=== PATIENT | female | born 1990 | race Caucasian/White ===

== ENCOUNTER → 2019-04-23 17:01 | Outpatient (CLI) | payer BC, SELFPAY ==
[2019-04-23 17:29] LABS: Basophils % 0.4 % (0.1-2.0); Eosinophils # 0.1 K/mm3 (0.0-0.4); Eosinophils % 0.5 % (0.1-12.0); Hematocrit 42.6 % (37.0-47.0); Hemoglobin 14.4 g/dL (12.2-16.2); Lymphocytes # 2.9 K/mm3 (0.7-4.5); Lymphocytes % 28.7 % (10-50); Mean Corpuscular HGB Conc 33.8 g/dL (31.8-35.4); Mean Corpuscular Hemoglobin 30.9 pg (27.0-31.2); Mean Corpuscular Volume 91.4 fl (81-99); Mean Platelet Volume 9.2 fl (7.4-10.4); Monocytes # 0.5 K/mm3 (0.1-1.0); Monocytes % 4.6 % (1.7-9.3); Neutrophils # 6.6 K/mm3 (1.8-7.8); Neutrophils % 65.8 % (37.0-80.0); Platelet Count 222 K/mm3 (142-424); Red Blood Count 4.66 M/mm3 (4.20-5.40); Red Cell Distribution Width 13.2 % (11.5-17.5)
[2019-04-23 18:14] LABS: Alanine Aminotransferase 18 U/L (12-78); Albumin Level 4.1 gm/dL (3.4-5.0); Albumin/Globulin Ratio 1.3 (1.1-1.8); Alkaline Phosphatase 81 U/L (46-116); Aspartate Amino Transferase 13 U/L (15-37); Bilirubin,Total 0.9 mg/dL (0.2-1.0); Blood Urea Nitrogen 16 mg/dL (7-18); Calcium 9.2 mg/dL (8.5-10.1); Carbon Dioxide 29 mmol/L (21.0-32.0); Chloride 102 mmol/L (98-107); Chol/HDL Ratio 2.7 (1-3.5); Cholesterol 161 mg/dL (140-200); Creatinine,Serum 0.75 mg/dL (0.55-1.02); Estimated Glomerular Filt Rate 91 ml/min (>60); GFR (African American) 110 ML/MIN (>60); Globulin 3.1 gm/dl (1.3-3.2); Glucose 87 mg/dL (74-106); HDL Cholesterol 59 mg/dL (29-89); LDL Cholesterol 86 mg/dL (0-130); Sodium 139 mmol/L (136-145); T4 (Thyroxine) 10.3 ug/dl (4.7-13.3); Thyroid Stimulating Hormone 0.68 uIU/ml (0.358-3.740); Total Protein,Serum 7.2 gm/dL (6.4-8.2); Triglycerides 81 mg/dL (30-200); VLDL Cholesterol 16 mg/dL (0-40)
[2019-04-24 19:02] LABS: Hemoglobin A1C 5.5 % (0.0-7.0)
[2019-04-27 06:36] LABS: Vitamin D 25 Hydroxy 18.8 ng/mL (30.0-100.0)
== END ==
PROVIDERS: Visit Provider Nurse Practitioner Family
DX: N89.8 Other specified noninflammatory disorders of vagina (principal); R53.83 Other fatigue
CPT/HCPCS: 80053; 80061; 82652; 83036; 84436; 84443; 85025; 87210

== ENCOUNTER → 2020-10-19 13:40 | Outpatient (CLI) | payer BC, SELFPAY ==
[2020-10-19 13:57] LABS: Alanine Aminotransferase 15 U/L (12-78); Albumin Level 4.5 g/dl (3.5-5.0); Albumin/Globulin Ratio 1.8 (1.1-1.8); Alkaline Phosphatase 74 U/L (38-126); Anion Gap 11.6 mEq/L (5-15); Aspartate Amino Transferase 21 U/L (14-36); Bilirubin,Total 1.4 mg/dl (0.2-1.3); Blood Urea Nitrogen 15 mg/dl (7-17); Calcium 8.7 mg/dl (8.4-10.2); Carbon Dioxide 28 mmol/L (22.0-30.0); Chloride 104 mmol/L (98-107); Chol/HDL Ratio 3.1 (1-3.5); Cholesterol 193 mg/dl (140-200); Estimated Glomerular Filt Rate 97 ml/min (>60); GFR (African American) 117 ML/MIN (>60); Globulin 2.5 g/dL (1.3-3.2); Glucose 107 mg/dl (74-100); HDL Cholesterol 62 mg/dl (40-60); Potassium 4.6 mmoL/L (3.5-5.1); Sodium 139 mmol/L (136-145); Triglycerides 68 mg/dl (30-150); VLDL Cholesterol 14 mg/dL (0-40)
[2020-10-19 14:08] LABS: Direct LDL Cholesterol 108.22 mg/dL (100-129)
[2020-10-19 14:13] LABS: 25-OH Vitamin D, Total 37.4 ng/mL (30-100)
[2020-10-19 14:20] LABS: Basophils % 0.4 % (0.1-2.0); Eosinophils # 0.1 K/mm3 (0.0-0.4); Eosinophils % 0.9 % (0.1-12.0); Hematocrit 43.4 % (37.0-47.0); Hemoglobin 14.3 g/dL (12.2-16.2); Lymphocytes # 2.4 K/mm3 (0.7-4.5); Lymphocytes % 33.6 % (10-50); Mean Corpuscular Hemoglobin 29.9 pg (27.0-31.2); Mean Corpuscular Volume 90.7 fl (81-99); Mean Platelet Volume 8.8 fl (7.4-10.4); Monocytes # 0.3 K/mm3 (0.1-1.0); Monocytes % 4.6 % (1.7-9.3); Neutrophils # 4.3 K/mm3 (1.8-7.8); Neutrophils % 60.5 % (37.0-80.0); Platelet Count 256 K/mm3 (142-424); Red Blood Count 4.78 M/mm3 (4.20-5.40); White Blood Count 7.1 K/mm3 (4.8-10.8)
[2020-10-19 14:27] LABS: Thyroid Stimulating Hormone 0.42 uIU/mL (0.465-4.68)
== END ==
PROVIDERS: Visit Provider Nurse Practitioner Family
DX: Z00.00 Encounter for general adult medical examination without abnormal findings (principal)
CPT/HCPCS: 80053; 80061; 82306; 84436; 84443; 85025

== ENCOUNTER 2021-04-23 12:27 | Emergency (ER) | payer BC, SELFPAY ==
[2021-04-23 15:00] VITALS: BP 124/77; PULSE 66; RESP 18; TEMP 36.9; O2SAT 99; BMI 26.6
--- NOTE | 2021-04-23 15:11 | HMH.EDUTC ---
[facility] [place] Disposition Clinical Impression: Pharyngitis Qualifiers: Pharyngitis/tonsillitis etiology: unspecified etiology Qualified Code(s): J02.9 - Acute pharyngitis, unspecified Disposition: Home, Self-Care Condition on Discharge: Good Instructions: Sore Throat, DI for Pharyngitis/Tonsillopharyngitis -- Adult Additional Instructions: Drink plenty of fluids. Take tylenol or ibuprofen for pain or fever. Take the medications as directed. Follow up with your regular doctor. GO TO THE ER FOR ANY WORSENING SYMPTOMS Prescriptions: Amoxicillin/Potassium Clav [Augmentin 500mg tab] 500 mg PO TID #30 tab Transmission Status: Received by [id number] predniSONE [Prednisone 20mg Tab] 20 mg PO BID 3 Days #6 tab Transmission Status: Received by [id number] Referrals: Shayla Glez PA [Primary Care Provider] - Forms: Work/School Release Time of Disposition: 15:15 Medical Decision Making - Medical Records Medical records reviewed: No: I reviewed the patient's medical records. - Rhett Inquiry Pt receiving controlled substance: No Vital Signs: 04/23/21 15:00 04/23/21 15:21 Temperature 98.4 F 98.4 F Temperature Source Oral Pulse Rate 66 Pulse Rate [Right Brachial] 66 Respiratory Rate 18 18 Blood Pressure 124/77 Blood Pressure [Right Arm] 124/77 Blood Pressure Mean [Right Arm] 92 Blood Pressure Source [Right Arm] Automatic Cuff Blood Pressure Position [Right Arm] Sitting 02 Sat by Pulse Oximetry 99 Oxygen Delivery Method Room Air Room Air - Lab Data Lab results reviewed: Yes: I reviewed the patient's lab results. Lab Results 04/23/21 14:36: Strep Scn Rapid Clinic Negative Orders (Tests/Meds): ORDERS Category Date Time Status Strep Screen Confirmation Routine Micro 04/23/21 14:36 Received [facility] [place] HPI - General Stated complaint: sore throat, runny nose, congestion Time Seen by Provider: 04/23/21 15:00 Mode of Arrival: Ambulatory Source of Information: Patient Description of Symptoms (Recalled from Triage Doc. by RN): sore throat. congestion. cough HEENT Symptoms (Recalled from RN notes): Yes Resp Symptoms (Recalled from RN notes): Yes Skin Symptoms (Recalled from RN notes): No MS Symptoms (Recalled from RN notes): No Functional Status (Recalled from RN notes): yes - History of Present Illness Provider Complaint: She c/o sore throat, sinus congestion, and a cough for the past 3 days. - Related Data Previous Rx's Medication Instructions Recorded bupropion HCl 100 mg tablet 100 mg PO BID #180 tab 10/20/20 lbiyvvwgquiffxx-tglzeumtlszygku-ON 5 ml PO Q4-6H PRN #118 ml 02/10/21 2 mg-30 mg-10 mg/5 mL oral syrup methylprednisolone 4 mg tablets in See Rx Instructions PO PER PKG DIR 02/10/21 a dose pack #21 tab ondansetron HCl 4 mg tablet 4 mg PO Q8H PRN #10 tab 02/10/21 fluconazole 150 mg tablet 150 mg PO Q OTHER DAY #3 tab 02/20/21 Amoxicillin/Potassium Clav 500 mg PO TID #30 tab 04/23/21 [Augmentin 500mg tab] predniSONE [Prednisone 20mg 20 mg PO BID 3 Days #6 tab 04/23/21 Tab] Allergies Allergy/AdvReac Type Severity Reaction Status Date / Time acetaminophen Allergy Mild Hives Verified 10/19/20 10:21 [From Childrens Tylenol Plus MS Cold] chlorpheniramine Allergy Mild Hives Verified 10/19/20 10:21 [From Childrens Tylenol Plus MS Cold] dextromethorphan Allergy Mild Hives Verified 10/19/20 10:21 [From Childrens Tylenol Plus MS Cold] phenylephrine Allergy Mild Hives Verified 10/19/20 10:21 [From Childrens Tylenol Plus MS Cold] - Worker's Comp Is this a Worker's Comp case?: No Is this an H Worker's Comp?: No Is this a Luis Armando Worker's Comp?: No [facility] History - Hepatitis A Screen Drug use history?: No High risk sexual behaviors?: No History of sexually transmitted infection?: No Currently employed?: No Childcare worker?: No Do you have indoor plumbing?: Yes Do
[2021-04-23 15:20] LABS: UTC Strep Screen (Rapid) Negative (Negative)
[2021-04-23 15:21] VITALS: BP 124/77; PULSE 66; RESP 18; TEMP 36.9; O2SAT 99
== END 2021-04-23 15:21 | disposition home or self-care (01) ==
PROVIDERS: Emergency Provider Nurse Practitioner Family; PCP Physician Assistant
DX: J02.9 Acute pharyngitis, unspecified (principal); F33.1 Major depressive disorder, recurrent, moderate; Z79.899 Other long term (current) drug therapy
CPT/HCPCS: 87880; 99202; G0463

== ENCOUNTER → 2021-07-26 14:48 | Outpatient (CLI) | payer BC, SELFPAY ==
[2021-07-26 14:00] LABS: Chloride 97 mmol/L (98-107)
[2021-07-26 14:01] LABS: Potassium 4.8 mmoL/L (3.5-5.1); Sodium 134 mmol/L (136-145)
[2021-07-26 14:03] LABS: Alanine Aminotransferase 18 U/L (12-78); Alkaline Phosphatase 79 U/L (38-126); Anion Gap 11.8 mEq/L (5-15); Aspartate Amino Transferase 31 U/L (14-36); Bilirubin,Total 1.2 mg/dl (0.2-1.3); Blood Urea Nitrogen 18 mg/dl (7-17); Carbon Dioxide 30 mmol/L (22.0-30.0); Cholesterol 216 mg/dl (140-200); Estimated Glomerular Filt Rate 96 ml/min (>60); GFR (African American) 117 ML/MIN (>60); Triglycerides 184 mg/dl (30-150); VLDL Cholesterol 37 mg/dL (0-40)
[2021-07-26 14:04] LABS: Albumin Level 4.7 g/dl (3.5-5.0); Albumin/Globulin Ratio 1.7 (1.1-1.8); Calcium 8.8 mg/dl (8.4-10.2); Chol/HDL Ratio 3.3 (1-3.5); Globulin 2.7 g/dL (1.3-3.2); Glucose 93 mg/dl (74-100); HDL Cholesterol 65 mg/dl (40-60); Total Protein,Serum 7.4 g/dl (6.3-8.2)
[2021-07-26 14:14] LABS: 25-OH Vitamin D, Total 33.6 ng/mL (30-100)
[2021-07-26 14:31] LABS: Thyroid Stimulating Hormone 0.91 uIU/mL (0.465-4.68)
== END ==
PROVIDERS: Visit Provider Physician Assistant
DX: R53.83 Other fatigue (principal); E66.9 Obesity, unspecified; Z68.29 Body mass index [BMI] 29.0-29.9, adult
CPT/HCPCS: 80053; 80061; 82306; 84443

== ENCOUNTER → 2021-07-27 16:00 | Outpatient (CLI) | payer BC, SELFPAY ==
[2021-07-27 20:33] LABS: Basophils % 0.6 % (0.1-2.0); Eosinophils # 0.1 K/mm3 (0.0-0.4); Hematocrit 45.1 % (37.0-47.0); Lymphocytes # 1.8 K/mm3 (0.7-4.5); Lymphocytes % 31.9 % (10-50); Mean Corpuscular HGB Conc 33.3 g/dL (31.8-35.4); Mean Corpuscular Hemoglobin 30.5 pg (27.0-31.2); Mean Corpuscular Volume 91.7 fl (81-99); Mean Platelet Volume 9.5 fl (7.4-10.4); Monocytes # 0.5 K/mm3 (0.1-1.0); Monocytes % 7.9 % (1.7-9.3); Neutrophils # 3.3 K/mm3 (1.8-7.8); Neutrophils % 58.6 % (37.0-80.0); Platelet Count 250 K/mm3 (142-424); Red Blood Count 4.91 M/mm3 (4.20-5.40); Red Cell Distribution Width 12.7 % (11.5-17.5); White Blood Count 5.6 K/mm3 (4.8-10.8)
[2021-07-27 21:00] LABS: Vitamin B12 628 pg/mL (239-931)
== END ==
PROVIDERS: Visit Provider Physician Assistant
DX: R53.83 Other fatigue (principal)
CPT/HCPCS: 82607; 85025

== ENCOUNTER 2021-07-29 11:23 | Emergency (ER) | payer BC, SELFPAY ==
[2021-07-29 13:18] VITALS: BP 140/79; PULSE 88; RESP 21; TEMP 36.8; O2SAT 100; BMI 29.2
--- NOTE | 2021-07-29 14:03 | HMH.EDUTC ---
[facility] [place] Clinical Impression: Sinusitis Qualifiers: Sinusitis location: unspecified location Chronicity: acute Recurrence: non-recurrent Qualified Code(s): J01.90 - Acute sinusitis, unspecified Disposition: Home, Self-Care Condition on Discharge: Good Instructions: DI for Sinusitis Additional Instructions: Drink plenty of fluids. Take tylenol or ibuprofen for pain or fever. Take the medications as directed. Follow up with your regular doctor. GO TO THE ER FOR ANY WORSENING SYMPTOMS The cough medication (promethazine dm) will make you drowsy, so don't drive or operate heavy machinery after taking it. Prescriptions: Amoxicillin/Potassium Clav [Augmentin 875-125 Tablet] 1 tab PO Q12H 10 Days #20 tab Transmission Status: Re[facility] by [facility] Benzonatate [Benzonatate 100mg cap] 100 mg PO TIDP PRN #30 cap PRN Reason: Cough Transmission Status: Received by [facility] Fluconazole [Diflucan 150mg tab] 150 mg PO ONCE #1 tab Transmission Status: Re[facility] by [facility] methylPREDNISolone [Medrol] 4 mg PO DIRECTED 6 Days #21 packet Transmission Status: Received by [facility] Referrals: Shayla Glez PA [Primary Care Provider] - Time of Disposition: 14:11 Medical Decision Making - Medical Records Medical records reviewed: No: I reviewed the patient's medical records. - Rhett Inquiry Pt receiving controlled substance: No Vital Signs: 07/29/21 13:18 07/29/21 14:27 Temperature 98.3 F 98.3 F Temperature Source Oral Pulse Rate 88 Pulse Rate [Left] 88 Respiratory Rate 21 21 Blood Pressure 140/79 Blood Pressure [Right Arm] 140/79 Blood Pressure Mean [Right Arm] 99 Blood Pressure Source Automatic Cuff 02 Sat by Pulse Oximetry 100 - Lab Data Lab Results 07/29/21 13:24: Strep Scn Rapid Clinic Positive [place] [facility] [place] - General Stated complaint: cough, congestion, sinus pressure Time Seen by Provider: 07/29/21 13:35 Mode of Arrival: Ambulatory Source of Information: Patient Limitations: No Limitations Description of Symptoms (Recalled from Triage Doc. by RN): . pt c/o nasal drainage/congestion, cough and BALDERAS x5 days. pt had a negative covid test at work on 2.23. HEENT Symptoms (Recalled from RN notes): Yes Resp Symptoms (Recalled from RN notes): Yes Skin Symptoms (Recalled from RN notes): No MS Symptoms (Recalled from RN notes): No Functional Status (Recalled from RN notes): wnl - History of Present Illness Provider Complaint: pt thinks she has a sinus infection - Related Data Previous Rx's Medication Instructions Recorded fluoxetine 20 mg capsule 20 mg PO DAILY #30 cap 06/29/21 vilazodone 20 mg tablet 20 mg PO DAILY 30 Days #30 tab 06/29/21 ondansetron 8 mg disintegrating 8 mg PO Q8H 5 Days #10 tab 07/26/21 tablet Amoxicillin/Potassium Clav 1 tab PO Q12H 10 Days #20 tab 07/29/21 [Augmentin 875-125 Tablet] Benzonatate [Benzonatate 100mg 100 mg PO TIDP PRN #30 cap 07/29/21 cap] Fluconazole [Diflucan 150mg tab] 150 mg PO ONCE #1 tab 07/29/21 methylPREDNISolone [Medrol] 4 mg PO DIRECTED 6 Days #21 07/29/21 packet Allergies Allergy/AdvReac Type Severity Reaction Status Date / Time acetaminophen Allergy Mild Hives Verified 07/26/21 08:44 [From Childrens Tylenol Plus MS Cold] chlorpheniramine Allergy Mild Hives Verified 07/26/21 08:44 [From Childrens Tylenol Plus MS Cold] dextromethorphan Allergy Mild Hives Verified 07/26/21 08:44 [From Childrens Tylenol Plus MS Cold] phenylephrine Allergy Mild Hives Verified 07/26/21 08:44 [From Childrens Tylenol Plus MS Cold] - Worker's Comp Is this a Worker's Comp case?: No [facility] History - Hepatitis A Screen Drug use history?: No High risk sexual behaviors?: No History of sexually transmitted infection?: No Currently employed?: No Childcare worker?: No Do you have indoor plumbing?: Yes Do
[2021-07-29 14:27] VITALS: BP 140/79; PULSE 88; RESP 21; TEMP 36.8
[2021-07-29 19:03] LABS: UTC Strep Screen (Rapid) Positive (Negative)
== END 2021-07-29 14:28 | disposition home or self-care (01) ==
PROVIDERS: Emergency Provider Nurse Practitioner Family; PCP Physician Assistant
DX: J01.90 Acute sinusitis, unspecified (principal)
CPT/HCPCS: 87880; 99202; G0463

== ENCOUNTER 2021-09-02 10:21 | Emergency (ER) | payer BC, SELFPAY ==
[2021-09-02 10:25] VITALS: BP 115/77; PULSE 96; RESP 17; TEMP 36.9; O2SAT 98; BMI 25.7
--- NOTE | 2021-09-02 10:50 | HMH.EDUTC ---
[facility] [place] Dis[place] Clinical Impression: Otitis media Qualifiers: Otitis media type: suppurative Chronicity: acute Laterality: left Recurrence: non-recurrent Spontaneous tympanic membrane rupture: without spontaneous rupture Qualified Code(s): H66.002 - Acute suppurative otitis media without spontaneous rupture of ear drum, left ear Disposition: Home, Self-Care Condition on Discharge: Good Instructions: Middle Ear Infection Additional Instructions: Start antibiotic as soon as possible and be sure to take as ordered for full length of time even though he should start feeling better in 24-48 hours. Tylenol or Motrin as needed for pain or fever Encourage fluids, water, Gatorade, Powerade, Pedialyte if /toddler/child Warm compresses often helps when placed over ear Return immediately for new or worsening symptoms no noticeable improvement in 48-72 hours and in 10-14 days to ensure the ears are return to baseline. Follow-up with primary care Prescriptions: Amoxicillin [Amoxicillin 500mg Tab] 500 mg PO BID 10 Days #20 tab Transmission Status: Pending to [id number] Referrals: Shayla Glez PA [Primary Care Provider] - Time of Disposition: 11:00 Medical Decision Making - Rhett Inquiry Pt receiving controlled substance: No Vital Signs: 09/02/21 10:25 Temperature 98.5 F Temperature Source Oral Pulse Rate [Right Brachial] 96 H Respiratory Rate 17 Blood Pressure [Right Arm] 115/77 Blood Pressure Mean [Right Arm] 89 Blood Pressure Source [Right Arm] Automatic Cuff Blood Pressure Position [Right Arm] Sitting 02 Sat by Pulse Oximetry 98 Oxygen Delivery Method Room Air Orders (Tests/Meds): ORDERS Category Date Time Status Rapid Strep Scrn Group A [Strep Scrn Group A (Rapid)] Lab 09/02/21 10:33 Ordered Stat [facility] [place] HPI - General Chief complaint: Urgent [facility] Stated complaint: ear pain,sore throat,cough,congestion Time Seen by Provider: 09/02/21 10:50 Mode of Arrival: Ambulatory Source of Information: Patient Limitations: No Limitations Description of Symptoms (Recalled from Triage Doc. by RN): PATIENT C/O SORE THROAT, CONGESTION, AND BILATERAL EARACHE SINCE SATURDAY HEENT Symptoms (Recalled from RN notes): Yes Resp Symptoms (Recalled from RN notes): No Skin Symptoms (Recalled from RN notes): No MS Symptoms (Recalled from RN notes): No Functional Status (Recalled from RN notes): WNL - History of Present Illness Provider Complaint: 31 yr old female presents for deborah ear pain, sore throat and sinus congestion. - Related Data Home Medications Medication Instructions Recorded Confirmed Vilazodone HCl [Viibryd 20mg 20 mg PO DAILY 09/02/21 09/02/21 Tablet] Previous Rx's Medication Instructions Recorded Amoxicillin [Amoxicillin 500mg Tab] 500 mg PO BID 10 Days #20 tab 09/02/21 Allergies Allergy/AdvReac Type Severity Reaction Status Date / Time acetaminophen Allergy Mild Hives Verified 07/26/21 08:44 [From Childrens Tylenol Plus MS Cold] chlorpheniramine Allergy Mild Hives Verified 07/26/21 08:44 [From Childrens Tylenol Plus MS Cold] dextromethorphan Allergy Mild Hives Verified 07/26/21 08:44 [From Childrens Tylenol Plus MS Cold] phenylephrine Allergy Mild Hives Verified 07/26/21 08:44 [From Childrens Tylenol Plus MS Cold] - Worker's Comp Is this a Worker's Comp case?: No [facility] History - Hepatitis A Screen Drug use history?: No High risk sexual behaviors?: No History of sexually transmitted infection?: No Currently employed?: No Childcare worker?: No Do you have indoor plumbing?: Yes Do you have electricity?: Yes Attestation statement:: This patient has been screened for Hepatitis A risk factors. I have reviewed the patient's past medical history: Yes Medical History: Reports:: Depression, Kidney Stones Comment: She has not had the COVID vaccines Other Surgeries: Yes: Tubal Ligation, Other Am
[2021-09-02 10:52] LABS: UTC Influenza A Antigen Negative (Negative); UTC Influenza B Antigen Negative (Negative)
[2021-09-02 10:59] VITALS: BP 115/77; PULSE 96; RESP 17; TEMP 36.9; O2SAT 98
[2021-09-02 11:12] LABS: Strep Scrn Group A (Rapid) Negative (Negative)
== END 2021-09-02 11:03 | disposition home or self-care (01) ==
PROVIDERS: Emergency Provider Nurse Practitioner Family; PCP Physician Assistant
DX: H66.002 Acute suppurative otitis media without spontaneous rupture of ear drum, left ear (principal); H92.01 Otalgia, right ear; J02.9 Acute pharyngitis, unspecified; R09.81 Nasal congestion; F32.A Depression, unspecified; Z79.899 Other long term (current) drug therapy; Z28.310 Unvaccinated for COVID-19; Z87.442 Personal history of urinary calculi
CPT/HCPCS: 87430; 87804; 99213; G0463

== ENCOUNTER → 2021-10-10 09:10 | Outpatient (POV) | payer BC, SELFPAY | PROVIDERS: Visit Provider Dermatology | DX: Z00.00 Encounter for general adult medical examination without abnormal findings (principal) ==

== ENCOUNTER → 2021-10-13 11:04 | Outpatient (CLI) | payer BC, SELFPAY ==
--- NOTE | 2021-10-13 12:35 | XR_ITS ---
FINAL REPORT CLINICAL HISTORY: acute cough FINDINGS: Two views of the chest were obtained. The heart size and pulmonary vascularity are within normal limits. The mediastinum is normal. No acute pulmonary abnormality is identified. There is no pneumothorax. The bony thorax is intact. IMPRESSION: No active cardiopulmonary disease. Reviewed, Interpreted and Dictated by Gordy Mitchell III, MD Transcribed by Merlene Garcia Authenticated by Gordy Mitchell III, MD on 10/13/2021 01:35:[address] [facility]
== END ==
PROVIDERS: PCP Physician Assistant; Visit Provider Physician Assistant
DX: R05.9 Cough, unspecified (principal)
CPT/HCPCS: 71046; 94060; 94618; 94726; 94729

== ENCOUNTER 2022-02-23 09:21 | Emergency (ER) | payer BC, SELFPAY ==
[2022-02-23 09:34] VITALS: BP 134/77; PULSE 88; RESP 16; TEMP 36.6; O2SAT 98; BMI 30.2
--- NOTE | 2022-02-23 09:40 | EXP.UTC ---
Discharge Plan Disposition Patient Disposition: Home, Self-Care Condition: Good Prescriptions Prescriptions: New phenazopyridine [Pyridium] 200 mg tablet 200 mg PO Q8H Qty: 6 0RF ondansetron 4 mg Tablet,Disintegrating 4 mg PO Q8H PRN (Reason: Nausea) Qty: 12 0RF nitrofurantoin monohyd/m-cryst [Macrobid] 100 mg Capsule 100 mg PO BID Qty: 10 0RF Rx Instructions: must administer with a meal/food No Action vilazodone 20 mg tablet 20 mg PO DAILY Qty: 30 1RF Referrals Follow up/Referrals: Shayla Glez PA [Primary Care Provider] - See instructions Activity Restrictions/Add. Instructions Additional Instructions/Restrictions: Drink plenty of fluids. Take tylenol or ibuprofen for pain or fever. Take the medications as directed. Follow up with your regular doctor. GO TO THE ER FOR ANY WORSENING SYMPTOMS Discuss the pyridium with your pharmacist. Sometimes people that are allergic to acetaminophen can't take this medication. Follow your pharmacist advice and call me here at the [facility] if I need to change anything. The pyridium will make your urine turn orange, this is an expected side effect. It will stain your clothes if it comes into contact with them. We will culture the urine. That will tell what bacteria is causing your infection and which antibiotics will treat it best. Sometimes the first antibiotic we prescribe turns out to not work against different bacteria. So, make sure you follow up within 3 days if you are not getting better. Clinical Impressions Clinical Impression: UTI (urinary tract infection) Stand Alone Forms Stand Alone Forms: Work/School Release Instructions Patient Instructions: Urinary Tract Infection, Urine Culture, DI for Urinary Tract Infection (UTI), Phenazopyridine Discharge ED Provider: [place] Chong [facility] [place] General Stated complaint: Possible UTI Mode of Arrival: Ambulatory Source of Information: Patient Limitations: No Limitations Time Seen by Provider: 02/23/22 09:40 Description of Symptoms (Recalled from Triage Doc. by RN): pt comes in with c/o burning with urination. symptoms began 2 days ago. HEENT Symptoms (Recalled from RN notes): No Resp Symptoms (Recalled from RN notes): No Skin Symptoms (Recalled from RN notes): No MS Symptoms (Recalled from RN notes): No Functional Status (Recalled from RN notes): n/a History of Present Illness Provider Complaint: She c/o dysuria, urinary frequency and low back pain that began 2 days ago. Related Data Previous Rx's Medication Instructions Recorded vilazodone 20 mg tablet 20 mg PO DAILY Anxiety #30 tabs 01/01/22 nitrofurantoin 100 mg PO BID #10 caps 02/23/22 monohydrate/macrocrystals 100 mg capsule (Macrobid) ondansetron 4 mg disintegrating 4 mg PO Q8H PRN Nausea #12 tabs 02/23/22 tablet phenazopyridine 200 mg tablet 200 mg PO Q8H 6 doses #6 tabs 02/23/22 (Pyridium) Allergies Allergy/AdvReac Type Severity Reaction Status Date / Time acetaminophen Allergy Mild Hives Verified 02/23/22 09:39 [From Childrens Tylenol Plus MS Cold] chlorpheniramine Allergy Mild Hives Verified 02/23/22 09:39 [From Childrens Tylenol Plus MS Cold] dextromethorphan Allergy Mild Hives Verified 02/23/22 09:39 [From Childrens Tylenol Plus MS Cold] phenylephrine Allergy Mild Hives Verified 02/23/22 09:39 [From Childrens Tylenol Plus MS Cold] Worker's Comp Is this a Worker's Comp case?: No PFSH PFSH Medical History Anxiety Depression Kidney stones Social History Smoking Status: Never smoker alcohol intake: never substance use type: denies use current occupational status: employed and other Travel in the last 8 weeks: None number of children: 3 ROS Obtained: Yes All systems reviewed & no additional complaints except as document
[2022-02-23 09:45] LABS: Apearance,Urine Clear (Clear); Color,Urine Orange (Yellow); Protein,Urine Trace (Negative); Specific Gravity, Urine 1.025 (1.005-1.030)
[2022-02-23 09:46] LABS: Bilirubin,Urine Negative (Negative); Blood, Urine 2+ (Negative); Glucose,Urine (UA) Negative (Negative); Ketones,Urine Negative (Negative); UTC Leukocyte Esterase,Urine Negative (Negative); UTC Nitrate,Urine Positive (Negative); Urobilinogen,Urine 2 EU/dl (0.2)
[2022-02-23 10:15] VITALS: BP 134/77; PULSE 88; RESP 16; TEMP 36.6
== END 2022-02-23 10:15 | disposition home or self-care (01) ==
PROVIDERS: Emergency Provider Nurse Practitioner Family; PCP Physician Assistant
DX: N39.0 Urinary tract infection, site not specified (principal)
CPT/HCPCS: 81003; 87086; 99212; G0463

== ENCOUNTER 2022-04-24 08:44 | Emergency (ER) | payer BC, SELFPAY ==
[2022-04-24 08:55] VITALS: BP 132/80; PULSE 119; RESP 19; TEMP 37.1; O2SAT 97; BMI 27.4
--- NOTE | 2022-04-24 09:05 | EXP.UTC ---
Discharge Plan Disposition Patient Disposition: Home, Self-Care Condition: Good Prescriptions Prescriptions: New oseltamivir [Tamiflu] 75 mg capsule 75 mg PO BID Qty: 10 0RF ondansetron 4 mg tablet,disintegrating 4 mg PO Q8H PRN (Reason: nausea and vomiting) Qty: 10 0RF No Action vilazodone [Viibryd] 40 mg tablet 40 mg PO DAILY Qty: 30 1RF Rx Instructions: must administer with a meal/food Referrals Follow up/Referrals: Shayla Glez PA [Primary Care Provider] - See instructions Activity Restrictions/Add. Instructions Additional Instructions/Restrictions: Start Tamiflu today if you are going to take it. Discussed risk and possible benefits. Lots of rest Increase Fluids water, Gatorade, powerade, pedialyte,if /toddler/child Alternate Tylenol and / or ibuprofen as discussed for fever, aches, chills Follow up IMMEDIATELY with your family doctor for new or worsening Symptoms OR no noticeable improvement over the next 48-72 hours, 911 for difficulty or breathing You or your child area contagious until no fever, aches, chills for 24 hours with medication for symptoms Help Prevent the spread of influenza: ?Wash your hands often. Use soap and water. Wash your hands after you use the bathroom, change a child's diapers, or sneeze. Wash your hands before you prepare or eat food. Use gel hand cleanser that has 60% alcohol, when soap and water are not available. Do not touch your eyes, nose, or mouth unless you have washed your hands first. Cover your mouth when you sneeze or cough. Cough into a tissue or the bend of your arm. If you use a tissue, throw it away immediately and wash your hands. Clean shared items with a germ-killing grain cleaner and transfer operator. Clean table surfaces, doorknobs, and light switches. Do not share towels, silverware, and dishes with people who are sick. Wash bed sheets, towels, silverware, and dishes with soap and water. Wear a mask over your mouth and nose if you are sick. The face mask may help protect others from becoming infected with the flu. Wear the mask when in common areas of your home or if you seek care with a healthcare provider. Stay away from others if you are sick. Stay at home until 24 hours after your fever and symptoms are gone. Clinical Impressions Clinical Impression: Influenza Stand Alone Forms Stand Alone Forms: Work/School Release Instructions Patient Instructions: DI for Influenza -- Adult, Influenza Discharge ED Provider: Ruma Tony [facility] [place] H[place] General Stated complaint: nausea, diarrhea, body aches, vomiting, fever Time Seen by Provider: 04/24/22 09:05 History of Present Illness Provider Complaint: Patient states that her is positive for the AH3 flu right now and she has now started having the same symptoms State that she has been having body aches, chills, N/V/D and fever States that she thinks she may have it now too so today she came in to get checked Related Data Previous Rx's Medication Instructions Recorded vilazodone 40 mg tablet (Viibryd) 40 mg PO DAILY #30 tabs 04/02/22 ondansetron 4 mg disintegrating 4 mg PO Q8H PRN nausea and 04/24/22 tablet vomiting #10 tabs oseltamivir 75 mg capsule (Tamiflu) 75 mg PO BID #10 caps 04/24/22 Allergies Allergy/AdvReac Type Severity Reaction Status Date / Time acetaminophen Allergy Mild Hives Verified 04/02/22 08:20 [From Childrens Tylenol Plus MS Cold] chlorpheniramine Allergy Mild Hives Verified 04/02/22 08:20 [From Childrens Tylenol Plus MS Cold] dextromethorphan Allergy Mild Hives Verified 04/02/22 08:20 [From Childrens Tylenol Plus MS Cold] phenylephrine Allergy Mild Hives Verified 04/02/22 08:20 [From Childrens Tylenol Plus MS Cold] [facility] Medical History (Updated 04/24/22 @ 0
[2022-04-24 09:09] LABS: UTC Influenza A Antigen Negative (Negative); UTC Influenza B Antigen Negative (Negative)
[2022-04-24 09:18] VITALS: BP 132/80; PULSE 119; RESP 19; TEMP 37.1; O2SAT 97
== END 2022-04-24 09:22 | disposition home or self-care (01) ==
PROVIDERS: Emergency Provider Nurse Practitioner; PCP Physician Assistant
DX: R11.2 Nausea with vomiting, unspecified (principal); R19.7 Diarrhea, unspecified; R50.9 Fever, unspecified; M79.10 Myalgia, unspecified site; F32.A Depression, unspecified; F41.9 Anxiety disorder, unspecified; Z79.52 Long term (current) use of systemic steroids; Z79.899 Other long term (current) drug therapy; Z88.8 Allergy status to other drugs, medicaments and biological substances
CPT/HCPCS: 87804; 99213; G0463

== ENCOUNTER 2022-05-04 17:19 | Emergency (ER) | payer BC, SELFPAY ==
--- NOTE | 2022-05-04 18:22 | EXP.UTC ---
Discharge Plan Disposition Patient Disposition: Home, Self-Care Condition: Good Prescriptions Prescriptions: New azithromycin [Zithromax] 250 mg tablet 250 mg PO UD DOSE PK Qty: 6 0RF Rx Instructions: Take two (2) tablets today, then one (1) tablet days #2 thru #5 methylprednisolone 4 mg Tablets,Dose Pack 4 mg PO DIRECTED Qty: 21 0RF [id number] [Bromfed DM] 2-30-10 mg/5 mL Syrup 5 ml PO Q6H PRN (Reason: Cough) Qty: 240 0RF No Action vilazodone [Viibryd] 40 mg tablet 40 mg PO DAILY Qty: 30 1RF Rx Instructions: must administer with a meal/food oseltamivir [Tamiflu] 75 mg capsule 75 mg PO BID Qty: 10 0RF ondansetron 4 mg tablet,disintegrating 4 mg PO Q8H PRN (Reason: nausea and vomiting) Qty: 10 0RF Referrals Follow up/Referrals: Shayla Glez PA [Primary Care Provider] - See instructions Activity Restrictions/Add. Instructions Additional Instructions/Restrictions: Drink plenty of fluids. Take tylenol or ibuprofen for pain or fever. Take the medications as directed. Follow up with your regular doctor. GO TO THE ER FOR ANY WORSENING SYMPTOMS Clinical Impressions Clinical Impression: Sinusitis, Bronchitis Instructions Patient Instructions: Sinusitis, DI for Sinusitis, DI for Acute Bronchitis Discharge ED Provider: Modesto Chong [facility] General Stated complaint: cough,ears congestion Time Seen by Provider: 05/04/22 18:21 History of Present Illness Provider Complaint: she states that over the past 1 week she has had sinus congestion. Now she is starting to have chest congestion. She denies any fever or chills. Related Data Previous Rx's Medication Instructions Recorded vilazodone 40 mg tablet (Viibryd) 40 mg PO DAILY #30 tabs 04/02/22 ondansetron 4 mg disintegrating 4 mg PO Q8H PRN nausea and 04/24/22 tablet vomiting #10 tabs oseltamivir 75 mg capsule (Tamiflu) 75 mg PO BID #10 caps 04/24/22 azithromycin 250 mg tablet 250 mg PO UD DOSE PK #6 tabs 05/04/22 (Zithromax) [id number]-rbyyfcakedqndqi-IN 5 ml PO Q6H PRN Cough #240 mL 05/04/22 2 mg-30 mg-10 mg/5 mL oral syrup (Bromfed DM) methylprednisolone 4 mg tablets in 4 mg PO DIRECTED #21 tabs 05/04/22 a dose pack Allergies Allergy/AdvReac Type Severity Reaction Status Date / Time acetaminophen Allergy Mild Hives Verified 05/04/22 18:47 [From Childrens Tylenol Plus MS Cold] chlorpheniramine Allergy Mild Hives Verified 05/04/22 18:47 [From Childrens Tylenol Plus MS Cold] dextromethorphan Allergy Mild Hives Verified 05/04/22 18:47 [From Childrens Tylenol Plus MS Cold] phenylephrine Allergy Mild Hives Verified 05/04/22 18:47 [From Childrens Tylenol Plus MS Cold] [facility] Disclaimer: The information contained in this section may have been updated after the patient was seen, as this information can be updated by other users. Medical History Anxiety Depression Gestational diabetes Kidney stones Surgical History History of tubal ligation Social History Smoking Status: Never smoker alcohol intake: never substance use type: denies use current occupational status: employed and other Travel in the last 8 weeks: None number of children: 3 ROS Obtained: Yes All systems reviewed & no additional complaints except as documented Constitutional Constitutional: Reports chills and Reports fever(s) Eyes Eyes: Denies eye discharge ENT Ears, Nose, Mouth, and Throat: Reports as per HPI Cardiovascular Cardiovascular: Denies chest pain Respiratory Respiratory: Denies chest congestion and Reports cough Gastrointestinal Gastrointestingal: Reports nausea; Denies abdominal pain, constipation, cramping, diarrhea or vomiting Musculoskeletal Musculosk
[2022-05-04 18:35] VITALS: BP 108/78; PULSE 85; RESP 16; TEMP 36.8; O2SAT 99; BMI 30.2
[2022-05-04 19:05] VITALS: BP 108/78; PULSE 85; RESP 16; TEMP 36.8
== END 2022-05-04 19:05 | disposition home or self-care (01) ==
PROVIDERS: Emergency Provider Nurse Practitioner Family; PCP Physician Assistant
DX: J40 Bronchitis, not specified as acute or chronic (principal); J32.9 Chronic sinusitis, unspecified
CPT/HCPCS: 99212; G0463

== ENCOUNTER 2022-05-22 11:25 | Emergency (ER) | payer BC, SELFPAY ==
[2022-05-22 12:25] VITALS: BP 114/79; PULSE 95; RESP 18; TEMP 36.9; O2SAT 98; BMI 28.3
--- NOTE | 2022-05-22 12:41 | EXP.UTC ---
Discharge Plan Disposition Patient Disposition: Home, Self-Care Condition: Good Prescriptions Prescriptions: New amoxicillin-pot clavulanate 875-125 mg Tablet 1 tab PO Q12H Qty: 14 0RF polymyxin B sulf-trimethoprim [Polytrim] 10,000 unit- 1 mg/mL drops 2 drp ophthalmic (eye) Q6H 7 Days Qty: 10 0RF Rx Instructions: while awake; do not exceed 6 doses in 24 hours No Action vilazodone [Viibryd] 40 mg tablet 40 mg PO DAILY Qty: 30 1RF Rx Instructions: must administer with a meal/food aripiprazole [Abilify] 5 mg tablet 5 mg PO QHS Qty: 30 1RF Referrals Follow up/Referrals: Shayla Glez PA [Primary Care Provider] - See instructions Activity Restrictions/Add. Instructions Additional Instructions/Restrictions: *Monitor Temp, Over the counter Motrin or Tylenol as directed/as needed Tylenol every 4 hours and Motrin every 6 hours (as long as your family doctor has told you that you can take it) for fever or pain. and straight to ER if unable to lower temp less than 101.0 after medication given *Warm salt water gargles may help to soothe the throat *Throat Lozenges? *Warm fluids like tea with honey may help to soothe the throat? *Sleep elevated *Humidifier/Vaporizer Wash hands before and after applying drops Clean matting from eyes with warm water and baby shampoo Follow up IMMEDIATELY for new or worsening symptoms or no Noticeable improvement over the next 48-72 hours. 911 for difficulty breathing or swallowing Clinical Impressions Clinical Impression: Sinusitis, Conjunctivitis Instructions Patient Instructions: Sinusitis, DI for Sinusitis, DI for Conjunctivitis, Conjunctivitis Discharge ED Provider: Ruma Tony [facility] General Stated complaint: Eye redness w/drainage, congestion Mode of Arrival: Ambulatory Source of Information: Patient Limitations: No Limitations Time Seen by Provider: 05/22/22 12:41 Description of Symptoms (Recalled from Triage Doc. by RN): PATIENT C/O REDNESS AND DRAINAGE TO LEFT EYE AND CONGESTION X 2 DAYS HEENT Symptoms (Recalled from RN notes): Yes Resp Symptoms (Recalled from RN notes): No Skin Symptoms (Recalled from RN notes): No MS Symptoms (Recalled from RN notes): No Functional Status (Recalled from RN notes): WNL History of Present Illness Provider Complaint: Patient states that she has a sinus infection and thinks she caught pink eye from her child States that she has been having sinus pain and pressure for over a week and for the last couple of days she has been having matting, redness and drainage from both eyes so today she came in to get it checked Related Data Previous Rx's Medication Instructions Recorded aripiprazole 5 mg tablet (Abilify) 5 mg PO QHS #30 tabs 05/08/22 vilazodone 40 mg tablet (Viibryd) 40 mg PO DAILY #30 tabs 05/08/22 amoxicillin 875 mg-potassium 1 tab PO Q12H #14 tabs 05/22/22 clavulanate 125 mg tablet polymyxin B sulfate 10,000 2 drp ophthalmic (eye) Q6H 7 days 05/22/22 unit-trimethoprim 1 mg/mL eye #10 mL drops (Polytrim) Allergies Allergy/AdvReac Type Severity Reaction Status Date / Time acetaminophen Allergy Mild Hives Verified 05/08/22 13:20 [From Childrens Tylenol Plus MS Cold] chlorpheniramine Allergy Mild Hives Verified 05/08/22 13:20 [From Childrens Tylenol Plus MS Cold] dextromethorphan Allergy Mild Hives Verified 05/08/22 13:20 [From Childrens Tylenol Plus MS Cold] phenylephrine Allergy Mild Hives Verified 05/08/22 13:20 [From Childrens Tylenol Plus MS Cold] Worker's Comp Is this a Worker's Comp case?: No PFSH PFS Disclaimer: The information contained in this section may have been updated after the patient was seen, as this information can be updated by other users. Medical History Anxiety Depression Gestational diabetes Kidney stones Surgical History (Revie
[2022-05-22 13:01] VITALS: BP 114/79; PULSE 95; RESP 18; TEMP 36.9; O2SAT 98
== END 2022-05-22 13:02 | disposition home or self-care (01) ==
PROVIDERS: Emergency Provider Nurse Practitioner; PCP Physician Assistant
DX: J32.9 Chronic sinusitis, unspecified (principal); H10.9 Unspecified conjunctivitis
CPT/HCPCS: 99212; G0463

== ENCOUNTER 2022-08-12 09:24 | Emergency (ER) | payer BC, SELFPAY ==
[2022-08-12 09:30] VITALS: BP 125/76; PULSE 98; RESP 20; TEMP 36.9; O2SAT 95; BMI 30.2
--- NOTE | 2022-08-12 09:34 | EXP.UTC ---
Discharge Plan Disposition Patient Disposition: Home, Self-Care Condition: Good Prescriptions Prescriptions: New amoxicillin [amoxicillin] 875 mg tablet 875 mg PO Q12H Qty: 20 0RF benzonatate [benzonatate] 100 mg capsule 100 mg PO TIDP PRN (Reason: Cough) Qty: 30 0RF methylprednisolone 4 mg Tablets,Dose Pack 4 mg PO DIRECTED Qty: 21 0RF No Action aripiprazole [Abilify] 5 mg tablet 5 mg PO QHS vilazodone [Viibryd] 40 mg tablet 40 mg PO DAILY Rx Instructions: must administer with a meal/food Referrals Follow up/Referrals: Shayla Glez PA [Primary Care Provider] - See instructions Activity Restrictions/Add. Instructions Additional Instructions/Restrictions: Drink plenty of fluids. Take tylenol or ibuprofen for pain or fever. Take the medications as directed. Follow up with your regular doctor. GO TO THE ER FOR ANY WORSENING SYMPTOMS Clinical Impressions Clinical Impression: Pharyngitis, Sinusitis Instructions Patient Instructions: DI for Pharyngitis/Tonsillopharyngitis -- Adult, DI for Sinusitis Discharge ED Provider: Modesto Chong [facility] General Stated complaint: sore throat, congestion, cough Time Seen by Provider: 08/12/22 09:34 History of Present Illness Provider Complaint: She states that for the past 3 days she has had sore throat, low grade fever and a cough. Related Data Home Medications Medication Instructions Recorded Confirmed aripiprazole 5 mg tablet (Abilify) 5 mg PO QHS . 08/12/22 08/12/22 vilazodone 40 mg tablet (Viibryd) 40 mg PO DAILY . 08/12/22 08/12/22 Previous Rx's Medication Instructions Recorded amoxicillin 875 mg tablet 875 mg PO Q12H #20 tabs 08/12/22 benzonatate 100 mg capsule 100 mg PO TIDP PRN Cough #30 caps 08/12/22 methylprednisolone 4 mg tablets in 4 mg PO DIRECTED #21 tabs 08/12/22 a dose pack Allergies Allergy/AdvReac Type Severity Reaction Status Date / Time acetaminophen Allergy Mild Hives Verified 08/12/22 09:47 [From Childrens Tylenol Plus MS Cold] chlorpheniramine Allergy Mild Hives Verified 08/12/22 09:47 [From Childrens Tylenol Plus MS Cold] dextromethorphan Allergy Mild Hives Verified 08/12/22 09:47 [From Childrens Tylenol Plus MS Cold] phenylephrine Allergy Mild Hives Verified 08/12/22 09:47 [From Childrens Tylenol Plus MS Cold] [facility] Disclaimer: The information contained in this section may have been updated after the patient was seen, as this information can be updated by other users. Medical History Anxiety Depression Gestational diabetes Kidney stones Surgical History History of tubal ligation Social History Smoking Status: Never smoker alcohol intake: never substance use type: denies use current occupational status: employed and other Travel in the last 8 weeks: None number of children: 3 ROS Obtained: Yes All systems reviewed & no additional complaints except as documented Constitutional Constitutional: Reports chills and Reports fever(s) Eyes Eyes: Denies eye discharge ENT Ears, Nose, Mouth, and Throat: Reports as per HPI Cardiovascular Cardiovascular: Denies chest pain Respiratory Respiratory: Denies chest congestion and Reports cough Gastrointestinal Gastrointestingal: Reports nausea; Denies abdominal pain, constipation, cramping, diarrhea or vomiting Musculoskeletal Musculoskeletal: Denies arthralgias Integumentary/Breasts Skin/Breast: Denies rash Neurologic Neurologic: Denies paresthesias Physical Exam General General appearance: alert and in no apparent distress Head Head exam: atraumatic, normocephalic and normal inspection Eye Eye exam: Present normal appearance, PERRL and EOMI ENT ENT exam: Present mucous membranes moist a
[2022-08-12 09:46] LABS: UTC Strep Screen (Rapid) Negative (Negative)
[2022-08-12 10:40] VITALS: BP 125/76; PULSE 98; RESP 20; TEMP 36.9; O2SAT 95
== END 2022-08-12 10:39 | disposition home or self-care (01) ==
PROVIDERS: Emergency Provider Nurse Practitioner Family; PCP Physician Assistant
DX: J01.90 Acute sinusitis, unspecified (principal); J02.9 Acute pharyngitis, unspecified; R05.1 Acute cough
CPT/HCPCS: 87880; 99212; 99213; G0463

== ENCOUNTER 2022-08-29 11:21 | Emergency (ER) | payer BC, SELFPAY ==
[2022-08-29 11:22] VITALS: BP 112/64; PULSE 94; RESP 20; TEMP 36.6; O2SAT 97; BMI 33.0
--- NOTE | 2022-08-29 11:51 | EXP.UTC ---
Discharge Plan Disposition Patient Disposition: Home, Self-Care Condition: Good Prescriptions Prescriptions: New ciprofloxacin HCl 0.3 % drops See Rx Instructions .ROUTE .COMPLEX Qty: 5 0RF Rx Instructions: put 1 drp in both eyes every 2hr x2days; then 4 times/day x5days No Action aripiprazole [Abilify] 5 mg tablet 5 mg PO QHS Qty: 30 1RF vilazodone [Viibryd] 40 mg tablet 40 mg PO DAILY Qty: 30 1RF Rx Instructions: must administer with a meal/food Referrals Follow up/Referrals: Shayla Glez PA [Primary Care Provider] - See instructions Activity Restrictions/Add. Instructions Additional Instructions/Restrictions: Use the eye drops as directed. Strict hand washing in the house hold, because conjunctivitis is very contagious. Follow up with your regular doctor. GO TO THE ER FOR ANY WORSENING SYMPTOMS OR CONCERNS Clinical Impressions Clinical Impression: Conjunctivitis of left eye Instructions Patient Instructions: How to Instill Eye Drops, Conjunctivitis, DI for Conjunctivitis Discharge ED Provider: Modesto Chong [facility] General Stated complaint: possible pink eye Mode of Arrival: Ambulatory Source of Information: Patient Limitations: No Limitations Time Seen by Provider: 08/29/22 11:49 Description of Symptoms (Recalled from Triage Doc. by RN): pink eye bilateral HEENT Symptoms (Recalled from RN notes): Yes Resp Symptoms (Recalled from RN notes): No Skin Symptoms (Recalled from RN notes): No MS Symptoms (Recalled from RN notes): No Functional Status (Recalled from RN notes): n/a History of Present Illness Provider Complaint: She states that the she has had bilateral eye redness, discharge and matting for the past 2 days. Related Data Previous Rx's Medication Instructions Recorded aripiprazole 5 mg tablet (Abilify) 5 mg PO QHS . #30 tabs 08/21/22 vilazodone 40 mg tablet (Viibryd) 40 mg PO DAILY . #30 tabs 08/21/22 ciprofloxacin HCl 0.3 % eye drops See Rx Instructions ophthalmic 08/29/22 (eye) .COMPLEX #5 mL Allergies Allergy/AdvReac Type Severity Reaction Status Date / Time acetaminophen Allergy Mild Hives Verified 08/29/22 11:30 [From Childrens Tylenol Plus MS Cold] chlorpheniramine Allergy Mild Hives Verified 08/29/22 11:30 [From Childrens Tylenol Plus MS Cold] dextromethorphan Allergy Mild Hives Verified 08/29/22 11:30 [From Childrens Tylenol Plus MS Cold] phenylephrine Allergy Mild Hives Verified 08/29/22 11:30 [From Childrens Tylenol Plus MS Cold] Worker's Comp Is this a Worker's Comp case?: No [facility] Disclaimer: The information contained in this section may have been updated after the patient was seen, as this information can be updated by other users. Medical History Anxiety Depression Gestational diabetes Kidney stones Surgical History History of tubal ligation Social History Smoking Status: Never smoker alcohol intake: never substance use type: denies use current occupational status: employed and other Travel in the last 8 weeks: None number of children: 3 ROS Obtained: Yes All systems reviewed & no additional complaints except as documented Constitutional Constitutional: Denies chills and Denies fever(s) Eyes Eyes: Reports eye discharge ENT Ears, Nose, Mouth, and Throat: Denies dizziness, Denies otalgia and Denies sore throat Cardiovascular Cardiovascular: Denies chest pain Respiratory Respiratory: Denies shortness of breath, Denies chest congestion, Denies cough, Denies stridor and Denies wheezing Gastrointestinal Gastrointestingal: Denies nausea or vomiting Musculoskeletal Musculoskeletal: Reports system reviewed and no additional complaints, except as documented and Denies arthralgias Integumentary/Chante
[2022-08-29 12:21] VITALS: BP 112/64; PULSE 94; RESP 20; TEMP 36.6; O2SAT 97
== END 2022-08-29 12:21 | disposition home or self-care (01) ==
PROVIDERS: Emergency Provider Nurse Practitioner Family; PCP Physician Assistant
DX: H10.32 Unspecified acute conjunctivitis, left eye (principal)
CPT/HCPCS: 99212; 99214; G0463

== ENCOUNTER 2022-11-07 08:12 | Emergency (ER) | payer BC, SELFPAY ==
[2022-11-07 08:12] VITALS: BP 117/75; PULSE 95; RESP 18; TEMP 36.9; O2SAT 98; BMI 29.2
--- NOTE | 2022-11-07 08:21 | EXP.UTC ---
Discharge Plan Disposition Patient Disposition: Home, Self-Care Condition: Good Prescriptions Prescriptions: New phenazopyridine [Pyridium] 200 mg tablet 200 mg PO Q8H 2 Days Qty: 6 0RF nitrofurantoin monohyd/m-cryst [Macrobid] 100 mg Capsule 100 mg PO BID Qty: 10 0RF Rx Instructions: must administer with a meal/food No Action aripiprazole [Abilify] 10 mg tablet 10 mg PO QHS Qty: 30 1RF vilazodone [Viibryd] 40 mg tablet 40 mg PO DAILY Qty: 30 1RF Rx Instructions: must administer with a meal/food ciprofloxacin HCl 0.3 % drops See Rx Instructions .ROUTE .COMPLEX Qty: 5 0RF Rx Instructions: put 1 drp in both eyes every 2hr x2days; then 4 times/day x5days Referrals Follow up/Referrals: Shayla Glez PA [Primary Care Provider] - See instructions Activity Restrictions/Add. Instructions Additional Instructions/Restrictions: Drink plenty of fluids. Take tylenol or ibuprofen for pain or fever. Take the medications as directed. Follow up with your regular doctor. GO TO THE ER FOR ANY WORSENING SYMPTOMS The pyridium will make your urine turn orange, this is an expected side effect. It will stain your clothes if it comes into contact with them. We will culture the urine. That will tell what bacteria is causing your infection and which antibiotics will treat it best. Sometimes the first antibiotic we prescribe turns out to not work against different bacteria. So, make sure you follow up within 3 days if you are not getting better. Clinical Impressions Clinical Impression: UTI (urinary tract infection) Instructions Patient Instructions: Urine Culture, DI for Urinary Tract Infection (UTI) Discharge ED Provider: Modesto Chong [facility] General Stated complaint: Possible UTI Time Seen by Provider: 11/07/22 08:21 History of Present Illness Provider Complaint: She states that for the past 2 days she has had urinary frequency, dysuria, and low back pain. Related Data Previous Rx's Medication Instructions Recorded ciprofloxacin HCl 0.3 % eye drops See Rx Instructions ophthalmic 08/29/22 (eye) .COMPLEX #5 mL aripiprazole 10 mg tablet (Abilify) 10 mg PO QHS #30 tabs 10/23/22 vilazodone 40 mg tablet (Viibryd) 40 mg PO DAILY . #30 tabs 10/23/22 nitrofurantoin 100 mg PO BID #10 caps 11/07/22 monohydrate/macrocrystals 100 mg capsule (Macrobid) phenazopyridine 200 mg tablet 200 mg PO Q8H 2 days #6 tabs 11/07/22 (Pyridium) Allergies Allergy/AdvReac Type Severity Reaction Status Date / Time acetaminophen Allergy Mild Hives Verified 08/29/22 11:30 [From Childrens Tylenol Plus MS Cold] chlorpheniramine Allergy Mild Hives Verified 08/29/22 11:30 [From Childrens Tylenol Plus MS Cold] dextromethorphan Allergy Mild Hives Verified 08/29/22 11:30 [From Childrens Tylenol Plus MS Cold] phenylephrine Allergy Mild Hives Verified 08/29/22 11:30 [From Childrens Tylenol Plus MS Cold] [facility] Disclaimer: The information contained in this section may have been updated after the patient was seen, as this information can be updated by other users. Medical History Anxiety Depression Gestational diabetes Kidney stones Surgical History History of tubal ligation Social History Smoking Status: Never smoker alcohol intake: never substance use type: denies use current occupational status: employed and other Travel in the last 8 weeks: None number of children: 3 ROS Obtained: Yes All systems reviewed & no additional complaints except as documented Constitutional Constitutional: Reports system reviewed and no additional complaints, except as documented, Denies chills and Denies fever(s) Eyes Eyes: Denies eye discharge ENT Ears, Nose, Mouth,
[2022-11-07 08:27] LABS: Color,Urine Dark Yellow (Yellow)
[2022-11-07 08:28] LABS: Apearance,Urine Turbid (Clear); Bilirubin,Urine Negative (Negative); Blood, Urine Negative (Negative); Glucose,Urine (UA) Negative (Negative); Ketones,Urine Negative (Negative); PH,Urine 5.5 (5.0-8.5); Protein,Urine 3+ (Negative); UTC Leukocyte Esterase,Urine Negative (Negative); UTC Nitrate,Urine Negative (Negative); Urobilinogen,Urine 0.2 EU/dl (0.2)
[2022-11-07 09:01] VITALS: BP 117/75; PULSE 95; RESP 18; TEMP 36.9; O2SAT 98
== END 2022-11-07 09:02 | disposition home or self-care (01) ==
PROVIDERS: Emergency Provider Nurse Practitioner Family; PCP Physician Assistant
DX: N39.0 Urinary tract infection, site not specified (principal); M54.59 Other low back pain; F41.9 Anxiety disorder, unspecified; F33.9 Major depressive disorder, recurrent, unspecified
CPT/HCPCS: 81003; 87086; 99212; 99214; G0463

== ENCOUNTER 2023-03-08 16:24 | Emergency (ER) | payer BC, SELFPAY ==
[2023-03-08 16:24] VITALS: BP 109/75; PULSE 73; RESP 18; TEMP 36.7; O2SAT 97; BMI 29.9
--- NOTE | 2023-03-08 16:34 | EXP.UTC ---
Discharge Plan Disposition Patient Disposition: Home, Self-Care Condition: Good Prescriptions Prescriptions: New amoxicillin [amoxicillin] 500 mg tablet 500 mg PO TID 10 Days Qty: 30 0RF benzonatate [benzonatate] 100 mg capsule 100 mg PO TIDP PRN (Reason: Cough) Qty: 30 0RF methylprednisolone 4 mg Tablets,Dose Pack 4 mg PO DIRECTED Qty: 21 0RF No Action hydroxyzine pamoate [Vistaril] 25 mg capsule 25 mg PO TID PRN (Reason: for increased anxiety) Qty: 90 0RF aripiprazole [Abilify] 10 mg tablet 10 mg PO QHS Qty: 30 1RF vilazodone [Viibryd] 40 mg tablet 40 mg PO DAILY Qty: 30 1RF Rx Instructions: must administer with a meal/food Referrals Follow up/Referrals: Shayla Glez PA [Primary Care Provider] - See instructions Activity Restrictions/Add. Instructions Additional Instructions/Restrictions: Drink plenty of fluids. Take tylenol or ibuprofen for pain or fever. Take the medications as directed. Follow up with your regular doctor. GO TO THE ER FOR ANY WORSENING SYMPTOMS Clinical Impressions Clinical Impression: Sinusitis, Acute viral syndrome Stand Alone Forms Stand Alone Forms: Work/School Release Instructions Patient Instructions: DI for Sinusitis, DI for Viral Syndrome Discharge ED Provider: Modesto Chong [facility] HPI General Stated complaint: congestion, sore throat Time Seen by Provider: 03/08/23 16:33 History of Present Illness Provider Complaint: She states that for the past 3 days she has had sinus congestion, chills, sore throat and a cough. Related Data Previous Rx's Medication Instructions Recorded hydroxyzine pamoate 25 mg capsule 25 mg PO TID PRN for increased 12/12/22 (Vistaril) anxiety #90 caps aripiprazole 10 mg tablet (Abilify) 10 mg PO QHS #30 tabs 02/13/23 vilazodone 40 mg tablet (Viibryd) 40 mg PO DAILY . #30 tabs 02/13/23 amoxicillin 500 mg tablet 500 mg PO TID 10 days #30 tabs 03/08/23 benzonatate 100 mg capsule 100 mg PO TIDP PRN Cough #30 caps 03/08/23 methylprednisolone 4 mg tablets in 4 mg PO DIRECTED #21 tabs 03/08/23 a dose pack Allergies Allergy/AdvReac Type Severity Reaction Status Date / Time acetaminophen Allergy Mild Hives Verified 03/08/23 16:45 [From Childrens Tylenol Plus MS Cold] chlorpheniramine Allergy Mild Hives Verified 03/08/23 16:45 [From Childrens Tylenol Plus MS Cold] dextromethorphan Allergy Mild Hives Verified 03/08/23 16:45 [From Childrens Tylenol Plus MS Cold] phenylephrine Allergy Mild Hives Verified 03/08/23 16:45 [From Childrens Tylenol Plus MS Cold] [facility] Disclaimer: The information contained in this section may have been updated after the patient was seen, as this information can be updated by other users. Medical History Anxiety Depression Gestational diabetes Kidney stones Surgical History History of tubal ligation Social History Smoking Status: Never smoker alcohol intake: never substance use type: denies use current occupational status: employed and other Travel in the last 8 weeks: None number of children: 3 ROS Obtained: Yes All systems reviewed & no additional complaints except as documented Constitutional Constitutional: Reports poor appetite Eyes Eyes: Reports system reviewed and no additional complaints, except as documented ENT Ears, Nose, Mouth, and Throat: Reports as per HPI Cardiovascular Cardiovascular: Reports system reviewed and no additional complaints, except as documented and Denies chest pain Respiratory Respiratory: Denies shortness of breath, Denies chest congestion, Reports cough, Denies stridor and Denies wheezing Gastrointestinal Gastrointestingal: Reports system reviewed and no additional complaints, except as documented;
[2023-03-08 16:50] LABS: UTC Strep Screen (Rapid) Negative (Negative)
[2023-03-08 17:30] VITALS: BP 109/75; PULSE 73; RESP 18; TEMP 36.7; O2SAT 97
== END 2023-03-08 17:30 | disposition home or self-care (01) ==
PROVIDERS: Emergency Provider Nurse Practitioner Family; PCP Physician Assistant
DX: J01.90 Acute sinusitis, unspecified (principal); B34.9 Viral infection, unspecified; F41.9 Anxiety disorder, unspecified; F32.A Depression, unspecified
CPT/HCPCS: 87880; 99212; 99214; G0463

== ENCOUNTER 2023-04-05 08:23 | Emergency (ER) | payer BC, SELFPAY ==
[2023-04-05 08:30] VITALS: BP 104/68; PULSE 72; RESP 18; TEMP 36.9; O2SAT 98; BMI 30.4
--- NOTE | 2023-04-05 08:50 | EXP.UTC ---
Discharge Plan Disposition Patient Disposition: Home, Self-Care Condition: Good Prescriptions Prescriptions: New amoxicillin [amoxicillin] 875 mg tablet 875 mg PO Q12H Qty: 20 0RF methylprednisolone 4 mg Tablets,Dose Pack 4 mg PO DIRECTED Qty: 21 0RF pseudoephedrine HCl 30 mg tablet 30 mg PO Q6HP PRN (Reason: Congestion) Qty: 30 0RF No Action aripiprazole [Abilify] 10 mg tablet 10 mg PO QHS Qty: 30 1RF vilazodone [Viibryd] 40 mg tablet 40 mg PO DAILY Qty: 30 1RF Rx Instructions: must administer with a meal/food Referrals Follow up/Referrals: Shayla Glez PA [Primary Care Provider] - See instructions Activity Restrictions/Add. Instructions Additional Instructions/Restrictions: Drink plenty of fluids. Take tylenol or ibuprofen for pain or fever. Take the medications as directed. Follow up with your regular doctor. GO TO THE ER FOR ANY WORSENING SYMPTOMS Clinical Impressions Clinical Impression: Otitis media, Sinusitis Stand Alone Forms Stand Alone Forms: Work/School Release Instructions Patient Instructions: Middle Ear Infection, DI for Sinusitis Discharge ED Provider: Modesto Chong [facility] General Stated complaint: RT EAR HURTING Mode of Arrival: Ambulatory Source of Information: Patient Limitations: No Limitations Time Seen by Provider: 04/05/23 08:31 Description of Symptoms (Recalled from Triage Doc. by RN): bilateral ear pain HEENT Symptoms (Recalled from RN notes): Yes Resp Symptoms (Recalled from RN notes): No Skin Symptoms (Recalled from RN notes): No MS Symptoms (Recalled from RN notes): No Functional Status (Recalled from RN notes): n/a History of Present Illness Provider Complaint: She states that for the past 3 days she has had worsening ear pain and sinus congestion Related Data Previous Rx's Medication Instructions Recorded aripiprazole 10 mg tablet (Abilify) 10 mg PO QHS #30 tabs 02/13/23 vilazodone 40 mg tablet (Viibryd) 40 mg PO DAILY . #30 tabs 02/13/23 amoxicillin 875 mg tablet 875 mg PO Q12H #20 tabs 04/05/23 methylprednisolone 4 mg tablets in 4 mg PO DIRECTED #21 tabs 04/05/23 a dose pack pseudoephedrine HCl 30 mg tablet 30 mg PO Q6HP PRN Congestion #30 04/05/23 tabs Allergies Allergy/AdvReac Type Severity Reaction Status Date / Time acetaminophen Allergy Mild Hives Verified 04/05/23 08:44 [From Childrens Tylenol Plus MS Cold] chlorpheniramine Allergy Mild Hives Verified 04/05/23 08:44 [From Childrens Tylenol Plus MS Cold] dextromethorphan Allergy Mild Hives Verified 04/05/23 08:44 [From Childrens Tylenol Plus MS Cold] phenylephrine Allergy Mild Hives Verified 04/05/23 08:44 [From Childrens Tylenol Plus MS Cold] Worker's Comp Is this a Worker's Comp case?: No [facility] Disclaimer: The information contained in this section may have been updated after the patient was seen, as this information can be updated by other users. Medical History Anxiety Depression Gestational diabetes Kidney stones Surgical History History of tubal ligation Social History Smoking Status: Never smoker alcohol intake: never substance use type: denies use current occupational status: employed and other Travel in the last 8 weeks: None number of children: 3 ROS Obtained: Yes All systems reviewed & no additional complaints except as documented Constitutional Constitutional: Denies chills, Reports fever(s) and Reports poor appetite Eyes Eyes: Denies eye discharge ENT Ears, Nose, Mouth, and Throat: Denies ear discharge, Reports otalgia, Denies hearing loss, Denies sinus pain and Reports sore throat Cardiovascular Cardiovascular: Denies chest pain and Denies dyspnea Respiratory Respiratory: Denies chest conge
[2023-04-05 09:24] VITALS: BP 104/68; PULSE 72; RESP 18; TEMP 36.9; O2SAT 98
== END 2023-04-05 09:24 | disposition home or self-care (01) ==
PROVIDERS: Emergency Provider Nurse Practitioner Family; PCP Physician Assistant
DX: H66.93 Otitis media, unspecified, bilateral (principal); J01.90 Acute sinusitis, unspecified; F41.9 Anxiety disorder, unspecified; F32.A Depression, unspecified
CPT/HCPCS: 99212; 99214; G0463

== ENCOUNTER 2023-07-26 15:50 | Emergency (ER) | payer BC, SELFPAY ==
[2023-07-26 16:45] VITALS: BP 113/85; PULSE 78; RESP 21; TEMP 36.7; O2SAT 97; BMI 32.0
--- NOTE | 2023-07-26 16:51 | ED_ITS ---
Discharge Plan Disposition Patient Disposition: Home, Self-Care Condition: Good Prescriptions Prescriptions: New phenazopyridine [Pyridium] 200 mg tablet 200 mg PO Q8H 2 Days Qty: 6 0RF sulfamethoxazole-trimethoprim [Bactrim DS] 800-160 mg Tablet 1 tab PO BID Qty: 14 0RF ondansetron 4 mg Tablet,Disintegrating 4 mg PO Q8H PRN (Reason: Nausea) Qty: 12 0RF No Action Vraylar 1.5 mg capsule 1.5 mg PO DAILY Qty: 30 1RF vilazodone [Viibryd] 40 mg tablet 40 mg PO DAILY Rx Instructions: must administer with a meal/food Referrals Follow up/Referrals: Shayla Glez PA [Primary Care Provider] - See instructions Activity Restrictions/Add. Instructions Additional Instructions/Restrictions: Drink plenty of fluids. Take tylenol or ibuprofen for pain or fever. Take the medications as directed. Follow up with your regular doctor. GO TO THE ER FOR ANY WORSENING SYMPTOMS The pyridium will make your urine turn orange, this is an expected side effect. It will stain your clothes if it comes into contact with them. We will culture the urine. That will tell what bacteria is causing your infection and which antibiotics will treat it best. Sometimes the first antibiot ic we prescribe turns out to not work against different bacteria. So, make sure you follow up within 3 days if you are not getting better. Clinical Impressions Clinical Impression: UTI (urinary tract infection) Instructions Patient Instructions: Urinary Tract Infection, Urine Culture, DI for Urinary Tract Infection (UTI), Phenazopyridine Discharge ED Provider: Modesto Chong [facility] General Stated complaint: possible uti Time Seen by Provider: 07/26/23 16:51 History of Present Illness Provider Complaint: She states that for the past 2 days she has had low back pain, dysuria, and urinary frequency. Related Data Home Medications Medication Instructions Recorded Confirmed vilazodone 40 mg tablet (Viibryd) 40 mg PO DAILY 07/26/23 07/26/23 Previous Rx's Medication Instructions Recorded cariprazine 1.5 mg capsule 1.5 mg PO DAILY #30 caps 07/10/23 (Vraylar) ondansetron 4 mg disintegrating 4 mg PO Q8H PRN Nausea #12 tabs 07/26/23 tablet phenazopyridine 200 mg tablet 200 mg PO Q8H 2 days #6 tabs 07/26/23 (Pyridium) sulfamethoxazole 800 1 tab PO BID #14 tabs 07/26/23 mg-trimethoprim 160 mg tablet (Bactrim DS) Allergies Allergy/AdvReac Type Severity Reaction Status Date / Time acetaminophen Allergy Mild Hives Verified 04/05/23 08:44 [From Childrens Tylenol Plus MS Cold] chlorpheniramine Allergy Mild Hives Verified 04/05/23 08:44 [From Childrens Tylenol Plus MS Cold] dextromethorphan Allergy Mild Hives Verified 04/05/23 08:44 [From Childrens Tylenol Plus MS Cold] phenylephrine Allergy Mild Hives Verified 04/05/23 08:44 [From Childrens Tylenol Plus MS Cold] [facility] Disclaimer: The information contained in this section may have been updated after the patient was seen, as this information can be updated by other users. Medical History Anxiety Depression Gestational diabetes Kidney stones Surgical History History of tubal ligation Social History Smoking Status: Never smoker alcohol intake: never substance use type: denies use current occupational status: employed and other Travel in the last 8 weeks: None number of children: 3 ROS Obtained: Yes All systems reviewed & no additional complaints except as documented Constitutional Constitutional: Reports system reviewed and no additional complaints, except as documented, Denies chills and Denies fever(s) Eyes Eyes: Denies eye discharge ENT Ears, Nose, Mouth, and Throat: Denies dysphagia, Denies sore throat and Denies throat swelling Cardiovascular Cardiovascular: Denies chest pain and Denies dyspnea Respiratory Respiratory: Denies chest congestion, Denies cough and Denies dyspnea Gastrointestinal Gastrointestingal: Denies abdominal pain, constipation, diarrhea, dysphagia, nausea or vomiting Genitourinary Female Genitourinary: Reports as per HPI, Reports dysuria, Reports urinary frequency, Denies urinary incontinence, Reports urinary hesitancy and Reports urinary urgency Musculoskeletal Musculoskeletal: Denies arthralgias and Reports back pain Integumentary/Breasts Skin/Breast: Denies rash Neurologic Neurologic: Denies paresthesias Allergic/Immunologic Allergic/Immunologic: Denies throat swelling Physical Exam General General appearance: alert and in no apparent distress Head Head exam: atraumatic and normocephalic Eye Eye exam: Present normal appearance, PERRL and EOMI ENT ENT exam: Present normal exam, mucous membranes moist, TM's normal bilaterally and normal external ear exam Neck Neck exam: Present normal inspection, full ROM and trachea midline; Absent tenderness, meningismus or lymphadenopathy Chest Chest inspection: Present normal inspection and symmetric chest wall rise; Absent tenderness Respiratory Respiratory exam: Present normal lung sounds bilaterally; Absent respiratory distress, wheezes or stridor Cardiovascular Cardiovascular exam: Present regular rate, normal rhythm and normal heart sounds Abdominal Exam Abdominal exam: Present soft and normal bowel sounds; Absent distention, tenderness, guarding, rebound, rigidity, incision, psoas sign, obturator sign, heel tap sign, Villa's sign, Rovsing's sign or tenderness at McBurney's Point Extremities Exam Extremities exam: Present normal inspection, full ROM and normal capillary refill; Absent tenderness, edema, joint swelling, calf tenderness or cyanosis Back Exam Back exam: Present normal inspection and full ROM; Absent tenderness, CVA tenderness (R) or CVA tenderness (L) Neurological Exam Neurological exam: Present alert, oriented X3 and normal gait Psychiatric Psychiatric exam: Present normal affect and normal mood Skin Skin exam: Present warm, dry, intact and normal color Lymphatic Lymphatic Findings: no adenopathy Medical Decision Making Medical Records Medical records reviewed: No I reviewed the patient's medical records. Rhett Inquiry Pt receiving controlled substance: No Lab Data Lab results reviewed: Yes I reviewed the patient's lab results.
[2023-07-26 16:57] LABS: Apearance,Urine Clear (Clear); Bilirubin,Urine Negative (Negative); Blood, Urine 3+ (Negative); Color,Urine Yellow (Yellow); Glucose,Urine (UA) Negative (Negative); Ketones,Urine Negative (Negative); PH,Urine 5.5 (5.0-8.5); Protein,Urine Negative (Negative); UTC Leukocyte Esterase,Urine Negative (Negative); UTC Nitrate,Urine Negative (Negative); Urobilinogen,Urine 0.2 EU/dl (0.2)
[2023-07-26 17:11] VITALS: BP 113/85; PULSE 78; RESP 21; TEMP 36.7; O2SAT 97
== END 2023-07-26 17:16 | disposition home or self-care (01) ==
PROVIDERS: Emergency Provider Nurse Practitioner Family; PCP Physician Assistant
DX: N39.0 Urinary tract infection, site not specified (principal); M54.59 Other low back pain
CPT/HCPCS: 81003; 87086; 99212; 99214; G0463

== ENCOUNTER 2023-08-24 15:31 | Emergency (ER) | payer BC, SELFPAY ==
[2023-08-24 15:35] VITALS: BP 137/73; PULSE 92; RESP 18; TEMP 36.9; O2SAT 97; BMI 30.5
--- NOTE | 2023-08-24 15:46 | EXP.UTC ---
Discharge Plan Disposition Patient Disposition: Home, Self-Care Condition: Good Prescriptions Prescriptions: New amoxicillin-pot clavulanate [Augmentin] 500-125 mg tablet 1 tab PO Q12H Qty: 20 0RF methylprednisolone [Medrol (Lucas)] 4 mg tablets,dose pack See Rx Instructions .ROUTE .COMPLEX 6 Days Qty: 21 0RF Rx Instructions: 4 mg orally ;Medrol dose taper lucas No Action vilazodone [Viibryd] 40 mg tablet 40 mg PO DAILY Rx Instructions: must administer with a meal/food Referrals Follow up/Referrals: Shayla Glez PA [Primary Care Provider] - See instructions Clinical Impressions Clinical Impression: Acute maxillary sinusitis Qualifiers: Recurrence: not specified as recurrent Qualified Code(s): J01.00 - Acute maxillary sinusitis, unspecified Instructions Patient Instructions: DI for Sinusitis, DI for Dental Pain Discharge ED Provider: Allison Liu [facility] General Stated complaint: dental pain Mode of Arrival: Ambulatory Source of Information: Patient Limitations: No Limitations Time Seen by Provider: 08/24/23 15:45 Description of Symptoms (Recalled from Triage Doc. by RN): Pt's symptoms are sinus infection with tooth ache. HEENT Symptoms (Recalled from RN notes): Yes Resp Symptoms (Recalled from RN notes): No Skin Symptoms (Recalled from RN notes): No MS Symptoms (Recalled from RN notes): No Functional Status (Recalled from RN notes): n/a History of Present Illness Provider Complaint: Pt reports that for the last week she has had sinus pressure/pain and upper right side tooth pain. She reports that she has been taking Tylenol/Motrin around the clock to assist with the pain. Related Data Home Medications Medication Instructions Recorded Confirmed vilazodone 40 mg tablet (Viibryd) 40 mg PO DAILY 07/26/23 08/24/23 Previous Rx's Medication Instructions Recorded amoxicillin 500 mg-potassium 1 tab PO Q12H #20 tabs 08/24/23 clavulanate 125 mg tablet (Augmentin) methylprednisolone 4 mg tablets in See Rx Instructions .Route 08/24/23 a dose pack (Medrol (Lucas)) .COMPLEX 6 days #21 tabs Allergies Allergy/AdvReac Type Severity Reaction Status Date / Time acetaminophen Allergy Mild Hives Verified 08/24/23 15:43 [From Childrens Tylenol Plus MS Cold] chlorpheniramine Allergy Mild Hives Verified 08/24/23 15:43 [From Childrens Tylenol Plus MS Cold] dextromethorphan Allergy Mild Hives Verified 08/24/23 15:43 [From Childrens Tylenol Plus MS Cold] phenylephrine Allergy Mild Hives Verified 08/24/23 15:43 [From Childrens Tylenol Plus MS Cold] Worker's Comp Is this a Worker's Comp case?: No [facility] Disclaimer: The information contained in this section may have been updated after the patient was seen, as this information can be updated by other users. Medical History Anxiety Depression Gestational diabetes Kidney stones Surgical History History of tubal ligation Social History Smoking Status: Never smoker alcohol intake: never substance use type: denies use current occupational status: employed and other Travel in the last 8 weeks: None number of children: 3 ROS Obtained: Yes All systems reviewed & no additional complaints except as documented Constitutional Constitutional: Reports system reviewed and no additional complaints, except as documented and Reports headache(s) Eyes Eyes: Reports system reviewed and no additional complaints, except as documented ENT Ears, Nose, Mouth, and Throat: Reports system reviewed and no additional complaints, except as documented, Reports dental pain, Reports facial pain, Reports headache(s), Reports nasal congestion, Reports nasal discharge, Reports sinus pain and Reports sinus pressure Cardiovascular Cardiovascular: Reports system reviewed and no additional complaints, except as documented Respiratory Respiratory: Reports system reviewed and no additional complaints, except as documented Gastrointestinal Gastrointestingal: Reports system reviewed and no additional complaints, except as documented Genitourinary Female Genitourinary: Reports system reviewed and no additional complaints, except as documented Musculoskeletal Musculoskeletal: Reports system reviewed and no additional complaints, except as documented Integumentary/Breasts Skin/Breast: Reports system reviewed and no additional complaints, except as documented Neurologic Neurologic: Reports system reviewed and no additional complaints, except as documented and Reports headache(s) Endocrine Endocrine: Reports system reviewed and no additional complaints, except as documented Hematologic/Lymphatic Henatologic/Lymphatic: Reports system reviewed and no additional complaints, except as documented Allergic/Immunologic Allergic/Immunologic: Reports system reviewed and no additional complaints, except as documented Physical Exam General General appearance: alert Comment: appears to be in pain Head Head exam: atraumatic and normocephalic Eye Eye exam: Present normal appearance Expanded ENT Exam External ear exam: Present normal external inspection Nose exam: Present sinus tenderness Nasal speculum exam: Bilateral: purulent discharge Mouth exam: Present normal external inspection Teeth exam: Present dental caries and dental tenderness # (2) Throat exam: Present normal inspection Neck Neck exam: Present normal inspection; Absent lymphadenopathy Chest Chest inspection: Present normal inspection and symmetric chest wall rise Respiratory Respiratory exam: Present normal lung sounds bilaterally Cardiovascular Cardiovascular exam: Present regular rate and normal rhythm Abdominal Exam Abdominal exam: Present soft Extremities Exam Extremities exam: Present normal inspection Back Exam Back exam: Present normal inspection Neurological Exam Neurological exam: Present alert and oriented X3 Psychiatric Psychiatric exam: Present normal affect and normal mood Skin Skin exam: Present warm, dry and intact Lymphatic Lymphatic Findings: no adenopathy Medical Decision Making Rhett Inquiry Pt receiving controlled substance: No Rhett was queried for this patient: No Vital Signs: 08/24/23 15:35 Temperature 98.5 F Temperature Source Oral Pulse Rate [Right Radial] 92 H Respiratory Rate 18 Blood Pressure [Right Arm] 137/73 Blood Pressure Mean [Right Arm] 94 Blood Pressure Source [Right Arm] Automatic Cuff Blood Pressure Position [Right Arm] Sitting 02 Sat by Pulse Oximetry 97 Oxygen Delivery Method Room Air
[2023-08-24 16:04] VITALS: BP 137/73; PULSE 92; RESP 18; TEMP 36.9; O2SAT 97
== END 2023-08-24 16:04 | disposition home or self-care (01) ==
PROVIDERS: Emergency Provider Nurse Practitioner Family; PCP Physician Assistant
DX: J01.00 Acute maxillary sinusitis, unspecified (principal); R51.9 Headache, unspecified; R09.81 Nasal congestion
CPT/HCPCS: 99212; 99214; G0463

== ENCOUNTER 2023-10-23 11:23 | Outpatient (CLI) | payer BC, SELFPAY ==
[2023-10-23 19:46] LABS: Basophils % 0.5 % (0.1-2.0); Eosinophils # 0.1 K/mm3 (0.0-0.4); Eosinophils % 0.9 % (0.1-12.0); Hematocrit 44.2 % (37.0-47.0); Hemoglobin 14.4 g/dL (12.2-16.2); Lymphocytes # 2.7 K/mm3 (0.7-4.5); Lymphocytes % 30.6 % (10-50); Mean Corpuscular HGB Conc 32.6 g/dL (31.8-35.4); Mean Corpuscular Hemoglobin 31.2 pg (27.0-31.2); Mean Corpuscular Volume 95.5 fl (81-99); Mean Platelet Volume 9.5 fl (7.4-10.4); Monocytes # 0.4 K/mm3 (0.1-1.0); Monocytes % 4.9 % (1.7-9.3); Neutrophils # 5.6 K/mm3 (1.8-7.8); Neutrophils % 63.2 % (37.0-80.0); Platelet Count 309 K/mm3 (142-424); Red Blood Count 4.62 M/mm3 (4.20-5.40); Red Cell Distribution Width 13.6 % (11.5-17.5); White Blood Count 8.8 K/mm3 (4.8-10.8)
[2023-10-23 20:07] LABS: Alanine Aminotransferase 20 U/L (12-78); Albumin Level 4.5 g/dl (3.5-5.0); Albumin/Globulin Ratio 1.6 (1.1-1.8); Alkaline Phosphatase 94 U/L (38-126); Aspartate Amino Transferase 27 U/L (14-36); Bilirubin,Total 1.2 mg/dl (0.2-1.3); Calcium 9.1 mg/dl (8.4-10.2); Chloride 104 mmol/L (98-107); Chol/HDL Ratio 3.3 (1-3.5); Cholesterol 246 mg/dl (140-200); Globulin 2.8 g/dL (1.3-3.2); Glucose 94 mg/dl (74-100); HDL Cholesterol 75 mg/dl (40-60); Potassium 3.9 mmoL/L (3.5-5.1); Sodium 140 mmol/L (136-145); Total Protein,Serum 7.3 g/dl (6.3-8.2); Triglycerides 351 mg/dl (30-150); VLDL Cholesterol 70 mg/dL (0-40)
[2023-10-23 20:22] LABS: Direct LDL Cholesterol 130.36 mg/dL (100-129)
[2023-10-23 20:43] LABS: Hemoglobin A1C 5.3 % (4.0-6.0)
[2023-10-23 20:44] LABS: Anion Gap 15.9 mEq/L (5-15); Blood Urea Nitrogen 13 mg/dl (7-17); Carbon Dioxide 24 mmol/L (22.0-30.0); Estimated Glomerular Filt Rate 95 ml/min (>60); GFR (African American) 115 ML/MIN (>60)
[2023-10-23 20:52] LABS: 25-OH Vitamin D, Total 22.9 ng/mL (30-100)
[2023-10-23 21:16] LABS: Thyroid Stimulating Hormone 0.56 uIU/mL (0.465-4.68)
== END 2023-10-23 23:59 | disposition home or self-care (01) ==
LOC: LAB.DROPOF 10-24 11:24
PROVIDERS: PCP Nurse Practitioner Family; Visit Provider Nurse Practitioner Family
DX: Z00.00 Encounter for general adult medical examination without abnormal findings (principal); R40.0 Somnolence; R06.83 Snoring; F33.1 Major depressive disorder, recurrent, moderate; E78.00 Pure hypercholesterolemia, unspecified; E55.9 Vitamin D deficiency, unspecified; E66.9 Obesity, unspecified; Z68.30 Body mass index [BMI] 30.0-30.9, adult; Z79.899 Other long term (current) drug therapy
CPT/HCPCS: 80053; 80061; 82306; 83036; 84443; 85025

== ENCOUNTER → 2023-11-27 10:14 | Outpatient (CLI) | payer BC, SELFPAY | LOC: SL 10:16 | PROVIDERS: PCP Nurse Practitioner Family; Visit Provider Nurse Practitioner Family | DX: G47.33 Obstructive sleep apnea (adult) (pediatric) (principal); G47.36 Sleep related hypoventilation in conditions classified elsewhere | CPT/HCPCS: G0399 ==

== ENCOUNTER 2024-01-21 16:43 | Emergency (ER) | payer BC, SELFPAY ==
[2024-01-21 17:30] VITALS: BP 119/80; PULSE 90; RESP 18; TEMP 36.6; O2SAT 98; BMI 31.1
--- NOTE | 2024-01-21 17:32 | ED_ITS ---
Discharge Plan Disposition Patient Disposition: Home, Self-Care Condition: Good Prescriptions Prescriptions: New phenazopyridine [Pyridium] 200 mg tablet 200 mg PO Q8H 2 Days Qty: 6 0RF nitrofurantoin monohyd/m-cryst [Macrobid] 100 mg Capsule 100 mg PO BID Qty: 10 0RF Rx Instructions: must administer with a meal/food No Action vilazodone [Viibryd] 40 mg tablet 40 mg PO DAILY Qty: 30 1RF Rx Instructions: must administer with a meal/food ergocalciferol (vitamin D2) 1,250 mcg (50,000 unit) capsule 1,250 mcg PO WEEKLY Qty: 9 3RF ergocalciferol (vitamin D2) 50 mcg (2,000 unit) capsule 50 mcg PO DAILY Qty: 30 4RF Rexulti 1 mg tablet See Rx Instructions .ROUTE .COMPLEX Qty: 30 0RF Dose Instruction: Take 1 tablet by mouth once daily Rx Instructions: Take 1 tablet by mouth once daily Referrals Follow up/Referrals: Buddy Santos APRN [Primary Care Provider] - See instructions Activity Restrictions/Add. Instructions Additional Instructions/Restrictions: Drink plenty of fluids. Take tylenol or ibuprofen for pain or fever. Take the medications as directed. Follow up with your regular doctor. GO TO THE ER FOR ANY WORSENING SYMPTOMS The pyridium will make your urine turn orange, this is an expected side effect. It will stain your clothes if it comes into contact with them. We will culture the urine. That will tell what bacteria is causing your infection and which antibiotics will treat it best. Sometimes the first antibiotic we prescribe turns out to not work against different bacteria. So, make sure you follow up within 3 days if you are not getting better. Clinical Impressions Clinical Impression: UTI (urinary tract infection) Instructions Patient Instructions: Urine Culture, DI for Urinary Tract Infection (UTI), Phenazopyridine Print Language Print Language: Tamazight Discharge ED Provider: Modesto Chong [facility] [place] General Stated complaint: Lower back pain,Burning,frequency with urination Time Seen by Provider: 01/21/24 17:32 Related Data Previous Rx's ?Medication ?Instructions ?Recorded vilazodone 40 mg tablet (Viibryd) 40 mg PO DAILY #30 tabs 10/23/23 ergocalciferol (vitamin D2) 1,250 1,250 mcg PO WEEKLY #9 caps 10/29/23 mcg (50,000 unit) capsule ergocalciferol (vitamin D2) 50 mcg 50 mcg PO DAILY #30 caps 10/29/23 (2,000 unit) capsule brexpiprazole 1 mg tablet (Rexulti) See Rx Instructions .Route 12/25/23 .COMPLEX #30 tabs nitrofurantoin 100 mg PO BID #10 caps 01/21/24 monohydrate/macrocrystals 100 mg capsule (Macrobid) phenazopyridine 200 mg tablet 200 mg PO Q8H 2 days #6 tabs 01/21/24 (Pyridium) Allergies Allergy/AdvReac Type Severity Reaction Status Date / Time acetaminophen Allergy Mild Hives Verified 10/23/23 13:09 [From Childrens Tylenol Plus MS Cold] chlorpheniramine Allergy Mild Hives Verified 10/23/23 13:09 [From Childrens Tylenol Plus MS Cold] dextromethorphan Allergy Mild Hives Verified 10/23/23 13:09 [From Childrens Tylenol Plus MS Cold] phenylephrine Allergy Mild Hives Verified 10/23/23 13:09 [From Childrens Tylenol Plus MS Cold] [facility] Disclaimer: The information contained in this section may have been updated after the patient was seen, as this information can be updated by other users. Medical History (Updated 01/21/24 @ 18:12 by Modesto Chong APRN) Gestational diabetes Kidney stones Surgical History History of tubal ligation Social History Smoking Status: Never smoker alcohol intake: never substance use type: denies use current occupational status: employed and other Travel in the last 8 weeks: None number of children: 3 ROS Obtained: Yes All systems reviewed & no additional complaints except as documented Constitutional Constitutional: Reports system reviewed and no additional complaints, except as documented, Denies chills and Denies fever(s) Eyes Eyes: Denies eye discharge ENT Ears, Nose, Mouth, and Throat: Denies dysphagia, Denies sore throat and Denies throat swelling Cardiovascular Cardiovascular: Denies chest pain and Denies dyspnea Respiratory Respiratory: Denies chest congestion, Denies cough and Denies dyspnea Gastrointestinal Gastrointestingal: Denies abdominal pain, constipation, diarrhea, dysphagia, nausea or vomiting Genitourinary Female Genitourinary: Reports as per HPI, Reports dysuria, Reports urinary frequency, Denies urinary incontinence, Reports urinary hesitancy and Reports urinary urgency Musculoskeletal Musculoskeletal: Denies arthralgias and Reports back pain Integumentary/Breasts Skin/Breast: Denies rash Neurologic Neurologic: Denies paresthesias Allergic/Immunologic Allergic/Immunologic: Denies throat swelling Physical Exam General General appearance: alert and in no apparent distress Head Head exam: atraumatic and normocephalic Eye Eye exam: Present normal appearance, PERRL and EOMI ENT ENT exam: Present normal exam, mucous membranes moist, TM's normal bilaterally and normal external ear exam Neck Neck exam: Present normal inspection, full ROM and trachea midline; Absent tenderness, meningismus or lymphadenopathy Chest Chest inspection: Present normal inspection and symmetric chest wall rise; Absent tenderness Respiratory Respiratory exam: Present normal lung sounds bilaterally; Absent respiratory distress, wheezes or stridor Cardiovascular Cardiovascular exam: Present regular rate, normal rhythm and normal heart sounds Abdominal Exam Abdominal exam: Present soft and normal bowel sounds; Absent distention, tenderness, guarding, rebound, rigidity, incision, psoas sign, obturator sign, heel tap sign, Villa's sign, Rovsing's sign or tenderness at McBurney's Point Extremities Exam Extremities exam: Present normal inspection, full ROM and normal capillary refill; Absent tenderness, edema, joint swelling, calf tenderness or cyanosis Back Exam Back exam: Present normal inspection and full ROM; Absent tenderness, CVA tenderness (R) or CVA tenderness (L) Neurological Exam Neurological exam: Present alert, oriented X3 and normal gait Psychiatric Psychiatric exam: Present normal affect and normal mood Skin Skin exam: Present warm, dry, intact and normal color Lymphatic Lymphatic Findings: no adenopathy Medical Decision Making Medical Records Medical records reviewed: No I reviewed the patient's medical records. Rhett Inquiry Pt receiving controlled substance: No Lab Data Lab results reviewed: Yes I reviewed the patient's lab results.
[2024-01-21 17:40] LABS: Apearance,Urine Clear (Clear); Bilirubin,Urine Negative (Negative); Blood, Urine Negative (Negative); Color,Urine Yellow (Yellow); Glucose,Urine (UA) Negative (Negative); Ketones,Urine TRACE (Negative); PH,Urine 5.5 (5.0-8.5); Protein,Urine Negative (Negative)
[2024-01-21 17:41] LABS: UTC Leukocyte Esterase,Urine Negative (Negative); UTC Nitrate,Urine Negative (Negative); Urobilinogen,Urine 0.2 EU/dl (0.2)
[2024-01-21 18:12] VITALS: BP 119/80; PULSE 90; RESP 18; TEMP 36.6; O2SAT 98
== END 2024-01-21 18:15 | disposition home or self-care (01) ==
PROVIDERS: Emergency Provider Nurse Practitioner Family; PCP Nurse Practitioner Family
DX: N39.0 Urinary tract infection, site not specified (principal); B96.89 Other specified bacterial agents as the cause of diseases classified elsewhere; M54.59 Other low back pain; R30.0 Dysuria; R35.0 Frequency of micturition
CPT/HCPCS: 81003; 87086; 99212; 99214; G0463

== ENCOUNTER 2024-05-13 17:28 | Emergency (ER) | payer BC, SELFPAY ==
[2024-05-13 18:10] VITALS: BP 131/79; PULSE 79; RESP 20; TEMP 36.7; O2SAT 98; BMI 34.0
--- NOTE | 2024-05-13 18:23 | ED_ITS ---
Discharge Plan Disposition Patient Disposition: Home, Self-Care Condition: Good Prescriptions Prescriptions: New amoxicillin-pot clavulanate 875-125 mg Tablet 1 tab PO Q12H 7 Days Qty: 14 0RF fluticasone propionate [Flonase Allergy Relief] 50 mcg/actuation spray,suspension 2 spray intranasal DAILY Qty: 16 0RF Rx Instructions: administer into each nostril daily ofloxacin 0.3 % drops 10 drp otic (ear) BID 14 Days Qty: 20 0RF Rx Instructions: right ear as directed No Action vilazodone [Viibryd] 40 mg tablet 40 mg PO DAILY Qty: 30 1RF Rx Instructions: must administer with a meal/food Referrals Follow up/Referrals: Buddy Santos APRN [Primary Care Provider] - See instructions Activity Restrictions/Add. Instructions Additional Instructions/Restrictions: Take probiotic with medication to help prevent stomach upset Use ear drops as prescribed Follow up with Dentist if pain persists Clinical Impressions Clinical Impression: Sinusitis Instructions Patient Instructions: DI for Sinusitis, Sinusitis Print Language Print Language: Nepali Discharge ED Provider: Ruma Tony [facility] General Stated complaint: Rt ear pain Mode of Arrival: Ambulatory Source of Information: Patient Limitations: No Limitations Time Seen by Provider: 05/13/24 18:23 Description of Symptoms (Recalled from Triage Doc. by RN): PATIENT C/O RIGHT EAR PAIN AND PRESSURE UNDER RIGHT EYE. SHE STATES SHE WAS GIVEN AMOXICILLIN AND A STEROID ON 04/30 FOR HER EARS, BUT STATES THEY ARE NOT BETTER HEENT Symptoms (Recalled from RN notes): Yes Resp Symptoms (Recalled from RN notes): No Skin Symptoms (Recalled from RN notes): No MS Symptoms (Recalled from RN notes): No Functional Status (Recalled from RN notes): WNL History of Present Illness Provider Complaint: Patient states that she has been having pain and pressure in her right ear and right sinus area States that she wasnt sure if it was her ear sinuses or she may have an infection from recent dental work States that she is having pain and pressure on that right side Related Data Previous Rx's ?Medication ?Instructions ?Recorded vilazodone 40 mg tablet (Viibryd) 40 mg PO DAILY #30 tabs 02/27/24 amoxicillin 875 mg-potassium 1 tab PO Q12H 7 days #14 tabs 05/13/24 clavulanate 125 mg tablet fluticasone propionate 50 2 spray intranasal DAILY #16 grams 05/13/24 mcg/actuation nasal spray,suspension (Flonase Allergy Relief) ofloxacin 0.3 % ear drops 10 drp otic (ear) BID 14 days #20 05/13/24 mL Allergies Allergy/AdvReac Type Severity Reaction Status Date / Time acetaminophen (From Allergy Mild Hives Verified 05/12/24 16:53 Childrens Tylenol Plus MS Cold) chlorpheniramine (From Allergy Mild Hives Verified 05/12/24 16:53 Childrens Tylenol Plus MS Cold) dextromethorphan (From Allergy Mild Hives Verified 05/12/24 16:53 Childrens Tylenol Plus MS Cold) lumateperone (From Caplyta) Allergy Mild Dizziness Verified 05/12/24 16:53 phenylephrine (From Allergy Mild Hives Verified 05/12/24 16:53 Childrens Tylenol Plus MS Cold) Worker's Comp Is this a Worker's Comp case?: No [facility] Disclaimer: The information contained in this section may have been updated after the patient was seen, as this information can be updated by other users. Medical History Gestational diabetes Kidney stones Surgical History History of tubal ligation Family History Other Asthma Cancer Coronary artery disease Diabetes Heart attack Hyperlipidemia Hypertension Stroke Thyroid disorder Social History Smoking Status: Never smoker alcohol intake: never substance use type: denies use current occupational status: employed and other Travel in the last 8 weeks: None number of children: 3 ROS Obtained: Yes All systems reviewed & no additional complaints except as documented and Yes Systems reviewed as appropriate & no additional complaints except as documented Constitutional Constitutional: Reports system reviewed and no additional complaints, except as documented and Reports as per HPI ENT Ears, Nose, Mouth, and Throat: Reports system reviewed and no additional complaints, except as documented, Reports as per HPI, Reports dental pain, Reports otalgia and Reports sinus pressure Cardiovascular Cardiovascular: Reports system reviewed and no additional complaints, except as documented and Reports as per HPI Respiratory Respiratory: Reports system reviewed and no additional complaints, except as documented and Reports as per HPI Gastrointestinal Gastrointestingal: Reports system reviewed and no additional complaints, except as documented and as per HPI Physical Exam General General appearance: alert and in no apparent distress ENT ENT exam: Present mucous membranes moist Expanded ENT Exam TM/Canal exam: Bilateral TM: bulging Nose exam: Present sinus tenderness Teeth exam: Present gingival swelling (mild right upper gumline where she had Bridge placed last week) Respiratory Respiratory exam: Present normal lung sounds bilaterally; Absent respiratory distress or wheezes Cardiovascular Cardiovascular exam: Present regular rate, normal rhythm and normal heart sounds Neurological Exam Neurological exam: Present alert, oriented X3 and normal gait Medical Decision Making Medical Records Screening: Per USPSTF and CDC recommendations, given the prevalence of disease in our region, it is our hospital?s policy to screen for HIV and viral Hepatitis for all patients aged 18 and over and those with ongoing risk factors. Rhett Inquiry Pt receiving controlled substance: No Rhett was queried for this patient: No Vital Signs: 05/13/24 18:10 Temperature 98.1 F Temperature Source Oral Pulse Rate [Left Brachial] 79 Respiratory Rate 20 Blood Pressure [Left Arm] 131/79 Blood Pressure Mean [Left Arm] 96 Blood Pressure Source [Left Arm] Automatic Cuff Blood Pressure Position [Left Arm] Sitting 02 Sat by Pulse Oximetry 98 Oxygen Delivery Method Room Air
[2024-05-13 18:40] VITALS: BP 131/79; PULSE 79; RESP 20; TEMP 36.7; O2SAT 98
== END 2024-05-13 18:44 | disposition home or self-care (01) ==
PROVIDERS: Emergency Provider Nurse Practitioner; PCP Nurse Practitioner Family
DX: J32.9 Chronic sinusitis, unspecified (principal); H92.01 Otalgia, right ear
CPT/HCPCS: 99212; G0381

== ENCOUNTER 2024-06-15 13:59 | Outpatient (CLI) | payer BC, SELFPAY | END 2024-06-15 23:59 | disposition home or self-care (01) | LOC: LAB.DROPOF 14:00 | PROVIDERS: PCP Family Medicine; Visit Provider Family Medicine | DX: N89.8 Other specified noninflammatory disorders of vagina (principal) | CPT/HCPCS: 87210 ==

== ENCOUNTER 2024-08-19 12:16 | Outpatient (CLI) | payer BC, SELFPAY ==
[2024-08-19 13:35] LABS: Hemoglobin A1C 5.5 % (4.0-6.0)
[2024-08-19 13:43] LABS: Red Blood Count 4.76 M/mm3 (4.20-5.40); White Blood Count 9.4 K/mm3 (4.8-10.8)
[2024-08-19 13:44] LABS: Basophils % 0.4 % (0.1-2.0); Eosinophils # 0.1 K/mm3 (0.0-0.4); Eosinophils % 1.4 % (0.1-12.0); Hemoglobin 14.6 g/dL (12.2-16.2); Lymphocytes # 3.4 K/mm3 (0.7-4.5); Lymphocytes % 36.1 % (10-50); Mean Corpuscular Hemoglobin 30.7 pg (27.0-31.2); Mean Corpuscular Volume 90.3 fl (81-99); Mean Platelet Volume 10.3 fl (7.4-10.4); Monocytes # 0.5 K/mm3 (0.1-1.0); Monocytes % 5.7 % (1.7-9.3); Neutrophils # 5.3 K/mm3 (1.8-7.8); Neutrophils % 56.1 % (37.0-80.0); Platelet Count 337 K/mm3 (142-424); Red Cell Distribution Width 12.2 % (11.5-17.5)
[2024-08-19 13:53] LABS: 25-OH Vitamin D, Total 35.3 ng/mL (30-100)
[2024-08-19 14:01] LABS: Iron 125 ug/dL (37-170)
[2024-08-19 14:02] LABS: Magnesium 1.8 mg/dl (1.6-2.3)
[2024-08-19 14:16] LABS: Total Iron Binding Capacity 337 ug/dL (265-497)
[2024-08-19 14:35] LABS: Thyroid Stimulating Hormone 0.81 uIU/mL (0.465-4.68)
[2024-08-19 14:39] LABS: Ferritin 26.6 ng/ml (6.24-137)
[2024-08-19 14:49] LABS: HCG,Quantitative < 2 mIU/ml (0-5.42)
[2024-08-19 15:45] LABS: Vitamin B12 774 pg/mL (239-931)
== END 2024-08-19 23:59 | disposition home or self-care (01) ==
LOC: LAB 12:17
PROVIDERS: PCP Nurse Practitioner Family; Visit Provider Obstetrics & Gynecology
DX: N93.9 Abnormal uterine and vaginal bleeding, unspecified (principal); Z68.32 Body mass index [BMI] 32.0-32.9, adult; E66.9 Obesity, unspecified
CPT/HCPCS: 36415; 82306; 82607; 82728; 83036; 83540; 83550; 83735; 84207; 84443; 84702; 85025

== ENCOUNTER 2024-08-21 09:40 | Outpatient (CLI) | payer BC, SELFPAY ==
--- NOTE | 2024-08-21 | US_ITS ---
PROCEDURE: US TRANSVAGINAL CLINICAL INDICATION: AUB COMPARISON: No exams were available for comparison FINDINGS: Transvaginal sonographic images of the pelvis were obtained. UTERUS: 9.1cm x 5.5 cmx 5.0cm anteverted with a combined endometrial thickness of 9.2mm. The basilar endometrium appears irregular and could represent adenomyosis. LEFT OVARY: 9ejo2xvn2.6cm with a volume of 3.2ml. There are multiple small follicles within the left ovary. RIGHT OVARY: 3cmx 5mso0br with a volume of 8.8ml. There are multiple small follicles in the right ovary. The largest follicle measures 1.1 cm. Both ovaries are seen and appear normal. Doppler flow to both ovaries are seen. There is no fluid in the cul-de-sac. IMPRESSION: 1. Anteverted uterus normal in shape and size. The endometrium measures 9.2 mm. The basalis of the endometrium appears somewhat irregular and could represent adenomyosis. 2. Both ovaries are seen and appear normal. They contain multiple small follicles. 3. No fluid in the cul-de-sac. Dictated by: Artie Boogie MD 08/21/2024 20:22 Artie Boogie MD in [place] 08/21/2024 20:22
== END 2024-08-21 23:59 | disposition home or self-care (01) ==
LOC: RAD 09:41
PROVIDERS: PCP Nurse Practitioner Family; Visit Provider Obstetrics & Gynecology
DX: N93.9 Abnormal uterine and vaginal bleeding, unspecified (principal)
CPT/HCPCS: 76830

== ENCOUNTER 2024-09-25 07:55 | Outpatient (CLI) | payer BC, SELFPAY ==
--- OUTSIDE RECORDS SUMMARY | 2024-09-25 07:57 | XMS_ITS | Data Portability ---
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 Her history and exam remain consistent in this regard as well. Symptoms have persisted thus far despite conservative treatment with nighttime splinting/bracing , xujl-kcc-xlukiwn medication, therapy, ongoing work restrictions, and now carpal tunnel injection. She has thus failed all conservative treatment and has now elected to move forward to more definitive surgical intervention. We did discuss that given her normal preoperative EMG/NCV study that I cannot guarantee complete symptom relief, but again based on her history, exam, and response to the injection I anticipate good results in this regard.. In regards to patient's right long finger. She does have evidence of a recurrent trigger finger as well as an associated flexor retinacular cyst. She has failed conservative treatment including two previous corticosteroid injections. She has thus elected to proceed with concurrent trigger finger release and cyst excision at the time of her carpal tunnel surgery. She will continue modified work duty until surgery. Patient will be scheduled for right endoscopic carpal tunnel release, right long trigger finger release, and right long finger flexor retinacular cyst excision pending Worker's Compensation approval. Risk and benefits of the surgical procedure were explained to the patient in clinic today, including but not limited to incomplete symptom relief, recurrence, need for additional procedures, stiffness, damage to surrounding tissues/structure s/nerves/vessels, wound complications, and infection. Patient expressed understanding and all questions were answered to the patient's satisfaction. [email or web address] Not available 05/29/2022 17:41:39 08/07/2022 08/07/2022 Patient will continue OT/HEP and can gradually resume activity with the hand as tolerated at this time. I discussed scar massage with patient in clinic today. She will remain off work until cleared by Dr. Sandhu. Patient will follow-up in [address] Sandhu, but will call in the interim with any additional questions or concerns. [email or web address] Not available 08/09/2022 08:48:57 09/11/2022 09/11/2022 Patient can continue activity with the hand/arm as tolerated at this time. Continue scar massage. She can transition to home therapy program. Okay to return to work without any restrictions. Patient will follow up in clinic on an as-needed basis should additional questions or concerns arise. [email or web address] Not available 09/11/2022 16:59:06 Plan of Treatment Reminders Order Date Submit Date Provider Last Modified By Organization Details Last Modified Time Details Appointments None record ed. Lab None record ed. Referral None record ed. Procedures None record ed. Surgeries None record ed. Imaging None record ed. Medication Orders None record ed. Patient TargetsNo targets recorded. Patient InstructionsNo instructions recorded. Reason for Referral None Reported. Results Created Date Observation Date Name Description Value Unit Range Abnormal Flag Note LastModifiedBy Organization Detail LastModifiedTime 05/01/2005/01/2022 nerve condu ction study /EMG, upper extre mity (PROC ) No observ ation record ed. [email or web address] Terrance Clement MD [address] [place] [address], [id number], 05/01/2022 14:25:22 Result Notes None recorded. Procedures Surgical History Date Name Laterality Status Provider Name and Address Organization Details Recorded Time 07/23/19 23 Op Note completed ALVA SANDHU MD [address] [place] [address], [phone], [facility] 07/23/2022 08:32:32 05/01/20 22 Injection Carpal Tunnel completed ALVA SANDHU MD [address] [place] [address], [phone], [facility] 05/01/2022 17:34:18 05/01/20 22 Electromyography (EMG) with Nerve Conduction Study (NCV) completed Danelle Cooney (Nicky) [facility] 05/01/2022 11:26:05 Imaging Results Imaging Date Name Status LastModified by Organiz ation Details LastModified Time 05/01/2022 nerve conduction study/EMG, upper extremity (PROC) completed Terrance Clement MD [address] [place], [address], 05/01/2022 14:25:22 Procedure Notes None recorded. Medical Equipment None Reported. Allergies No known drug allergies Medications Name Sig Start Date Stop Date Status Note LastModified by Organization Details LastModified Time albuterol sulfate 1.25 mg/3 mL solution for nebulization Inhale 3 mL 3 times a day by inhalation route. active Not Available Not Available No t Available tramadol 50 mg tablet TAKE 1 TABL PO Q 4-6 HRS PRN FOR SEVERE POST SURGICAL PAIN 2022 active Not Available Not Available Not Avai lable meloxicam 7.5 mg tablet TAKE 1 TABLE PO QD WITH FOOD REGARDLESS OF PAIN LEVEL FOR 1 WEEK. THEN TAKE 1 TABLET PO QD ONLY PRN FOR PAIN RELIEF THEREAFTER 2022 active Not Available Not Available Not Avai lable Neurontin 100 mg capsule TAKE 1 CAPSULE PO QHS FOR 1 WEEK 2022 active Not Available Not Available Not Avai lable Abilify 5 mg tablet Take 1 tablet every day by oral route. active Not Available Not Available No t Available acyclovir as needed active Not Available Not Available Not Available Viibryd 20 mg tablet Take 1 tablet every day by oral route. active Not Available Not Available No t Available Vitals Date Recorded Body height Body mass index (BMI) Body weight Provider Name and Address Organization Details Last Updated DateTime 05/01/2022 154.94 cm 30.2 kg/m2 41377.78 g [facility] 05/01/2022 16:33:08 Date Recorded Body height Body mass index (BMI) Body weight Provider Name and Address Organization Details Last Updated DateTime 05/29/2022 154.94 cm 30.2 kg/m2 98630.78 g [facility] 05/29/2022 15:08:54 Date Recorded Body height Body mass index (BMI) Body weight Pain severity - 0-10 verbal numeric rating [Score] - Reported Provider Name and Address Organization Details Last Updated DateTime 08/07/2022 154.94 cm 30.2 kg/m2 41003.78 g 3 Alicia Nettles [facility] 08/07/2022 14:27:35 Date Recorded Body height Body mass index (BMI) Body weight Pain severity - 0-10 verbal numeric rating [Score] - Reported Provider Name and Address Organization Details Last Updated DateTime 09/11/2022 154.94 cm 30.2 kg/m2 39592.78 g 0 Alicia Nettles [facility] 09/11/2022 16:26:13 Social History None recorded. Functional Status None recorded. Mental Status None recorded. Family History Nothing Reported. Medical History No medical history recorded. Gynecological HistoryNo gynecological history recorded. Obstetrics History GPAL:G 0 P 0 0 0 0 Past Encounters Encounter ID Performer Location Encounter Start Date Encounter Closed Date Diagnosis/Indication Diagnosis SNOMED-CT Code Diagnosis ICD10 Code Diagnosis Note [id number] JONY SEE PA-C [facility] [address] [place] [address] 03/20/2022 14:16:28 03/20/2022 15:01:07 Ganglion of flexor tendon sheath of finger 897094878 M67.441 Right Long Finger Flexor Retinacula r Cyst - previously treated for right long trigger finger with 2 corticoste ri[address] injections by Dr. 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 Rose in 2020) Carpal cuca danyelle syndrome 96073199 G56.01 Right carpal tunnel CSI: 05/01/2022 EMG/NCV ( 2) was normal [id number] ALVA SANDHU MD [facility] [address] [address] 05/29/2022 14:38:52 05/29/2022 16:22:09 Carpal tunnel syndrome 68654440 G56.01 Right carpal tunnel CSI: 05/01/2022 EMG/NCV ( 2) was normal Acquired t acoustic warfare analyst finger 7988657 M65.30 M65.331 Right long trigger finger (status post two previous corticoste roid injections by Dr. Rose in 2020) Ganglion o f flexor tendon sheath of finger 667111314 M67.441 Right long finger flexor retinacula r cyst [id number] ALVA SANDHU MD SURGERY SCHEDULE [address] [place] [address] 07/23/2022 06:06:49 07/23/2022 06:13:22 [id number] JONY SEE PA-C [facility] [address] [address] 08/07/2022 13:36:18 08/08/2022 12:43:29 Postoperative care 315067750 Z48.89 s/p Right endoscopic carpal tunnel release; Right long trigger finger release; Right long finger flexor retinacula r cyst excision (DOS: 07/23/22) [id number] ALVA SANDHU MD [facility] [address] [address] 09/11/2022 15:31:48 09/11/2022 16:58:55 Postoperative care 056800739 Z48.89 7 weeks s/p Right endoscopic carpal tunnel release; Right long trigger finger release; Right long finger flexor retinacula r cyst excision (DOS: 07/23/22) Health Concerns Section Related Observation LastModified by Organization Detai ls LastModified Time None Recorded Concern Status LastModified by Organization Details LastModified Time None Recorded Advance Directives Directive None Recorded Payers Encounter Date Sequence Insurance Name Policy Number Policy Hawk Covered Member ID Hawk Member ID Guarantor Name 05/01/2022 [employer] 05/29/2022 [employer] Ret[place] 07/23/2022 1 [place] [id number] A Christopher Retana [id number] Maddie Retana 08/07/2022 1 [place] [id number] A Christopher Retana [id number] Maddie Retana 09/11/2022 1 [place] [id number] A Christopher Retana [id number] Maddie Retana Notes Date Note Type Note Provider Name and Address Organization Details Recorded Time 05/01/2022 text/html Patient is a 31-year-old srtgh-rktv-anxbkwhf female who works for [employer]. She is being followed as a Worker's Compensation consultation for ongoing right hand symptoms. She was initially seen by my PA Jony See at which time she reported numbness and tingling in the hand as well as associated pain. She reports previous history of a right long trigger finger managed with two corticosteroid injections previously by Dr. Rose, but with subsequent development of an associated flexor retinacular cyst. She reports pain with direct palpation over the cyst. In regards to her hand numbness and tingling, she reports that this has been present for the past few months and involves the central three digits (carpal tunnel distribution on a Senior diagram). She reports radiating symptoms and pain up along the volar wrist and forearm. States that symptoms wake her up from sleep, even with use of a nighttime wrist splint. She reports problems with dexterity as she is starting to drop things more frequently. Conservative treatment thus far is consisted of nighttime splinting/bracing, therapy, rnat-ecw-pdoxfee medications, and ongoing work restrictions. She presents back today to discuss her EMG/NCV results. Consult requested by: Kamari Zavala Hand dominance: {{Right* Left ambide xtrous}}Location: {{Right* Left Bilate ral}} {{Hand* Wrist Elbow Other}} LF Pain level: {{0 1 2* 3 4 5 6 7 8 9 10}} /10 Date of injury: 03/01/2022 Recent Surgery: {{Yes No*}} Previous upper extremity surgery? 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 {{Yes* No}} with restrictions Is this injury associated with a Workers Compensation claim? {{Yes* No}} EMG results. N/t is a little better from the splint. ALVA SANDHU MD [address] [place] [address], [phone], [facility] 05/02/2022 17:08:00 05/29/2022 text/html Patient reports initial irritation following the injection, but then with improvement in symptoms thereafter with resolution of nocturnal symptoms temporarily as well as improvement in the numbness and tingling in her central three digits. However, the symptoms are now back to baseline. She also reports more aggravation associated with her right long trigger finger symptoms. In summary, patient is a 31-year-old lxqrc-htfb-ezqzwnzt female who works for [employer]. She is being followed as a Worker's Compensation consultation for ongoing right hand symptoms. She was initially seen by my PA Jony See at which time she reported numbness and tingling in the hand as well as associated pain. She reports previous history of a right long trigger finger managed with two corticosteroid injections previously by Dr. Rose, but with subsequent development of an associated flexor retinacular cyst. She reports pain with direct palpation over the cyst. In regards to her hand numbness and tingling, she reports that this has been present for the past few months and involves the central three digits (carpal tunnel distribution on a Senior diagram). She reports radiating symptoms and pain up along the volar wrist and forearm. Reports that she has to shake out her hand intermittently for symptom relief (positive flick sign). States that symptoms wake her up from sleep, even with use of a nighttime wrist splint. She reports problems with dexterity as she is starting to drop things more frequently. Conservative treatment thus far is consisted of nighttime splinting/bracing, therapy, agsl-ftt-ddhnbop medications, and ongoing work restrictions. She presents back today to discuss her EMG/NCV results. Consult requested by: Kamari Zavala Hand dominance: {{Right* Left ambide xtrous}}Location: {{Right* Left Bilate ral}} {{Hand* Wrist Elbow Other}} LF Pain level: {{0 1 2* 3 4 5 6 7 8 9 10}} /10 Date of injury: 03/01/2022 Recent Surgery: {{Yes No*}} Previous upper extremity surgery? 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 {{Yes* No}} with restrictions Is this injury associated with a Workers Compensation claim? {{Yes* No}}Injection from 05-01-2022, worsened initially, but then improved following injection at last visit ALVA SANDHU MD [address] [place], [address], [facility] 05/29/2022 17:41:49 08/07/2022 text/html Patient presents today for post op follow up visit. Reports uneventful post op period. POST OP GLOBAL VISITDATE OF SURGERY: 07/23/22TIME POST SURGERY:{{10-14 DAYS 2 WKS* 6 WKS 12WKS OTHER:}}AVILA JOHNATHAN:INTERVAL HISTORY:-Right endoscopic carpal tunnel release-Right long trigger finger release-Right long finger flexor retinacular cyst excision PREOP SYMPTOMS{{RESOLVED B JULIA* WORSE SAME}} PAIN LEVEL (VAS){{1 2 3* 4 5 6 7 8 9 10}}/10 OVERALL ASSESSMENT{{IMPROVIN G* WORSENING SAME}} JONY SEE PA-C [address] [place], [address], [facility] 08/09/2022 08:49:11 09/11/2022 text/html Patient is doing very well at this time with continued complete resolution of preoperative numbness and tingling and no pain in the hand. Therapy has been helpful and she now reports normal function of the hand without any further problems. POST OP GLOBAL VISITDATE OF SURGERY: 07/23/22TIME POST SURGERY:{{10-14 DAYS 2 WKS 6 WKS 12WKS OTHER: 7 weeks#}}SURGERY:INTE RVAL HISTORY:-Right endoscopic carpal tunnel release-Right long trigger finger release-Right long finger flexor retinacular cyst excision PREOP SYMPTOMS{{RESOLVED B JULIA* WORSE SAME}} PAIN LEVEL (VAS){{1 2 3 4 5 6 7 8 9 10 0#}}/10 OVERALL ASSESSMENT{{IMPROVIN G* WORSENING SAME}} Ms. Retana is here for a recheck. She would like to discuss therapy and potential d/c. She would like to discuss return to work and any restrictions. ALVA SANDHU MD [address] [place], [address], [facility] 09/11/2022 16:59:14 OBGyn Episode No OBEpisode recorded.
[2024-09-25 08:45] VITALS: PULSE 73; PULSE 79
[2024-09-25] MEDS: ALBUTEROL 0.083% 2.5 MG/3 ML NEB IH (08:45)
== END 2024-09-25 23:59 | disposition home or self-care (01) ==
LOC: RT 07:56
PROVIDERS: PCP Nurse Practitioner Family; Visit Provider Nurse Practitioner Family
DX: J45.909 Unspecified asthma, uncomplicated (principal)
CPT/HCPCS: 94060; 94640; 94726; 94729

== ENCOUNTER 2024-10-05 20:38 | Outpatient (CLI) | payer BC, SELFPAY | END 2024-10-05 23:59 | disposition home or self-care (01) | PROVIDERS: PCP Nurse Practitioner Family; Visit Provider Student in an Organized Health Care Education/Training Program | DX: J02.9 Acute pharyngitis, unspecified (principal) ==

== ENCOUNTER 2024-12-17 14:45 | Outpatient (CLI) | payer BC, SELFPAY ==
--- OUTSIDE RECORDS SUMMARY | 2024-10-07 16:30 | XMS_ITS | Encounter Summary ---
Author Organization [facility] Address [address] [place] [phone] Phone [email or web address] Care Team Providers Care Senior Financial Analyst Name Role Phone Provider, No Primary Care Provider Unavailabl e Reason for Visit * Reason Comments Follow Up Weight Issue Encounter Details Date Type Department Care Team (Late st Contact Info) Description 10/07/2024 4:30 PM EDT Office Visit [facility] [address] [place] [address] Nallely Bashir PA [address] [place] [address] Class 1 obesity due to [...] on her phone. Will send results via [employer]. - Work on healthy eating, exercise, and follow up in 1 month after first injection, once initiated. Orders: Comprehensive metabolic panel CMP ([id number]) URI, acute -Symptoms appear to be more [...] Care Team (Late st Contact Info) Description 01/01/2025 5:00 PM EDT Office Visit [facility] [address] [place] [address] Nallely Bashir PA [address] [place] [address] documented as of this encounter Procedures Procedure Name Priority Date/Time Associated Diagnosis Comments COMPREHENSIVE METABOLIC PANEL Routine 10/07/2024 Class 1 obesity due to excess calories with body mass index (BMI) of 33.0 to 33.9 in adult, unspecified whether serious comorbidity present documented in this encounter Results * (ABNORMAL) Comprehensive metabolic panel [facility] ([id number]) (10/07/2024) Pathologist [facility] Glucose 119(H) 65 - 99 mg/dL [facility] [...] Final R esult [facility] [address] [place] [address] documented in this encounter Visit Diagnoses Diagnosis Class 1 obesity due to excess calories with body mass index (BMI) of 33.0 to 33.9 in adult, unspecified whether serious comorbidity present- Primary Encounter for weight loss counseling URI, acute Acute upper respiratory infections of unspecified site documented in this encounter Care Teams Senior Financial Analyst Relationship Specialty Start Date End Date Provider, SHERI Diaz [id number] PCP - General Button Breaker Operator 04/06/20 documented as of this encounter
--- OUTSIDE RECORDS SUMMARY | 2024-11-03 16:00 | XMS_ITS | Encounter Summary ---
Author Organization [facility] Address [address] [place] [phone] Phone [email or web address] Care Team Providers Care Purse Maker Name Role Phone Provider, No Primary Care Provider Unavailabl e Encounter Details Date Type Department Care Team (Late st Contact Info) Description 11/03/2024 4:00 PM EDT Office Visit [facility] [address] [place] [address] Nallely Bashir PA [address] [place] [address] Class 1 obesity due to excess calories with body mass index (BMI) of 33.0 to 33.9 in adult, unspecified whether serious comorbidity present (Primary Dx); Encounter for weight loss counseling Social History Tobacco Use Types Packs/Day Years Used Date Smoking Tobacco: Never Smokeless Tobacco: Never Alcohol Use Standard Drinks/Week Comments Never 0 [...] on file documented as of this encounter Progress Notes * KIMBERLEE Alves - 11/03/2024 4:00 PM EDT Allergies Chart Review Health Maintenance History Immunizations Screenings Search Synopsis This Visit Vital Signs Assessment & Plan Class 1 obesity due to excess calories with body mass index (BMI) of 33.0 to 33.9 in adult, unspecified whether serious comorbidity present Encounter for weight loss counseling - Will increase Zepbound to 5mg once a week - Continue to eat healthy and exercise - Follow up in 1 month or sooner, if needed - Make sure she is drinking plenty of water, keeping her bowels moving, and taking MVI Orders: Tirzepatide-Weight Management (Zepbound, tirzepatide, 5mg/0.5mL Single-Dose Pen SQ) 5 MG/0.5ML solution auto-injector; Inject 0.5 mL (5 mg total) under the skin 1 (one) time per week for 4 doses. Administer same day each week. Follow-up: No follow up orders placed. Subjective Maddie Retana is a 34 y.o. Reason(s) for visit on 11/03/2024: HPI: Pt presents for weight loss followup. Currently taking Zepbound 2.5mg once a week Appetite is well controlled on current medication dose. Reports the following side effects: Mild nausea and constipation. Pt reports they are getting adequate fiber and protein intake. Pt reports they are performing strength training to maintain lean muscle mass. Pt reports they are having normal bowel movements as long as she takes her fiber supplements and use Miralax as needed. Since last visit: Lbs lost: 9.8 lbs Spent 15 minutes counseling Maddie on weight loss. General Associated symptoms include fatigue and nausea (after shot). Pertinent negatives include no abdominal pain, chest pain, coughing or headaches. Review of Systems Constitutional: Positive for fatigue. Respiratory: Negative for cough and shortness of breath. Cardiovascular: Negative for chest pain and palpitations. Gastrointestinal: Positive for constipation (See HPI) and nausea (after shot). Negative for abdominal pain and diarrhea. Neurological: Negative for light-headedness and headaches. The following portions of the patient's chart were reviewed by me during this encounter and updatedas appropriate: Tobacco Allergies Meds Problems Med Hx Surg Hx Fam Hx Objective Visit Vitals OB Status Having periods Smoking Status Never Physical Exam Vitals reviewed. Constitutional: General: She is not in acute distress. Appearance: She is not ill-appearing, toxic-appearing or diaphoretic. Neck: Comments: no palpable thyroid enlargement or masses Cardiovascular: Rate and Rhythm: Normal rate and regular rhythm. Heart sounds: Normal heart sounds. No murmur heard. No gallop. Pulmonary: Effort: Pulmonary effort is normal. No respiratory distress. Breath sounds: Normal breath sounds. No wheezing, rhonchi or rales. Abdominal: General: Bowel sounds are normal. There is no distension. Palpations: Abdomen is soft. There is no mass. Tenderness: There is no abdominal tenderness. There is no guarding. Musculoskeletal: Cervical back: Neck supple. No tenderness. Neurological: Mental Status: She is alert and oriented to person, place, and time. Psychiatric: Mood and Affect: Mood normal. KIMBERLEE Alves 11/03/2024 Note to patient: The Century Cures Act makes medical notes like these [...] Description 01/01/2025 5:00 PM EDT Office Visit [facility] [address] [place] [address] Nallely Bashir PA [address] [place] [address] documented as of this encounter Visit Diagnoses Diagnosis Class 1 obesity due to excess calories with body mass index (BMI) of 33.0 to 33.9 in adult, unspecified whether serious comorbidity present- Primary Encounter for weight loss counseling documented in this encounter Care Teams Purse Maker Relationship Specialty Start Date End Date Provider, [place] [address] PCP - General Diesel Scoop Operator 04/06/20 documented as of this encounter
--- OUTSIDE RECORDS SUMMARY | 2024-12-01 17:00 | XMS_ITS | Encounter Summary ---
Author Organization [facility] Address [address] [place] [id number] Phone [email or web address] Care Team Providers Care Health Unit Coordinator Name Role Phone Provider, No Primary Care Provider Unavailabl e Reason for Visit * Reason Comments Weight Issue Fu weight loss Encounter Details Date Type Department Care Team (Late st Contact Info) Description 12/01/2024 5:00 PM EDT Office Visit [facility] [address] [place] [address] Opal Mujica, NICLOAS [address] [place] [address] BMI 28.0-28.9,adult (Primary Dx); Overweight; [...] from patient requesting RX be moved to [facility] in [place], cancelled at [facility] and sent to [facility] per patient request. RJ documented in this encounter Miscellaneous Notes * Addendum Note - Opal Mujica NP - 12/01/2024 5:00 PM EDTAddended by: OPAL MUJICA on: 12/02/2024 03:09 PM Modules accepted: Orders documented in this encounter Plan of Treatment Upcoming Encounters Date Type Department Care Team (Late st Contact Info) Description 01/01/2025 5:00 PM EDT Office Visit [facility] [address] [place] [address] Nallely Bashir PA [address] [place] [address] documented as of this encounter Visit Diagnoses Diagnosis BMI 28.0-28.9,adult- Primary Overweight Encounter for weight loss counseling documented in this encounter Care Teams Health Unit Coordinator Relationship Specialty Start Date End Date Provider, [place] [address] PCP - General County Director Welfare 04/06/20 documented as of this encounter
--- OUTSIDE RECORDS SUMMARY | 2024-12-14 09:00 | XMS_ITS | Encounter Summary ---
Author Organization [place] [address] Care Team Providers Care Event Decorator Name Role Phone Unavailable Primary Care Provider Unavailabl e Reason for Visit * Reason Comments New Patient * Consultation (Routine) - Authorization Not Needed Specialty Diagnoses / Procedures Referred By Kanwal schmidt Referred To Contact Gynecology Diagnoses Female stress incontinence [facility] [address] [address] Phone: tel: fax: [facility] [address] [address] Phone: tel: fax: Referral ID Status Reason Start Date Expiration Date Visits Requested Visits Authorized [id number] Authorization Not Needed 08/27/2024 08/27/2025 99 99 Encounter Details Date Type Department Care Team (Latest Contact Info) Description 12/14/2024 9:00 AM EDT Office Visit [facility] [address] [address] Caitlin Ambrose MD [address] [place] [address] Urge incontinence (Primary Dx); Stress incontinence; [...] Substance and Sexual Activity Sexual Activity Yes Corporate Communications Manager History: OB History 4 Para 3 Term 1 2 AB 1 Living 2 SAB 1 IAB Ectopic Multiple Live Births 2 Gynecology-specific Surgical History: Hysterectomy: no Oopherectomy: no Salpingectomy (Fallopian tubes removed): no Prolapse surgery: yes posterior repair with Dr. Ardon in [place] 2017 Vaginal surgery: no Mesh placed: no [...] Urinary catheter) with the presence of a floor installation mechanic named CORRINA Smith. The patient voiced understanding and gave verbal consent. 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 Due to her age and medical comorbidities listed below, she is identified as having moderate risks in proceeding with specialty treatment as discussed today. Thus, I reviewed her prior labwork and imaging studies which contribute to my personal interpretations below. 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 [employer] and in particular prior posterior rectocele repair [...] - RTC for pre op UROS with BROOMCORN SCRAPER - RTC for surgery consent with MD for possible sling + rx *h/o posterior repair 2017 [facility] Caitlin Ambrose MD FACOG URPS Host @ [employer] [email or web address] Division of Urogynecology [address] [place], [place] [id number] option #2 [email or web address] 12/14/24 9:30 AM documented in this encounter Miscellaneous Notes * Patient Instructions - Caitlin Ambrose MD - 12/14/2024 9:00 AM EDT Images from the original note were not included. [employer] can be a convenient and powerful tool to streamline and facilitated your care; however, there may be a misunderstanding around its appropriate use. Please understand the following: CircleUpt should NEVER be used for urgent or [...] deliver the high-quality care you deserve. 4. [employer] network messages are a part of your permanent medical record We appreciate your understanding in this, and we will continue to work our hardest to deliver the top tier care that you have come to expect from our office. documented in this encounter Plan of Treatment Upcoming Encounters Date Type Department Care Team (Late st Contact Info) Description 01/13/2025 1:30 PM EDT Office Visit [facility] [place] [address] [place] [address] [place] [address] [place] [address] 01/19/2025 3:20 PM EDT Procedure visit [facility] Urogynecology [address] [address] Malgorzata Zaidi, CORE LAYING MACHINE OPERATOR [address] [place] [address] 01/25/2025 3:40 PM EDT Telemedicine [facility] Urogynecology [address] [address] Caitlin Ambrose MD [address] [place] [address] documented as of this encounter Procedures [...] POC Yellow Color 12/14/2024 9:32 AM EDT [facility]A Appear POC Clear Clear 12/14/2024 9:32 AM EDT [facility] [place] Gluc POC Negative Negative mg/dL 12/14/2024 9:32 AM EDT [facility] Bili POC Small(A) Negative 12/14/2024 9:32 AM EDT [facility] [place] UA Ketones POC Negative Negative mg/dL 12/14/2024 9:32 AM EDT [facility] SG POC 1.025 1.001 - 1.035 no units 12/14/2024 9:32 AM EDT [facility] UA Blood POC Negative Negative 12/14/2024 9:32 AM EDT [facility] pH POC 5.5 5.0 - 8.0 pH 12/14/2024 9:32 AM EDT [facility] UA Protein POC Negative Negative mg/dL 12/14/2024 9:32 AM EDT [facility] Urobilinogen POC 0.2 0.2, 1.0 12/14/2024 9:32 AM EDT [facility] UA Nitrite POC Negative Negative 12/14/2024 9:32 AM EDT [facility] UA Leuk Est POC Negative Negative 9:32 AM EDT [facility] Urine STRUCTURE OF URINARY TRACT PROPER / Unknown 12/14/2024 9:30 AM EDT 12/14/2024 9:32 AM EDT Caitlin Ambrose MD POINT OF CARE TEST ORDERA BLES Final Result Performing Organization Address City/[facility]/ZIP Co de Phone Number [address] [place] [address] * URINE CULTURE (NO STAIN) (12/14/2024 9:28 AM EDT) Culture No growth at 30 hours. 12/17/2024 6:34 AM EDT [facility] [employer] Urine URINARY BLADDER STRUCTURE / Unknown 12/14/2024 9:28 AM EDT 12/14/2024 9:28 AM EDT Caitlin Ambrose MD MICROBIOLOGY - GENERAL OR DERABLES Final Result [facility], [facility] [address] [facility] , [place] [address] * (ABNORMAL) URINALYSIS (12/14/2024 9:28 AM EDT) [...] 12/15/2024 9:22 AM EDT [facility] UA Urobilinogen Normal <=1 mg/dL 9:22 AM [...] 12/15/2024 9:22 AM EDT [facility] Comment:Reference range belle d for random specimens [...] /HPF 12/15/2024 9:22 AM EDT [facility] UA Hyal Cast 3(H) 0 - 2 /LPF 12/15/2024 9:22 AM EDT [facility] Urine URINARY BLADDER STRUCTURE / Unknown 12/14/2024 9:28 AM EDT 12/14/2024 9:28 AM EDT Caitlin Ambrose MD URINE ORDERABLES Final Re sult [facility] [address] [facility] , [place] [address] documented in this encounter Visit Diagnoses Diagnosis [...] 3 fluticasone propionate (FLONASE) 50 mcg/actuation Nasl [place], Suspension use 1 spray(s) in each nostril [...]
[2024-12-17] MEDS: METHACHOLINE CHLORIDE 65MG/18ML KIT 64 MG IH (15:00)
--- OUTSIDE RECORDS SUMMARY | 2024-12-17 15:15 | XMS_ITS | Clinical Summary ---
Author Organization [facility] [place] Address [address] [place] [phone] Phone Care Team Providers Care Stamp Machine Servicer Name Role Phone Unavailable Primary Care Provider Unavailabl e Allergies Active Allergy Reactions Criticality Noted Date Comments Acetaminophen Hives,Other (See Comments) Medium 03/07/2017 Other Reaction(s) from [facility]: UNK Children's Tylenol CHILDREN TYLENOL ONLY CAUSED ISSUE Lumateperone Other (See Comments) Medium 12/14/2024 Severe dizziness and spacing out Medications albuterol (ACCUNEB) 1.25 mg/3 mL Inhl Solution for Nebulization Inhale 3 mL 3 times a day by inhalation route. Active AIRSUPRA 90-80 mcg/actuation Inhl HFA Aerosol Inhaler INHALE 2 PUFFS BY MOUTH ONCE DAILY NEEDED FOR WHEEZING 09/17/19 25 Active ARIPiprazole (ABILIFY) 5 mg Oral Tablet Take 1 tablet every day by oral route. Active buPROPion (WELLBUTRIN) 75 mg Oral Tablet Take 75 mg by mouth daily. Active cetirizine (ZYRTEC) 10 mg Oral Tablet 04/19/20 22 Active Cholecalciferol, Vitamin D3, 50 mcg (2,000 unit) Oral Capsule Take 1 Capsule by mouth daily. 07/05/19 25 Active AUVELITY 45-105 mg Oral tablet, IR & ER, biphasic Take 1 Tablet by mouth 2 times daily. 08/12/19 25 Active docusate calcium (SURFAK) 240 mg Oral Capsule Take 240 mg by mouth daily. 12/21/19 18 Active fluticasone propionate (FLONASE) 50 mcg/actuation Nasl [place], Suspension use 1 spray(s) in each nostril once daily 08/27/19 25 Active gabapentin (NEURONTIN) 100 mg Oral Capsule TAKE 1 CAPSULE PO QHS FOR 1 WEEK 07/23/19 23 Active ibuprofen (ADVIL;MOTRIN) 800 mg Oral Tablet Take 800 mg by mouth. 08/13/19 25 Active levocetirizine (XYZAL) 5 mg Oral Tablet Take 5 mg by mouth every evening. 10/13/19 25 Active meloxicam (MOBIC) 7.5 mg Oral Tablet TAKE 1 TABLE PO QD WITH FOOD REGARDLESS OF PAIN LEVEL FOR 1 WEEK. THEN TAKE 1 TABLET PO QD ONLY PRN FOR PAIN RELIEF THEREAFTER 07/23/19 23 Active TRI-SPRINTEC, 28, 0.18/0.215/0.25 mg-0.035mg (28) Oral Tablet Take 1 Tablet by mouth daily. 08/22/19 25 Active ZEPBOUND 7.5 mg/0.5 mL SubQ Pen Injector INJECT 1 AUTO-INJECTOR SUBCUTANEOUSLY ONCE A WEEK ON THE SAME DAY 12/03/19 25 Active traMADoL (ULTRAM) 50 mg Oral Tablet TAKE 1 TABL PO Q 4-6 HRS PRN FOR SEVERE POST SURGICAL PAIN 07/23/19 23 Active valACYclovir (VALTREX) 500 mg Oral Tablet TAKE 1 CAPLET BY MOUTH TWICE DAILY 07/16/19 21 Active VIIBRYD 20 mg Oral Tablet Take 1 tablet every day by oral route. Active Encounters Date Type Department Care Team Description 12/17/2024 Results Follow-Up [facility] Urogynecology [address] [address] Caitlin Ambrose MD URINALYSIS, URINE CULTURE (NO STAIN) 12/14/2024 9:00 AM EDT Office Visit [facility] Urogynecology [address] [address] Caitlin Ambrose MD Urge incontinence (Primary Dx); Stress incontinence; Mixed incontinence; Urinary frequency 10/06/2024 Telephone [facility] [place] [address] [place] [address] Allison Green MD Appointment Needed (L TACKER Appt) from Last 3 Months Social History Tobacco Use Types Packs/Day Years [...] on file Sexual Orientation Not on file Obstetrics History Para Term AB IAB SAB Ectopic Multiple Livin g Live Births 4 3 1 2 1 1 2 2 Date Outcome GA Total Labor Labor/2nd/3rd Weight Sex Type Anes PTL Debbie A1 A5 Name Clin 2010 35w 0d 7 lb 5 oz (3.317 kg) F Vag-S pont Epidur al Y Livin g Delivery Location:[facility] 2012 SAB 2015 36w 4d 9 lb 2 oz (4.139 kg) M Vag-S pont Epidur al Y Delivery Location:[facility] 2017 Term 39w 2d 7h 07m 6h 47m/0h 14m/0h 06m 9 lb 1.8 oz (4.134 kg) M Vag-S pont Epidur al N Livin g 9 9 HENSL EY,BR IDGIT SBOY Ryan Buddy Ilir t DO Complications:None Delivery Location:[facility] ( [facility] LABOR DELIVERY) Comments:99.7 ax 130 5 2 Last Filed Vital Signs Vital Sign Reading Time Taken Comments Blood Pressure 106/64 12/14/2024 9:13 AM EDT Pulse 92 12/14/2024 9:13 AM EDT Temperature - - Respiratory Rate - - Oxygen Saturation 96% 12/14/2024 9:13 AM EDT Inhaled Oxygen Concentration - - Weight 69.5 kg (153 lb 3.2 oz) 12/14/2024 9:13 A M EDT Height - - Body Mass Index - - Plan of Treatment Upcoming Encounters Date Type Department Care Team (Late st Contact Info) Description 01/13/2025 1:30 PM EDT Office Visit [facility] [place] [address] [place] [address] [place] [address] [place] [address] 01/19/2025 3:20 PM EDT Procedure visit [facility] Urogynecology [address] [address] Malgorzata Zaidi APRN [address] [place] [address] 01/25/2025 3:40 PM EDT Telemedicine [facility] Urogynecology [address] [address] Caitlin Ambrose MD [address] [place] [address] Health Maintenance Due Date Last Done Comments Annual Wellness Exam 1991 DTaP/TDaP/Td (1 - Tdap) 2007 Hepatitis B Vaccine (1 of 3 - 19+ 3-dose series) 2007 Cervical Cancer Screening 2009 Pap Smear 2009 HPV/Pap Cotest 2018 COVID-19 Vaccine (2023-2 5 season) 2024 Influenza Vaccine (#1) 2025 Meningococcal B Vaccine Aged Out No l onger eligible based on patient's age to complete this topic Pneumococcal Vaccine 0-49 Aged Out No longer eligible based on patient's age to complete this topic Procedures Procedure Name Priority Date/Time Associated Diagnosis Comments SEP URINALYSIS POC Routine 12/14/2024 9: 30 AM EDT URINALYSIS Routine 12/14/2024 9:28 AM EDT Urinary frequency URINE CULTURE (NO STAIN) Routine 12/14/2024 9:28 AM EDT Urinary frequency from Last 3 Months Results * (ABNORMAL) SEP URINALYSIS POC (12/14/2024 9:30 AM EDT) UA Color POC Yellow Color 12/14/2024 9:32 AM EDT [facility] [place] UA Appear POC Clear Clear 12/14/2024 9:32 AM EDT [facility] Gluc POC Negative Negative mg/dL 12/14/2024 9:32 AM EDT [facility] UA Bili POC Small(A) Negative 12/14/2024 9:32 AM EDT [facility] UA Ketones POC Negative Negative mg/dL 12/14/2024 9:32 AM EDT [facility] UA SG POC 1.025 1.001 - 1.035 no units 12/14/2024 9:32 AM EDT [facility] UA Blood POC Negative Negative 12/14/2024 9:32 AM EDT [facility] UA pH POC 5.5 5.0 - 8.0 pH 12/14/2024 9:32 AM EDT [facility] UA Protein POC Negative Negative mg/dL 12/14/2024 9:32 AM EDT [facility] UA Urobilinogen POC 0.2 0.2, 1.0 12/14/2024 9:32 AM EDT [facility] UA Nitrite POC Negative Negative 12/14/2024 9:32 AM EDT [facility] UA Leuk Est POC Negative Negative 9:32 AM EDT [facility] Urine STRUCTURE OF URINARY TRACT PROPER / Unknown 12/14/2024 9:30 AM EDT 12/14/2024 9:32 AM EDT us Caitlin Ambrose MD POINT OF CARE TEST ORDERA BLES Final Result [facility] [place] [address] * (ABNORMAL) URINALYSIS (12/14/2024 9:28 AM EDT) UA Color Yellow 12/15/2024 9:22 AM EDT [facility] UA Appear Slightly Cloudy(A) Clear 12/15/2024 9:22 AM EDT [facility] UA Glucose Negative Negative mg/dL 12/15/2024 9:22 AM EDT [facility] UA Ketones Negative Negative mg/dL 12/15/2024 9:22 AM EDT [facility] UA Blood Negative Negative 12/15/2024 9:22 AM EDT [facility] UA pH 6.0 5.0 - 8.0 pH 12/15/2024 9:22 AM EDT [facility] UA Protein 1+ (30 mg/dL)(A) Negative mg/dL 12/15/2024 9:22 AM EDT [facility] UA Urobilinogen Normal <=1 mg/dL 9:22 AM EDT [facility] UA Bili Negative Negative 12/15/2024 9:22 AM EDT [facility] UA Nitrite Positive(A) Negative 12/15/2024 9:22 AM EDT [facility] UA Leuk Est Negative Negative 12/15/2024 9:22 AM EDT [facility] UA Spec Grav >1.030 1.001 - 1.035 no units 12/15/2024 9:22 AM EDT [facility] Comment:Reference range belle d for random [...] 12/15/2024 9:22 AM EDT [facility] UA Hyal Cast 3(H) 0 - 2 /LPF 12/15/2024 9:22 AM EDT [facility] Urine URINARY BLADDER STRUCTURE / Unknown 12/14/2024 9:28 AM EDT 12/14/2024 9:28 AM EDT Caitlin Ambrose MD URINE ORDERABLES Final Re sult [facility] [address] [facility] , [place] [address] * URINE CULTURE (NO STAIN) (12/14/2024 9:28 AM EDT) Culture No growth at 30 hours. 12/17/2024 6:34 AM EDT [facility] Urine URINARY BLADDER STRUCTURE / Unknown 12/14/2024 9:28 AM EDT 12/14/2024 9:28 AM EDT Caitlin Ambrose MD MICROBIOLOGY - GENERAL OR DERABLES Final Result Performing Organization Address City/[facility]/ZIP Co de Phone Number [facility] [address] [facility] , [place] [address] from Last 3 Months Insurance ANTHEM PPO ANTHEM PPO
--- OUTSIDE RECORDS SUMMARY | 2024-12-17 15:15 | XMS_ITS | Clinical Summary ---
Author Organization Healthcare Address [address] [place] [address] Care Team Providers Care Health Manager Name Role Phone Carlos AgabbyBuddy sierra MILLI Primary Care Provider Allergies Active Allergy Reactions Criticality Noted Date Comments Acetaminophen Hives Medium 10/12/2024 Children's Tylenol Medications methylPREDNISolo ne (Medrol Dospak) 4 MG tablets Take as directed. 1 each 10/12/2024 Active levocetirizine (Xyzal) 5 MG tablet Take 1 tablet by mouth every evening. 30 tablet 10/12/2024 Active Encounters Date Type Department Care Team Description 10/12/2024 9:24 AM EDT - 10/12/2024 11:15 AM EDT Emergency [facility] [address] [place] [address] Nahum Woodard MD Seasonal allergic rhinitis, unspecified trigger (Primary Dx); Mild intermittent asthma without complication Discharge Disposition: Home or Self Care 10/12/2024 Travel from Last 3 Months Social History Tobacco Use Types Packs/Day Years Used Date Smoking Tobacco: Never Assessed Comments Unknown Sex and Gender Information Value Date Recorded Sex Assigned at Female 10/12/2024 9:14 AM EDT Legal Sex Female 7:04 PM EDT Gender Identity Not on file Sexual Orientation Not on file Last Filed Vital Signs Vital Sign Reading Time Taken Comments Blood Pressure 130/91 10/12/2024 11:14 AM EDT Pulse 94 10/12/2024 11:14 AM EDT Temperature 36.7 C (98 F) 10/12/2024 11:14 AM EDT Respiratory Rate 16 10/12/2024 11:14 AM EDT Oxygen Saturation 98% 10/12/2024 11:14 AM EDT Inhaled Oxygen Concentration - - Weight 79.8 kg (176 lb) 10/12/2024 9:20 AM EDT Height - - Body Mass Index - - Plan of Treatment Health Maintenance Due Date Last Done Comments [facility]-Depression Screening 1988 [facility]-HIV Screening 1988 [facility]-Hepatitis C Screening 1988 [facility]-Infant/Child/Adol SDOH Screenings 1988 [facility]-Varicella Vaccines (1 of 2 - 13+ 2-dose series) 2001 HPV Vaccines (1 - 3-dose series) 2003 [facility]- SDOH Screenings 2006 [facility]-Adult SDOH Screenings 2006 [facility]-DTaP,Tdap,and Td Vaccines (1 - Tdap) 2007 [facility]-Hepatitis B Vaccines (1 of 3 - 19+ 3-dose series) 2007 [facility]-Pneumococcal Vaccine: Pediatrics (0 to 5 Years) and At-Risk Patients (6 to 49 Years) (1 of 2 - PCV) 2007 [facility]-Pap Smear 2009 [facility]-Cervical Cancer Screening 2018 [facility]-HPV/Cotest 2018 [facility]-VABPP-85 Vaccine (1 - 2023- season) 2024 [facility]-Influenza Vaccine (#1) 2025 [facility]-Zoster Vaccines (1 of 2) 2038 [facility]-Hepatitis A Vaccines Aged Out 019, 05/16/2018 No longer eligible based on patient's age to complete this topic [facility]-HIB Vaccines Aged Out No longer e ligible based on patient's age to complete this topic [facility]-IPV Vaccines Aged Out No longer e ligible based on patient's age to complete this topic [facility]-Rotavirus Vaccines Aged Out No lo nger eligible based on patient's age to complete this topic Procedures Procedure Name Priority Date/Time Associated Diagnosis Comments XR CHEST 1 VIEW STAT 10/12/2024 9:38 AM EDT from Last 3 Months Results * XR Chest 1 View (10/12/2024 9:38 AM EDT) Anatomical Region Laterality Modality Chest Computed Radiogr aphy Impressions 10/12/2024 10:03 AM EDT No acute cardiopulmonary process. CRITICAL RESULT: No. COMMUNICATION: Per this written report. Preliminary report signed by Jus Coon MD on 10/12/2024 9:45 AM By electronically signing this report, I, the attending physician, attest that I have personally reviewed the images/data for the above examination(s) and agree with the final edited report. Drafted by Jus Coon MD on 10/12/2024 9:38 AM Final report signed by Gracie Keys MD on 10/12/2024 10:03 AM Narrative 10/12/2024 10:03 AM EDT CLINICAL INDICATION: Cough TECHNIQUE: XR CHEST 1 VIEW COMPARISON: None. FINDINGS: Mediastinal and cardiac contours are within normal limits. No consolidation, pleural effusion, significantly pulmonary edema or pneumothorax. No acute osseous abnormality. Procedure Note Gracie Keys MD - 10/12/2024 CLINICAL INDICATION: Cough TECHNIQUE: XR CHEST 1 VIEW COMPARISON: None. FINDINGS: Mediastinal and cardiac contours are within normal limits. Noconsolidation, pleural effusion, significantly pulmonary edema orpneumothorax. No acute osseous abnormality. IMPRESSION: No acute cardiopulmonary process. CRITICAL RESULT: No. COMMUNICATION: Per this written report. Preliminary report signed by Jus Coon MD on 10/12/2024 9:45 AM By electronically signing this report, I, the attending physician, attestthat I have personally reviewed the images/data for the aboveexamination(s) and agree with the final edited report. Drafted by Jus Coon MD on 10/12/2024 9:38 AM Final report signed by Gracie Keys MD on 10/12/2024 10:03 AM Nahum Woodard MD IMG XR PROCEDURES Final Result from Last 3 Months Insurance ANTHEM Care Teams Health Manager Relationship Specialty Start Date End Date Buddy Santos APRN [address] [place] [address] PCP - General 10/12/24
--- OUTSIDE RECORDS SUMMARY | 2024-12-17 15:15 | XMS_ITS | Clinical Summary ---
Author Organization [facility] Address [address] [place] [address] Phone [email or web address] Care Team Providers Care Bus Analyst Name Role Phone Provider, No Primary Care Provider Unavailabl e Allergies No known active allergies Medications valACYclovir (VALTREX) 500 MG tablet TAKE 1 CAPLET BY MOUTH TWICE DAILY 07/16/19 21 Active albuterol HFA 108 (90 Base) MCG/ACT inhaler INHALE 2 PUFFS BY MOUTH EVERY 4 TO 6 HOURS NEEDED FOR SHORTNESS OF BREATH OR WHEEZING 12/31/19 22 Active Vilazodone HCl 40 MG tablet TAKE 1 TABLET BY MOUTH ONCE DAILY WITH MEAL/FOOD 04/02/20 22 Active cetirizine (ZyrTEC) 10 MG tablet 04/19/20 22 Active Airsupra 90-80 MCG/ACT aerosol INHALE 2 PUFFS BY MOUTH ONCE DAILY NEEDED FOR WHEEZING 09/17/19 25 Active SV Vitamin D3 50 MCG (2000 UT) capsule Take 1 capsule by mouth 1 (one) time each day. 07/05/19 25 Active Auvelity 45-105 MG tablet controlled-rele ase Take 1 tablet by mouth in the morning and 1 tablet before bedtime. 08/12/19 25 Active ibuprofen (MOTRIN) 800 MG tablet Take 800 mg by mouth every 8 (eight) hours if needed. 08/13/19 25 Active Tri-Sprintec 0.18/0.215/0.25 MG-35 MCG per tablet Take 1 tablet by mouth 1 (one) time each day. 08/22/19 25 Active Tirzepatide-Juan ght Management (Zepbound, tirzepatide, 7.5mg/0.5mL Single-Dose Pen SQ) 7.5 MG/0.5ML solution auto-injectorIn dications:BMI 28.0-28.9,adult ,Overweight,Enc ounter for weight loss counseling Inject 0.5 mL (7.5 mg total) under the skin 1 (one) time per week for 4 doses. Administer same day each week. 2 mL 12/03/19 25 025 Active Tirzepatide-Juan ght Management (Zepbound, tirzepatide, 5mg/0.5mL Single-Dose Pen SQ) 5 MG/0.5ML solution auto-injectorIn dications:Class 1 obesity due to excess calories with body mass index (BMI) of 33.0 to 33.9 in adult, unspecified whether serious comorbidity present Inject 0.5 mL (5 mg total) under the skin 1 (one) time per week for 4 doses. Administer same day each week. 2 mL 11/04/19 25 025 Tirzepatide-Juan ght Management (Zepbound, tirzepatide, 7.5mg/0.5mL Single-Dose Pen SQ) 7.5 MG/0.5ML solution auto-injectorIn dications:Overw eight,BMI 28.0-28.9,adult ,Encounter for weight loss counseling Inject 0.5 mL (7.5 mg total) under the skin 1 (one) time per week for 4 doses. Administer same day each week. 2 mL 12/02/19 25 025 Discontinued Active Problems No known active problems Encounters Date Type Department Care Team Description 12/01/2024 5:00 PM EDT Office Visit [place] [address] [facility] [address] [place] [address] Opal Strickland NP BMI 28.0-28.9,adult (Primary Dx); Overweight; Encounter for weight loss counseling 11/03/2024 4:00 PM EDT Office Visit [place] [address] [facility] [address] [place] [address] Nallely Bashir, PA Class 1 obesity due to excess calories with body mass index (BMI) of 33.0 to 33.9 in adult, unspecified whether serious comorbidity present (Primary Dx); Encounter for weight loss counseling 10/09/2024 Telephone [facility] [address] [place] [address] LouiseMary 10/08/2024 Documentation [employer] [facility] [employer] [address] [place] [address] Nallely Bashir PA 10/07/2024 4:30 PM EDT Office Visit [facility] [address] [facility] [address] [place] [address] Nallely Bashir PA Class 1 obesity due to excess calories with body mass index (BMI) of 33.0 to 33.9 in adult, unspecified whether serious comorbidity present (Primary Dx); Encounter for weight loss counseling; URI, acute from Last 3 Months Social History Tobacco [...] PM CDT Sexual Orientation Not on file Last Filed Vital Signs Vital Sign Reading Time Taken Comments Blood Pressure 108/62 12/01/2024 4:30 PM EDT Pulse 83 12/01/2024 4:30 PM EDT Temperature 36.9 C (98.4 F) 12/01/2024 4:30 PM EDT Respiratory Rate 14 10/07/2024 4:35 PM EDT Oxygen Saturation 97% 12/01/2024 4:30 PM EDT Inhaled Oxygen Concentration - - Weight 71.8 kg (158 lb 6.4 oz) 12/01/2024 4:30 P M EDT Height 157.5 cm (5' 2 ) 12/01/2024 4:30 PM EDT Body Mass Index 28.97 12/01/2024 4:30 PM EDT Plan of Treatment Upcoming Encounters Date Type Department Care Team (Late st Contact Info) Description 01/01/2025 5:00 PM EDT Office Visit [facility] [place] [address] [place] [address] Nallely Bashir PA [address] [place] [address] Health Maintenance Due Date Last Done Comments Dental Cleaning/Exam 1988 HIV Screening 1988 Hepatitis C Screening 1988 Cervical Cancer Screening 2004 Hep B Infection Screening - Triple Screen 2006 Hepatitis B Immunization (1 of 3 - 19+ 3-dose series) 2007 Pneumococcal: Ped (0 to 5 Yr s) and At-Risk Member (6 to 64 Yrs) (1 of 2 - PCV) 2007 Tetanus Diphtheria and Pertu ssis Immunization (1 - Tdap) 2007 Annual Preventive Exam 03/10/2020 03/10/2019 Asthma Spirometry 03/10/2021 03/10/2019 Covid-19 Immunization (1 - 2 season) 2024 Influenza Immunization (#1) 2025 HIB Immunization Aged Out No longer e ligible based on patient's age to complete this topic HPV Immunization Aged Out No longer e ligible based on patient's age to complete this topic Hepatitis A Immunization Aged Out No longer eligible based on patient's age to complete this topic Polio Immunization Aged Out No longer eligible based on patient's age to complete this topic Varicella Immunization Aged Out No lo nger eligible based on patient's age to complete this topic Procedures Procedure Name Priority Date/Time Associated Diagnosis Comments COMPREHENSIVE METABOLIC PANEL Routine 10/07/2024 Class 1 obesity due to excess calories with body mass index (BMI) of 33.0 to 33.9 in adult, unspecified whether serious comorbidity present SPIROMETRY WITHOUT BRONCHODILATOR Routine 03/10/2019 9:15 AM EDT Pre-employment health screening examination from Last 3 Months or Most Recently Relevant to Health Maintenance Results * (ABNORMAL) Comprehensive metabolic panel CMP (63866) (10/07/2024) Glucose 119(H) 65 - 99 mg/dL [facility] [...] [facility] BLOOD ORDERABLES Final R esult TASHA [address] [place] [address] * Spirometry, Complete (03/10/2019 9:15 AM EDT) FEV1 2.86 liters Comment:98% FVC 3.44 liters Comment:101% FEV1/FVC 83% % Comment:98% Breath 03/10/2019 9:15 AM EDT Nallely MOHAN PFT ORDERABLES Final Result from Last 3 Months or Most Recently Relevant to Health Maintenance Insurance OPT OUT NO COPAY NB Care Teams Bus Analyst Relationship Specialty Start Date End Date Provider, [place] [address] PCP - General Marine Designer 04/06/20
--- OUTSIDE RECORDS SUMMARY | 2024-12-17 15:15 | XMS_ITS | Encounter Summary ---
Author Organization [facility] [place] [place] [address] Care Team Providers Care Electric Tool Repairer Name Role Phone Unavailable Primary Care Provider Unavailabl e Encounter Details Date Type Department Care Team (Latest Contact Info) Description 12/17/2024 Results Follow-Up [facility] Urogynecology [address] [address] Caitlin Ambrose MD [address] [place] [address] URINALYSIS, URINE CULTURE (NO STAIN) Social History Tobacco Use Types Packs/Day Years [...] as of this encounter Progress Notes * Caitlin Ambrose MD - 12/17/2024 9:08 AM EDT Staff Please ask patient to sign up for MyChart! Patient has negative urine culture however the UA was positive. If she feels symptomatic, she can self purchase Azo tablets OTC and take 3 times daily for the next 3 days. Drink 64 oz water daily as well, always. Thank you. Caitlin Ambrose MD documented in this encounter Miscellaneous Notes * Telephone Encounter - Angelique Claudio MA - 12/17/2024 2:28 PM EDT Patient returned our call and stated that she is not having any symptoms. I told she should still drink the water Dr. Ambrose suggested. She verbalized understanding. * Telephone Encounter - Angelique Claudio MA - 12/17/2024 2:27 PM EDT ----- Message from Caitlin Ambrose MD sent at 12/17/2024 9:08 AM EDT ----- Staff Please ask patient to sign up for MyChart! Patient has negative urine culture however the UA was positive. If she feels symptomatic, she can self purchase Azo tablets OTC and take 3 times daily for the next 3 days. Drink 64 oz water daily as well, always. Thank you. Caitlin Ambrose MD ----- Message ----- From: Lab, Background User Sent: 12/15/2024 9:22 AM EDT To: Caitlin Ambrose MD documented in this encounter Plan of Treatment Upcoming Encounters Date Type Department Care Team (Late st Contact Info) Description 01/13/2025 1:30 PM EDT Office Visit [facility] [address] [place] [address] [place] [address] [place] [address] 01/19/2025 3:20 PM EDT Procedure visit [facility] Uro[facility] [address] [address] Malgorzata Zaidi APRN [address] [place] [address] 01/25/2025 3:40 PM EDT Telemedicine [facility] Urogynecology [address] [address] Caitlin Ambrose MD [address] [place] [address] documented as of this encounter Visit Diagnoses Not on filedocumented in this encounter
--- OUTSIDE RECORDS SUMMARY | 2024-12-17 15:16 | XMS_ITS | Data Portability ---
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 Her history and exam remain consistent in this regard as well. Symptoms have persisted thus far despite conservative treatment with nighttime splinting/bracing , rmmc-woo-ayndfuv medication, therapy, ongoing work restrictions, and now [...] (PROC ) No observ ation record ed. [email or web address] Terrance Clement MD [address] [place] [address], [address], 05/01/2022 14:25:22 Result Notes None recorded. Procedures Surgical History Date Name Laterality Status Provider Name and Address Organization Details Recorded Time 07/23/19 23 Op Note completed ALVA SANDHU MD [address] [place] [address], [phone], [facility] 07/23/2022 08:32:32 05/01/20 22 Injection Carpal Tunnel completed ALVA SANDHU MD [address] [place] [address], [phone], [facility] hospital 05/01/2022 17:34:18 05/01/20 Electromyography (EMG) with Nerve Conduction Study (NCV) completed Danelle Cooney (Nicky) [facility] 05/01/2022 11:26:05 Imaging Results None recorded. Procedure Notes None recorded. Medical Equipment None [...] Updated DateTime 08/07/2022 154.94 cm 30.2 kg/m2 51995.78 farhana Nettles [facility] 08/07/2022 14:27:32 Date Recorded Body height Body mass index (BMI) Body weight Provider Name and Address Organization Details Last Updated DateTime 09/11/2022 154.94 cm 30.2 kg/m2 68780.78 farhana Brush [facility] 09/11/2022 16:26:11 Date Recorded Body height Body mass index (BMI) Body weight Provider Name and Address Organization Details Last Updated DateTime 05/01/2022 154.94 cm 30.2 kg/m2 29111.78 [facility] 05/01/2022 16:33:08 Date Recorded Body height Body mass index (BMI) Body weight Provider Name and Address Organization Details Last Updated DateTime 05/29/2022 154.94 cm 30.2 kg/m2 49507.78 g [facility] [place] 05/29/2022 15:08:54 Social History None recorded. Functional Status None recorded. Mental Status None recorded. Family History Nothing Reported. Medical History No medical history recorded. Gynecological HistoryNo gynecological history recorded. Obstetrics History GPAL:G 0 P 0 0 0 0 Past Encounters Encounter ID Performer Location Encounter Start Date Encounter Closed Date Diagnosis/Indication Diagnosis SNOMED-CT Code Diagnosis ICD10 Code Diagnosis Note [id number] JONY OSBORNE PA-C [facility] [address] [place] [address] 03/20/2022 14:16:28 03/20/2022 15:01:07 Ganglion of flexor tendon sheath of finger 058323310 M67.441 Right Long Finger Flexor Retinacula r Cyst - previously treated for right long trigger finger with 2 corticoste ri[address] injections by Dr. Ulloa in 2020 Skin sensa tion disturbance 99691409 R20.9 [id number] SUZANNE DELUNA MD [facility] [address] [place] [address] 05/01/2022 10:46:03 05/02/2022 10:15:48 Paresthesia 67502876 R20.2 Skin sensa tion disturbance 05573708 R20.9 [id number] ALVA SANDHU MD [facility] [address] [place] [address] 05/01/2022 16:29:48 05/02/2022 07:54:36 Ganglion of flexor tendon sheath of finger 671000980 M67.441 Right long finger flexor retinacula r cyst Acquired t cotton ball machine tender finger 0214174 M65.30 M65.331 Right long trigger finger (status post two previous corticoste roid injections by Dr. Rose in 2020) Carpal cuca danyelle syndrome 20858493 G56.01 Right carpal tunnel CSI: 05/01/2022 EMG/NCV ( 2) was normal [id number] ALVA SANDHU MD [facility] [address] [place] [address] 05/29/2022 14:38:52 05/29/2022 16:22:09 Carpal tunnel syndrome 20454970 G56.01 Right carpal tunnel CSI: 05/01/2022 EMG/NCV ( 2) was normal Acquired t cotton ball machine tender finger 9536299 M65.30 M65.331 Right long trigger finger (status post two previous corticoste roid injections by Dr. Rose in 2020) Ganglion o f flexor tendon sheath of finger 173993828 M67.441 Right long finger flexor retinacula r cyst [id number] ALVA SANDHU MD SURGERY SCHEDULE [address] [place] [address] 07/23/2022 06:06:49 07/23/2022 06:13:22 [id number] JONY OSBORNE PA-C [facility] [address] [place] [address] 08/07/2022 13:36:18 08/08/2022 12:43:29 Postoperative care 750628088 Z48.89 s/p Right endoscopic carpal tunnel release; Right long trigger finger release; Right long finger flexor retinacula r cyst excision (DOS: 07/23/22) [id number] ALVA SANDHU MD [facility] [address] [place] [address] 09/11/2022 15:31:48 09/11/2022 16:58:55 Postoperative care 193637950 Z48.89 7 weeks s/p Right endoscopic carpal tunnel release; Right long trigger finger release; Right long finger flexor retinacula r cyst excision (DOS: 07/23/22) Health Concerns Section Related Observation LastModified by Organization Detai ls LastModified Time None Recorded Concern Status LastModified by Organization Details LastModified Time None Recorded Advance Directives Directive None Recorded Payers Insurance Date Sequence Insurance Name Policy Number Policy Hawk Covered Member ID Hawk Member ID Guarantor Name 09/08/2022 1 CHRISTIANO: KRYSTIN GONZALES [place] [id number] A Amilcar Retana [id number] Maddie Lainey 07/05/2022 LIVIA Yunior yi Retana Notes Date Note Type Note Provider Name and Address Organization Details Recorded Time 2 text/html Patient is a 31-year-old elfoi-wofm-hydgyxbp female who works for [employer]. She is being followed as a Worker's Compensation consultation for ongoing right hand symptoms. She was initially seen by my PA Jony Osborne at which time she reported numbness and [...] far is consisted of nighttime splinting/bracing, therapy, yfew-ios-prlqrzg medications, and ongoing work restrictions. She presents back today to discuss her EMG/NCV results. Consult requested by: Kamari Zavala Hand dominance: RightLocation: Right Hand LF Pain level: 10 Date of injury: 03/01/2022 Recent Surgery: No Previous upper extremity surgery? 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 Yes with restrictions Is this injury associated with a Workers Compensation claim? Yes EMG results. N/t is a little better from the splint. ALVA SANDHU MD [address], [place], [address], [facility] hospital 05/02/2022 17:08:00 2 text/html Patient reports initial irritation following the injection, but then with improvement in symptoms thereafter with resolution of nocturnal symptoms temporarily as well as improvement in the numbness and tingling in her central three digits. However, the symptoms are now back to baseline. She also reports more aggravation associated with her right long trigger finger symptoms. In summary, patient is a 31-year-old nxwab-izdn-ruvivclq female who works for [employer]. She is being followed as a Worker's Compensation consultation for ongoing right hand symptoms. She was initially seen by my PA Jony Osborne at which time she reported numbness and [...] far is consisted of nighttime splinting/bracing, therapy, umvq-bzn-sbhlcbo medications, and ongoing work restrictions. She presents back today to discuss her EMG/NCV results. Consult requested by: Kamari Zavala Hand dominance: RightLocation: Right Hand LF Pain level: 2 10 Date of injury: 03/01/2022 Recent Surgery: No Previous upper extremity surgery? 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 Yes with restrictions Is this injury associated with a Workers Compensation claim? YesInjection from 05-01-2022, worsened initially, but then improved following injection at last visit ALVA SANDHU MD [address] [place], [address], [facility] hospital 05/29/2022 17:41:49 3 text/html Patient presents today for post op follow up visit. Reports uneventful post op period. POST OP GLOBAL VISITDATE OF SURGERY: 2/20/23TIME POST SURGERY:2 WKSSURGERY:INTERVAL HISTORY:-Right endoscopic carpal tunnel release-Right long trigger finger release-Right long finger flexor retinacular cyst excision PREOP SYMPTOMSBETTER PAIN LEVEL (VAS)3/10 OVERALL ASSESSMENTIMPROVING JONY OSBORNE PA-C [address] [place], [address], Critical access hospital 08/09/2022 08:49:11 3 text/html Patient is doing very well at this time with continued complete resolution of preoperative numbness and tingling and no pain in the hand. Therapy has been helpful and she now reports normal function of the hand without any further problems. POST OP GLOBAL VISITDATE OF SURGERY: 07/23/22TIME POST SURGERY:7 weeksSURGERY:INTERVAL HISTORY:-Right endoscopic carpal tunnel release-Right long trigger finger release-Right long finger flexor retinacular cyst excision PREOP SYMPTOMSBETTER PAIN LEVEL (VAS)0/10 OVERALL ASSESSMENTIMPROVING Ms. Retana is here for a recheck. She would like to discuss therapy and potential d/c. She would like to discuss return to work and any restrictions. ALVA SANDHU MD [address] [place], [address], [facility] access hospital 09/11/2022 16:59:14 OBGyn Episode No OBEpisode recorded.
[2024-12-17 16:10] VITALS: PULSE 83; PULSE 86
[2024-12-17] MEDS: ALBUTEROL 0.083% 2.5 MG/3 ML NEB IH (16:10)
[2024-12-22 04:57] LABS: I006-IgE Cockroach, German <0.10 kU/L (Class 0); T006-IgE Cedar, Mountain <0.10 kU/L (Class 0); T007-IgE Oak, White <0.10 kU/L (Class 0); T008-IgE Elm, American <0.10 kU/L (Class 0); T015-IgE Ash, White <0.10 kU/L (Class 0); T022-IgE Pecan, Hickory <0.10 kU/L (Class 0); W001-IgE Ragweed, Short <0.10 kU/L (Class 0); W011-IgE Thistle, Russian <0.10 kU/L (Class 0); W014-IgE Pigweed, Common <0.10 kU/L (Class 0)
== END 2024-12-17 23:59 | disposition home or self-care (01) ==
LOC: RT 14:46
PROVIDERS: PCP Nurse Practitioner Family; Visit Provider Internal Medicine Pulmonary Disease
DX: J30.9 Allergic rhinitis, unspecified (principal); R06.02 Shortness of breath; R94.2 Abnormal results of pulmonary function studies
CPT/HCPCS: 36415; 82785; 86003; 94070; 94640; 95070; J7674

== ENCOUNTER 2025-01-13 11:23 | Outpatient (CLI) | payer BC, SELFPAY ==
--- OUTSIDE RECORDS SUMMARY | 2024-10-07 16:30 | XMS_ITS | Encounter Summary ---
Author Organization [facility] Address [address] [place] [phone] Phone [email or web address] Care Team Providers Care Cement Handler Name Role Phone Provider, No Primary Care Provider Unavailabl e Reason for Visit * Reason Comments Follow Up Weight Issue Encounter Details Date Type Department Care Team (Late st Contact Info) Description 10/07/2024 4:30 PM EDT Office Visit [facility] [address] [place] [address] Nallely Bashir PA [address] [place] [address] Class 1 obesity due to excess calories with body mass index (BMI) of 33.0 to 33.9 in adult, unspecified whether serious comorbidity present (Primary Dx); Encounter for weight loss counseling; URI, acute Social History Tobacco Use Types Packs/Day Years Used Date Smoking Tobacco: Never Smokeless Tobacco: Never Tobacco Cessation:Counseling Given: Not Answered Alcohol Use Standard Drinks/Week Comments Never 0 (1 standard drink = 0.6 oz pur e alcohol) Intimate Partner Violence Answer Date R ecorded Insults You Not on file 09/16/2020 Threatens You Not on file 09/16/2020 Screams at You Not on file 09/16/2020 Physically Hurt Not on file 09/16/2020 Intimate Partner Violence Score Not on file 09/16/2020 Alcohol Use Answer Date Recorded Alcohol Use Status Never 10/07/2024 Depression Answer Date Recorded PHQ Total Score 0 12/01/2024 Stress Answer Date Recorded Stress in your Life Not on file 04/08/2024 Dealing with Stress 3 04/08/2024 Comments No Sex and Gender Information Value Date Recorded Sex Assigned at Female 10/07/2024 3:22 PM CDT Legal Sex Female 12:05 AM CDT Gender Identity Female 10/07/2024 3:22 PM CDT Sexual Orientation Not on file documented as of this encounter Last Filed Vital Signs Vital Sign Reading Time Taken Comments Blood Pressure 122/86 10/07/2024 4:35 PM EDT Pulse 82 10/07/2024 4:35 PM EDT Temperature 37.7 C (99.9 F) 10/07/2024 4:35 PM EDT Respiratory Rate 14 10/07/2024 4:35 PM EDT Oxygen Saturation - - Inhaled Oxygen Concentration - - Weight 80.1 kg (176 lb 9.6 oz) 10/07/2024 4:35 P M EDT Height 155.6 cm (5' 1.25 ) 10/07/2024 4:35 PM ED T Body Mass Index 33.1 10/07/2024 4:35 PM EDT documented in this encounter Progress Notes * KIMBERLEE Alves - 10/07/2024 4:30 PM EDT Allergies Chart Review Health Maintenance History Immunizations Screenings Search Synopsis This Visit Vital Signs Assessment & Plan Class 1 obesity due to excess calories with body mass index (BMI) of 33.0 to 33.9 in adult, unspecified whether serious comorbidity present Encounter for weight loss counseling - Pt meets FDA established criteria for pharmacological weight management, BMI >/= 30 or >/= 27 with weight related comorbidity (HTN, DM, HLD). Pt has attempted weight loss for at least 3 months with lifestyle efforts in the last year, not recent though. Denies personal or family history of medullary thyroid cancer and pancreatitis. Will begin Zepbound, once I get her lab results and renal function is normal. Medication including safe use, potential s/e, use instructions, and requirement to keep monthly follow ups to continue receiving prescription. Pt verbalized agreement with POC. - Will check a CMP today and if stable, will start Zepbound 2.5mg once a week. She had normal CBC, iron, B12 and Vitamin D 08/2024. Seen on her phone. Will send results via [facility]. - Work on healthy eating, exercise, and follow up in 1 month after first injection, once initiated. Orders: Comprehensive metabolic panel CMP (32412) URI, acute -Symptoms appear to be more viral and will treat with symptom relievers and OTC cough medication. - If worsens, follow up. Did offer Covid/flu testing and she declined. Follow-up: No follow up orders placed. Subjective Maddie Retana is a 34 y.o. Reason(s) for visit on 10/07/2024: Follow Up Weight Issue Comments (if any): HPI: Maddie Retana presents to initiate weight management program. Today is intake visit. Pt is interested in Zepbound for weight loss. Height: 61.25 inches Weight: 176.6 lbs BMI: 33.10 Last labs: 08/2024 Last wellness: 10/2024 with PCP. Due this month At what age did you develop obesity? 27 Do you have any of the following conditions? Hypertension: No. 2. PCOS: No. 3. Hyperlipidemia: No. 4. DM2: No. 5. Chronic OA: No. 6. CUATE: Yes. Current or previous treatment for psychiatric/behavioral health disorder? Yes. Current or previous eating disorder? No. Smoking history?No. Alcohol history? No. Current medications (identify any possible obesogenic medications): Anti-depressants Sleep patterns: Number of hours nightly: 6 Menstrual history: regular Dietary habits (number of meals per day, grazing habits, stress eating, consumption of sugary beverages)? Eats whatever she wants, but has tried diet and exercise in the past. Physical activity patterns? work only Diet history? Has tried counting calories. No professional weight loss program. Any history of weight loss medications or bariatric surgery? No. Current weight goals: 130 Are you currently monitoring caloric intake, controlling portions, and exercising? No Family or personal history of thyroid cancer?: no History of pancreatitis?: no Time spent with patient: 30 minutes Also, she is complaining of sinus congestion, cough, fatigue, and headache. Went to PCP on Saturday and had a negative strep test. Has 3 kids and one tested positive for strep. Has been taking Mucinex DM, which helps. Having sinus and ear pressure. No GI issues. General Associated symptoms include congestion, coughing, fatigue and headaches. Pertinent negatives include no chest pain, chills, diaphoresis, fever, myalgias, nausea, sore throat or vomiting. Follow Up Weight Issue Review of Systems Constitutional: Positive for fatigue. Negative for chills, diaphoresis and fever. HENT: Positive for congestion and postnasal drip. Negative for ear pain (pressure), rhinorrhea, sneezing and sore throat. Respiratory: Positive for cough and shortness of breath. Negative for wheezing. Cardiovascular: Negative for chest pain. Gastrointestinal: Negative for diarrhea, nausea and vomiting. Musculoskeletal: Negative for myalgias. Neurological: Positive for headaches. The following portions of the patient's chart were reviewed by me during this encounter and updatedas appropriate: Tobacco Allergies Meds Problems Med Hx Surg Hx Objective Visit Vitals BP 122/86 Pulse 82 Temp 99.9 ??F Resp 14 Ht 5' 1.25 Wt 176 lb 9.6 oz BMI 33.10 kg/m?? OB Status Having periods Smoking Status Never BSA 1.86 m?? Physical Exam Vitals reviewed. Constitutional: General: She is not in acute distress. Appearance: She is obese. She is not ill-appearing, toxic-appearing or diaphoretic. HENT: Head: Normocephalic. Right Ear: Ear canal and external ear normal. There is no impacted cerumen. Left Ear: Ear canal and external ear normal. There is no impacted cerumen. Ears: Comments: fluid behind TMs bilat. Nose: Congestion present. No rhinorrhea. Mouth/Throat: Mouth: Mucous membranes are moist. Pharynx: Oropharynx is clear. No oropharyngeal exudate or posterior oropharyngeal erythema. Neck: Comments: no palpable thyroid enlargement or masses Cardiovascular: Rate and Rhythm: Regular rhythm. Tachycardia present. Heart sounds: Normal heart sounds. No murmur heard. No gallop. Pulmonary: Effort: Pulmonary effort is normal. Breath sounds: Normal breath sounds. No wheezing, rhonchi or rales. Abdominal: General: There is no distension. Palpations: Abdomen is soft. There is no mass. Tenderness: There is no abdominal tenderness. There is no guarding. Musculoskeletal: Cervical back: Neck supple. No tenderness. Lymphadenopathy: Cervical: No cervical adenopathy. Neurological: Mental Status: She is alert and oriented to person, place, and time. Psychiatric: Mood and Affect: Mood normal. KIMBERLEE Alves 10/07/2024 Note to patient: The Cures Act makes medical notes like these available to patients inthe interest of transparency. However, be advised this is a medical document. It is intended as peer to peer communication. It is written in medical language and may contain abbreviations or verbiagethat are unfamiliar. It may appear blunt or direct. Medical documents are intended to carry relevant information, facts as evident, and the clinical opinion of the practitioner. documented in this encounter Plan of Treatment Upcoming Encounters Date Type Department Care Team (Late st Contact Info) Description 01/29/2025 5:30 PM EDT Office Visit [facility] [address] [place] [address] Nallely Bashir PA [address] [place] [address] documented as of this encounter Procedures Procedure Name Priority Date/Time Associated Diagnosis Comments COMPREHENSIVE METABOLIC PANEL Routine 10/07/2024 Class 1 obesity due to excess calories with body mass index (BMI) of 33.0 to 33.9 in adult, unspecified whether serious comorbidity present documented in this encounter Results * (ABNORMAL) Comprehensive metabolic panel [facility] (92599) (10/07/2024) Pathologist [facility] Glucose 119(H) 65 - 99 mg/dL [facility] Comment: Fasting reference interval For someone without known diabetes, a glucose value between 100 and 125 mg/dL is consistent with prediabetes and should be confirmed with a follow-up test. BUN 17 7 - 25 mg/dL [facility] Creatinine 0.80 0.50 - 0.97 mg/dL [facility] eGFR 98 > OR = 60 mL/min/1. 73m2 [facility] BUN/Creatinine Ratio SEE NOTE: 6 - 22 (calc) [facility] Comment: Not Reported: BUN and Creatinine are within reference range. Sodium 139 135 - 146 mmol/L [facility] Potassium 3.8 3.5 - 5.3 mmol/L [facility] Chloride 101 98 - 110 mmol/L [facility] CO2 26 20 - 32 mmol/L [facility] Calcium 9.7 8.6 - 10.2 mg/dL [facility] Total Protein 7.1 6.1 - 8.1 g/dL [facility] Albumin 4.5 3.6 - 5.1 g/dL [facility] Globulin, Total 2.6 1.9 - 3.7 g/dL (calc) [facility] A/G Ratio 1.7 1.0 - 2.5 (calc) [facility] Total Bilirubin 0.6 0.2 - 1.2 mg/dL [facility] Alkaline Phosphatase 86 31 - 125 U/L [facility] AST 13 10 - 30 U/L [facility] ALT (SGPT) 11 6 - 29 U/L [facility] Blood (Blood, Venous) 10/07/2024 10/08/2024 5:09 AM EDT us Nallely MOHAN [facility] BLOOD ORDERABLES Final R esult [facility] [address] [place] [address] documented in this encounter Visit Diagnoses Diagnosis Class 1 obesity due to excess calories with body mass index (BMI) of 33.0 to 33.9 in adult, unspecified whether serious comorbidity present- Primary Encounter for weight loss counseling URI, acute Acute upper respiratory infections of unspecified site documented in this encounter Care Teams Cement Handler Relationship Specialty Start Date End Date Provider, SHERI Diaz [id number] PCP - General Pneumatic Tester Mechanic 04/06/20 documented as of this encounter
--- OUTSIDE RECORDS SUMMARY | 2024-11-03 16:00 | XMS_ITS | Encounter Summary ---
Author Organization [facility] Address [address] [place] [address] Phone [email or web address] Care Team Providers Care Pipe Fitter Fire Sprinkler Systems Name Role Phone Provider, No Primary Care Provider Unavailabl e Encounter Details Date Type Department Care Team (Late st Contact Info) Description 11/03/2024 4:00 PM EDT Office Visit [facility] [address] [place] [address] Nallely Bashir PA [address] [place] [address] Class 1 obesity due to [...] Description 01/29/2025 5:30 PM EDT Office Visit [facility] [address] [place] [address] Nallely Bashir PA [address] [place] [address] documented as of this encounter Visit Diagnoses Diagnosis Class 1 obesity due to excess calories with body mass index (BMI) of 33.0 to 33.9 in adult, unspecified whether serious comorbidity present- Primary Encounter for weight loss counseling documented in this encounter Care Teams Pipe Fitter Fire Sprinkler Systems Relationship Specialty Start Date End Date Provider, [place] [address] PCP - General Crew Leader/Control Room Operator 04/06/20 documented as of this encounter
--- OUTSIDE RECORDS SUMMARY | 2024-12-01 17:00 | XMS_ITS | Encounter Summary ---
Author Organization [facility] Address [address] [place] [id number] Phone [email or web address] Care Team Providers Care Apparel Pattern Maker Name Role Phone Provider, No Primary Care Provider Unavailabl e Reason for Visit * Reason Comments Weight Issue Fu weight loss Encounter Details Date Type Department Care Team (Late st Contact Info) Description 12/01/2024 5:00 PM EDT Office Visit [facility] [address] [place] [address] Opal Mujica, NICOLAS [address] [place] [address] BMI 28.0-28.9,adult (Primary Dx); Overweight; Encounter for weight loss counseling Social History [...] Sign Reading Time Taken Comments Blood Pressure 108/62 12/01/2024 4:30 PM EDT Pulse 83 12/01/2024 4:30 PM EDT Temperature 36.9 C (98.4 F) 12/01/2024 4:30 PM EDT Respiratory Rate - - Oxygen Saturation 97% 12/01/2024 4:30 PM EDT Inhaled Oxygen Concentration - - Weight 71.8 kg (158 lb 6.4 oz) 12/01/2024 4:30 P M EDT Height 157.5 cm (5' 2 ) 12/01/2024 4:30 PM EDT Body Mass Index 28.97 12/01/2024 4:30 PM EDT documented in this encounter Progress Notes * Opal Mujica NP - 12/01/2024 5:00 PM EDT Allergies Chart Review Health Maintenance History Immunizations Screenings Search Synopsis This Visit Vital Signs Assessment & Plan BMI 28.0-28.9,adult Overweight Encounter for weight loss counseling Increase Zepbound to 7.5 mg SQ weekly injection. Continue healthy diet, exercise, strength training. Follow up in 1 month for continued dose escalation, earlier with any concerns. Orders: Tirzepatide-Weight Management (Zepbound, tirzepatide, 7.5mg/0.5mL Single-Dose Pen SQ) 7.5 MG/0.5ML solution auto-injector; Inject 0.5 mL (7.5 mg total) under the skin 1 (one) time per week for 4 doses. Administer same day each week. Follow-up: No follow up orders placed. Subjective Maddie Retana is a 34 y.o. Reason(s) for visit on 12/01/2024: Weight Issue Comments (if any): Fu weight loss HPI: Pt presents for weight loss followup. Currently taking Zepbound 5 mg Appetite is well controlled on current medication dose. Reports the following side effects: mild constipation-- controlled with increase fiber and miralax,occasional mild nausea- states not problematic Pt reports they are getting adequate fiber and protein intake. Pt reports they are performing strength training to maintain lean muscle mass. Pt reports they are having normal bowel movements. Since last visit: Lbs lost: 7 Review of Systems Constitutional: Negative. Respiratory: Negative. Cardiovascular: Negative. Gastrointestinal: Negative for abdominal distention, abdominal pain, constipation, diarrhea, nauseaand vomiting. Neurological: Negative. Psychiatric/Behavioral: Negative. Genitourinary: negative. The following portions of the patient's chart were reviewed by me during this encounter and updatedas appropriate: Tobacco Allergies Meds Problems Med Hx Surg Hx Fam Hx Objective Visit Vitals BP 108/62 Pulse 83 Temp 98.4 ??F Ht 5' 2 Wt 158 lb 6.4 oz SpO2 97% BMI 28.97 kg/m?? OB Status Having periods Smoking Status Never BSA 1.77 m?? Physical Exam Constitutional: Appearance: She is well-developed. HENT: Head: Normocephalic. Right Ear: Tympanic membrane, ear canal and external ear normal. Left Ear: Tympanic membrane, ear canal and external ear normal. Nose: Nose normal. Eyes: Pupils: Pupils are equal, round, and reactive to light. Neck: Thyroid: No thyromegaly. Cardiovascular: Rate and Rhythm: Normal rate and regular rhythm. Pulmonary: Effort: Pulmonary effort is normal. Breath sounds: Normal breath sounds. Abdominal: General: Bowel sounds are normal. Palpations: Abdomen is soft. There is no mass. Tenderness: There is no abdominal tenderness. There is no guarding. Hernia: No hernia is present. Musculoskeletal: Cervical back: Normal range of motion. Lymphadenopathy: Cervical: No cervical adenopathy. Skin: General: Skin is warm and dry. Capillary Refill: Capillary refill takes less than 2 seconds. Neurological: Mental Status: She is alert and oriented to person, place, and time. Psychiatric: Behavior: Behavior normal. Plan of care formulated using shared decision making and reviewed with patient at the conclusion oftoday's visit. Education was provided in regards to diagnosis, management and any prescribed or recommended OTC medications, including instruction on safe use and discussion of potential s/e of prescribed medications. Patient verbalizes understanding of and agreement with management plan. Opal Mujica NP 12/01/2024 Note to patient: The Century Cures Act [...] and the clinical opinion of the practitioner. ADDENDUM: 12/02/2024 1508: PC from patient requesting RX be moved to [facility] in [place], cancelled at [facility] and sent to [facility] per patient request. RJ documented in this encounter Miscellaneous Notes * Addendum Note - Opal Mujica NP - 12/01/2024 5:00 PM EDTAddended by: OPAL MUJICA on: 12/02/2024 03:09 PM Modules accepted: Orders documented in this encounter Plan of Treatment Upcoming Encounters Date Type Department Care Team (Late st Contact Info) Description 01/29/2025 5:30 PM EDT Office Visit [facility] [address] [place] [address] Nallely Bashir PA [address] [place] [address] documented as of this encounter Visit Diagnoses Diagnosis BMI 28.0-28.9,adult- Primary Overweight Encounter for weight loss counseling documented in this encounter Care Teams Apparel Pattern Maker Relationship Specialty Start Date End Date Provider, [place] [address] PCP - General Sack Repairer 04/06/20 documented as of this encounter
--- OUTSIDE RECORDS SUMMARY | 2024-12-14 09:00 | XMS_ITS | Encounter Summary ---
Author Organization [place] [address] Care Team Providers Care Uniform Room Attendant Name Role Phone Unavailable Primary Care Provider Unavailabl e Reason for Visit * Reason Comments New Patient * Consultation (Routine) - Authorization Not Needed Specialty Diagnoses / Procedures Referred By Kanwal schmidt Referred To Contact Gynecology Diagnoses Female stress incontinence [facility] [address] [address] Phone: tel: fax: [facility] [address] [address] Phone: tel: fax: Referral ID Status Reason Start Date Expiration Date Visits Requested Visits Authorized [id number] Authorization Not Needed 08/27/2024 08/27/2025 99 99 Encounter Details Date Type Department Care Team (Latest Contact Info) Description 12/14/2024 9:00 AM EDT Office Visit [facility] [address] [address] Caitlin Ambrose MD [address] [place] [id number] Urge incontinence (Primary Dx); Stress incontinence; Mixed incontinence; Urinary frequency Social History Tobacco Use Types Packs/Day Years Used Date Smoking Tobacco: Never Smokeless Tobacco: Never Alcohol Use Standard Drinks/Week Comments Never 0 (1 standard drink = 0.6 oz pur e alcohol) Sexually Active Control Partners Comments Yes Comments No Sex and Gender Information Value Date Recorded Sex Assigned at Not on file Legal Sex Female 11:28 AM EDT Gender Identity Not on file Sexual Orientation Not on file documented as of this encounter Last Filed Vital Signs Vital Sign Reading Time Taken Comments Blood Pressure 106/64 12/14/2024 9:13 AM EDT Pulse 92 12/14/2024 9:13 AM EDT Temperature - - Respiratory Rate - - Oxygen Saturation 96% 12/14/2024 9:13 AM EDT Inhaled Oxygen Concentration - - Weight 69.5 kg (153 lb 3.2 oz) 12/14/2024 9:13 A M EDT Height - - Body Mass Index - - documented in this encounter Progress Notes * Caitlin Ambrose MD - 12/14/2024 9:00 AM EDTSummary: WAYNE Images from the original note were not included. New Patient Maddie Retana 1990 HPI: Patient is a 34 y.o. old female ( x 3; C/S x 0) Who is referred by Dr Fide Espinal for evaluation of incontinence as a consultation with Dr Ambrose today. KAREN > UUI Leakage with sneezing, coughing, jumping H/o BTL Does NOT desire future fertility Denies bulge General UROGYN Health Screening: Post Menopausal bleeding: Still having periods Mammogram date: No record in EMR Colonoscopy date: No record in EMR PAP date: No record in EMR Glaucoma? denies Bladder control problem: Leakage: yes - WAYNE, however KAREN is most bothersome How lon years Prior treatments for incontinence: kegels > 1 year and none Bladder emptying problems: No Prolapse/vaginal support problems: Do you have the feeling of fullness or pressure, bulge or protrusion of any vaginal tissue? No, buthas had posterior repair in the past Have you ever used a pessary ( a plastic support device) for this problem? No Bowel Problem(s): No Sexual History: Barriers to sexual activity: pain sometimes. 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 Ardon in [place] 2017 Vaginal surgery: no Mesh placed: no Past Medical History: has no past medical history on file. Past Surgical History: has no past surgical history on file. Allergies: is allergic to acetaminophen and caplyta [lumateperone]. Current Medications: has a current medication list which includes the following prescription(s): airsupra, albuterol, auvelity, cetirizine, cholecalciferol (vitamin d3), docusate calcium, fluticasone propionate, ibuprofen, levocetirizine, meloxicam, tramadol, tri-sprintec (28), valacyclovir, viibryd, zepbound, aripiprazole, bupropion, and gabapentin. Social History: reports that she has never smoked. She has never used smokeless tobacco. She reports that she does not drink alcohol and does not use drugs. Family History: family history is not on file. Review of System: Review of Systems Constitutional: Negative. Negative for chills, diaphoresis, fatigue and fever. HENT: Negative. Negative for ear discharge, ear pain and nosebleeds. Eyes: Negative. Negative for photophobia, discharge and itching. Respiratory: Negative. Negative for apnea, chest tightness, shortness of breath and wheezing. Cardiovascular: Negative. Negative for chest pain and palpitations. Gastrointestinal: Negative. Negative for abdominal distention. Endocrine: Negative. Negative for cold intolerance and heat intolerance. Genitourinary: Negative for enuresis, flank pain, genital sores and menstrual problem. Musculoskeletal: Negative for neck pain. Allergic/Immunologic: Negative. Negative for environmental allergies, food allergies and immunocompromised state. Neurological: Negative. Negative for tremors, seizures, syncope, facial asymmetry, light-headednessand headaches. Hematological: Negative. Negative for adenopathy. Does not bruise/bleed easily. Psychiatric/Behavioral: Negative. Negative for agitation and behavioral problems. Physical Exam: Vitals: 12/14/24 0913 BP: 106/64 Pulse: 92 SpO2: 96% Weight: 153 lb 3.2 oz (69.5 kg) Physical Exam Vitals and nursing note reviewed. Constitutional: Appearance: She is well-developed. HENT: Head: Normocephalic and atraumatic. Eyes: Conjunctiva/sclera: Conjunctivae normal. Pupils: Pupils are equal, round, and reactive to light. Neck: Thyroid: No thyromegaly. Cardiovascular: Rate and Rhythm: Normal rate and regular rhythm. Heart sounds: Normal heart sounds. No gallop. Pulmonary: Effort: Pulmonary effort is normal. No respiratory distress. Breath sounds: Normal breath sounds. No wheezing or rales. Abdominal: General: Bowel sounds are normal. There is no distension. Palpations: Abdomen is soft. Tenderness: There is no abdominal tenderness. There is no guarding or rebound. Musculoskeletal: General: No tenderness. Normal range of motion. Cervical back: Normal range of motion and neck supple. Lymphadenopathy: Cervical: No cervical adenopathy. Skin: General: Skin is warm and dry. Neurological: Mental Status: She is alert and oriented to person, place, and time. Deep Tendon Reflexes: Reflexes are normal and symmetric. Psychiatric: Behavior: Behavior normal. Judgment: Judgment normal. After asking the patient's permission, I completed the patient's physical and pelvic exam, and any applicable ancillary tests (i.e. Urinary catheter) with the presence of a supervisor stage carpentry named CORRINA Smith. The patient voiced understanding and gave verbal consent. Pelvic Exam: Normal EFG Atrophy none Normal mons and clitoris Normal labia Normal urethra and meatus Normal perineum and anus No masses Prolapse Stage 0 Bleeding absent Discharge absent Pain absent [place] Pelvic Strength 3/5 Office Fill Study: Catheter PVR = 10 mL UA neg FOREIGN EXCHANGE STUDENT COORDINATOR negative C&S pending Labs/Imaging: No results found for: NA , K , CL , CO2 , ANIONGAP , CALCIUM , GLU , BUN , CREATININE , ALBUMIN , PROT , LABBILI , AST , ALT , ALKPHOS , GFRAFRAM , GFRNONAFRAM No results found for this or any previous visit. No results found for this or any previous visit. HIGH COMPLEXITY LEVEL 4 BILLING STATEMENT: This consultation can be billed based on complexity of medical decision making. After discussing everything with the patient, I documented my exam findings, any applicable urine tests, and independent review of the outside imaging/labwork/careteam provider notes in order to interpret this female pat ient as having the following concerns: a chronic condition called leakage which is a part of PELVICFLOOR DISORDERS (PFDs). PFDs can include the consideration of - but is not limited to - prolapse/her peggy/incontinence/nocturia/hematuria/female sexual dysfunction. This patient has WAYNE specifically with worsening exacerbation and is seeking surgical management as I am a double-board certified surgical appliance fitter but is considering all treatment options. Due to her age and medical comorbidities listed below, she is identified as having moderate risks in proceeding with specialty treatment as discussed today. Thus, I reviewed her prior labwork and imaging studies which contribute to my personal interpretations below. As a business sales consultant, the complexity of her pre existing conditions and how they affect her pelvic floor disorders was discussed in detail including the potential for severe exacerbation or progression affecting her quality of life. 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 URINARY INCONTINENCE - Patient exhibits subjective and objective evidence today of voiding dysfunction. We discussed the pathophysiology of her disease process via anatomic drawings. She is informed of treatment options including but not limited to: expectant, conservative such as pelvic physical therapy, behavioral modifications (i.e. Weight loss, dietary changes, timed voiding and retraining, smoking cessation), and medications, or surgery. Patient bothered most by KAREN and wishes to proceed with surgery after further testing. Literature given and reviewed. All questions were answered and patient's goals and expectations were met today. - RTC for pre op UROS with LAP RUNNER - RTC for surgery consent with MD for possible sling + rx *h/o posterior repair 2017 [facility] Caitlin Ambrose MD FACOG URPS Host @ [employer] [email or web address] Division of Urogynecology [address] [place], [place] [id number] option #2 [email or web address] 12/14/24 9:30 AM documented in this encounter Miscellaneous Notes * Patient Instructions - Caitlin Ambrose MD - 12/14/2024 9:00 AM EDT Images from the original note were not included. Tap[employer] can be a convenient and powerful tool to streamline and facilitated your care; however, there may be a misunderstanding around its appropriate use. Please understand the following: Telegent Systemst should NEVER be used for urgent or emergent issues. if your concern cannot wait 24-48 hours. We advise you to either call our office or seek care in an emergency department. Additionally, messages will only be viewed during our normal operating hours. 2. Messages should be as brief and to the point as possible. 3. We may ask you to make an appointment to discuss your message so we can dedicate the time and attention necessary to deliver the high-quality care you deserve. 4. Al[employer] messages are a part of your permanent medical record We appreciate your understanding in this, and we will continue to work our hardest to deliver the top tier care that you have come to expect from our office. documented in this encounter Plan of Treatment Upcoming Encounters Date Type Department Care Team (Late st Contact Info) Description 06/07/2025 11:50 AM EST Procedure visit [facility] [address] [address] Malgorzata Zaidi APRN [address] [place] [phone] documented as of this encounter Procedures Procedure Name Priority Date/Time Associated Diagnosis Comments SEP URINALYSIS POC Routine 12/14/2024 9: 30 AM EDT URINALYSIS Routine 12/14/2024 9:28 AM EDT Urinary frequency URINE CULTURE (NO STAIN) Routine 12/14/2024 9:28 AM EDT Urinary frequency documented in this encounter Results * (ABNORMAL) [facility] URINALYSIS POC (12/14/2024 9:30 AM EDT) UA Color POC Yellow Color 12/14/2024 9:32 AM EDT [facility]A Appear POC Clear Clear 12/14/2024 9:32 AM EDT [facility] Gluc POC Negative Negative mg/dL 12/14/2024 9:32 AM EDT [facility]A Bili POC Small(A) Negative 12/14/2024 9:32 AM EDT [facility]A Ketones POC Negative Negative mg/dL 12/14/2024 9:32 AM EDT [facility]A SG POC 1.025 1.001 - 1.035 no units 12/14/2024 9:32 AM EDT [facility] UA Blood POC Negative Negative 12/14/2024 9:32 AM EDT [facility] pH POC 5.5 5.0 - 8.0 pH 12/14/2024 9:32 AM EDT [facility] Protein POC Negative Negative mg/dL 12/14/2024 9:32 AM EDT [facility] Urobilinogen POC 0.2 0.2, 1.0 12/14/2024 9:32 AM EDT [facility] UA Nitrite POC Negative Negative 12/14/2024 9:32 AM EDT [facility] Leuk Est POC Negative Negative 9:32 AM EDT [facility] Urine STRUCTURE OF URINARY TRACT PROPER / Unknown 12/14/2024 9:30 AM EDT 12/14/2024 9:32 AM EDT Caitlin Ambrose MD POINT OF CARE TEST ORDERA BLES Final Result Performing Organization Address City/[facility]/ZIP Co de Phone Number [facility] UR[facility]YN[facility]OLOGY [place] [address] [place] [address] * URINE CULTURE (NO STAIN) (12/14/2024 9:28 AM EDT) Culture No growth at 30 hours. 12/17/2024 6:34 AM EDT [facility] Urine URINARY BLADDER STRUCTURE / Unknown 12/14/2024 9:28 AM EDT 12/14/2024 9:28 AM EDT Caitlin Ambrose MD MICROBIOLOGY - GENERAL OR DERABLES Final Result Performing Organization Address City/[facility]/ZIP Co de Phone Number [facility] [address] [facility] , [place] [address] * (ABNORMAL) URINALYSIS (12/14/2024 9:28 AM EDT) UA Color Yellow 12/15/2024 9:22 AM EDT [facility] UA Appear Slightly Cloudy(A) Clear 12/15/2024 9:22 AM EDT [facility] UA Glucose Negative Negative mg/dL 12/15/2024 9:22 AM EDT [facility] UA Ketones Negative Negative mg/dL 12/15/2024 9:22 AM EDT [facility] UA Blood Negative Negative 12/15/2024 9:22 AM EDT [facility] UA pH 6.0 5.0 - 8.0 pH 12/15/2024 9:22 AM EDT [facility] UA Protein 1+ (30 mg/dL)(A) Negative mg/dL 12/15/2024 9:22 AM EDT [facility] UA Urobilinogen Normal <=1 mg/dL 9:22 AM EDT [facility] UA Bili Negative Negative 12/15/2024 9:22 AM EDT [facility] UA Nitrite Positive(A) Negative 12/15/2024 9:22 AM EDT [facility] UA Leuk Est Negative Negative 12/15/2024 9:22 AM EDT [facility] UA Spec Grav >1.030 1.001 - 1.035 no units 12/15/2024 9:22 AM EDT [facility] Comment:Reference range belle d for random specimens only. UA WBC 2 0 - 4 /HPF 12/15/2024 9:22 AM EDT [facility] UA RBC 1 0 - 3 /HPF 12/15/2024 9:22 AM EDT [facility] UA Squam Epi 4+ /LPF 12/15/2024 9:22 AM EDT [facility] UA Mucus 4+ /LPF 12/15/2024 9:22 AM EDT [facility] UA Amorph Trace /HPF 12/15/2024 9:22 AM EDT [facility] UA Bacteria 2+(A) Negative /HPF 12/15/2024 9:22 AM EDT [facility] UA Hyal Cast 3(H) 0 - 2 /LPF 12/15/2024 9:22 AM EDT [facility] Urine URINARY BLADDER STRUCTURE / Unknown 12/14/2024 9:28 AM EDT 12/14/2024 9:28 AM EDT us Caitlin Ambrose MD URINE ORDERABLES Final Re sult [facility] [address] [facility] , [address] [place] [id number] documented in this encounter Visit Diagnoses Diagnosis Urge incontinence- Primary Stress incontinence Female stress incontinence Mixed incontinence Mixed incontinence urge and stress (male)(female) Urinary frequency documented in this encounter Historical Medications * This list may reflect changes made after this encounter. VIIBRYD 20 mg Oral Tablet Take 1 tablet every day by oral route. valACYclovir (VALTREX) 500 mg Oral Tablet TAKE 1 CAPLET BY MOUTH TWICE DAILY 1 traMADoL (ULTRAM) 50 mg Oral Tablet TAKE 1 TABL PO Q 4-6 HRS PRN FOR SEVERE POST SURGICAL PAIN 3 ZEPBOUND 7.5 mg/0.5 mL SubQ Pen Injector INJECT 1 AUTO-INJECTOR SUBCUTANEOUSLY ONCE A WEEK ON THE SAME DAY 5 TRI-SPRINTEC, 28, 0.18/0.215/0.25 mg-0.035mg (28) Oral Tablet Take 1 Tablet by mouth daily. 5 meloxicam (MOBIC) 7.5 mg Oral Tablet TAKE 1 TABLE PO QD WITH FOOD REGARDLESS OF PAIN LEVEL FOR 1 WEEK. THEN TAKE 1 TABLET PO QD ONLY PRN FOR PAIN RELIEF THEREAFTER 3 levocetirizine (XYZAL) 5 mg Oral Tablet Take 5 mg by mouth every evening. 5 ibuprofen (ADVIL;MOTRIN) 800 mg Oral Tablet Take 800 mg by mouth. 5 gabapentin (NEURONTIN) 100 mg Oral Capsule TAKE 1 CAPSULE PO QHS FOR 1 WEEK 3 fluticasone propionate (FLONASE) 50 mcg/actuation Nasl Blackey, Suspension use 1 spray(s) in each nostril once daily 5 docusate calcium (SURFAK) 240 mg Oral Capsule Take 240 mg by mouth daily. 8 AUVELITY 45-105 mg Oral tablet, IR & ER, biphasic Take 1 Tablet by mouth 2 times daily. 5 Cholecalciferol, Vitamin D3, 50 mcg (2,000 unit) Oral Capsule Take 1 Capsule by mouth daily. 5 cetirizine (ZYRTEC) 10 mg Oral Tablet 2 buPROPion (WELLBUTRIN) 75 mg Oral Tablet Take 75 mg by mouth daily. ARIPiprazole (ABILIFY) 5 mg Oral Tablet Take 1 tablet every day by oral route. AIRSUPRA 90-80 mcg/actuation Inhl HFA Aerosol Inhaler INHALE 2 PUFFS BY MOUTH ONCE DAILY NEEDED FOR WHEEZING 5 albuterol (ACCUNEB) 1.25 mg/3 mL Inhl Solution for Nebulization Inhale 3 mL 3 times a day by inhalation route. added in this encounter
--- OUTSIDE RECORDS SUMMARY | 2025-01-01 17:00 | XMS_ITS | Encounter Summary ---
Author Organization [facility] Address [address] [place] [id number] Phone CareEverywhereSuppor Care Team Providers Care Licensing Registration Examiner Name Role Phone Provider, No Primary Care Provider Unavailabl e Reason for Visit * Reason Comments Follow Up Weight Issue Encounter Details Date Type Department Care Team (Late st Contact Info) Description 01/01/2025 5:00 PM EDT Office Visit [facility] [address] [place] [address] Nallely Bashir PA [address] [place] [address] BMI 27.0-27.9,adult (Primary Dx); Encounter for weight loss counseling; Fatigue, unspecified type; Nausea and vomiting, unspecified vomiting type Social History Tobacco Use Types Packs/Day Years [...] Sign Reading Time Taken Comments Blood Pressure 100/72 01/01/2025 5:00 PM EDT Pulse 88 01/01/2025 5:00 PM EDT Temperature 36.1 C (96.9 F) 01/01/2025 5:00 PM EDT Respiratory Rate 14 01/01/2025 5:00 PM EDT Oxygen Saturation - - Inhaled Oxygen Concentration - - Weight 67.5 kg (148 lb 12.8 oz) 01/01/2025 5:00 PM EDT Height 157.5 cm (5' 2 ) 01/01/2025 5:00 PM EDT Body Mass Index 27.22 01/01/2025 5:00 PM EDT documented in this encounter Progress Notes * KIMBERLEE Alves - 01/01/2025 5:00 PM EDT Allergies Chart Review Health Maintenance History Immunizations Screenings Search Synopsis This Visit Vital Signs Assessment & Plan BMI 27.0-27.9,adult Encounter for weight loss counseling - Due to severe nausea, will keep her on Zepbound 7.5mg once a week for now. She will use Zofran asneeded for nausea/vomiting. - Try to eat healthy, push fluids - Follow up in 1 month of sooner, if needed Orders: Tirzepatide-Weight Management (Zepbound, tirzepatide, 7.5mg/0.5mL Single-Dose Pen SQ) 7.5 MG/0.5ML solution auto-injector; Inject 0.5 mL (7.5 mg total) under the skin 1 (one) time per week for 4 doses. Administer same day each week. OFFICE VISIT FOLLOW UP; Future Fatigue, unspecified type - Will check labs today - Make sure she is eating and drinking fluids Orders: Comprehensive metabolic panel CMP (60372) CBC Complete blood count with diff (28092) TSH Thyroid Stimulating Hormone (25583) Hgb A1C Hemoglobin Glycosylated (19706) OFFICE VISIT FOLLOW UP; Future Nausea and vomiting, unspecified vomiting type - Will check labs and also make sure pancreatic test are normal, even though she is not having pain. Prob. related to all the medication she has been on recently. - Zofran for the n/v Orders: Comprehensive metabolic panel CMP (78693) CBC Complete blood count with diff (26983) TSH Thyroid Stimulating Hormone (09225) Amylase (62858) Lipase (06529) Lipid panel (01441) Hgb A1C Hemoglobin Glycosylated (36608) ondansetron ODT (ZOFRAN-ODT) 4 MG dispersible tablet; Take 1 tablet (4 mg total) by mouth every 8 (eight) hours if needed for nausea or vomiting for up to 7 days. Follow-up: OFFICE VISIT FOLLOW UP Return in approximately 1 Month (around 02/01/2025) . Subjective Maddie Retana is a 34 y.o. Reason(s) for visit on 01/01/2025: Follow Up Weight Issue Comments (if any): HPI: Maddie presents today for follow up on Zepbound 7.5mg once a week. States she is having severe nausea and vomiting. However, she recently had dental implant done and was on antibiotics, pain medication, and steroids. Also on valacyclovir. No real abdominal pain. Mild constipation at times, but Miralax causes diarrhea and she is taking the fiber supplement. Taking Zofran as needed, but running out. Does not feel she can tolerate going up on the dose yet. She has lost another 10 pounds for a total of 27.8. Review of Systems Constitutional: Positive for fatigue. Negative for chills, diaphoresis and fever. Respiratory: Negative for shortness of breath. Cardiovascular: Negative for chest pain and palpitations. Gastrointestinal: Positive for constipation (minimal), nausea and vomiting. Negative for abdominal pain and diarrhea. The following portions of the patient's chart were reviewed by me during this encounter and updatedas appropriate: Allergies Meds Problems Objective Visit Vitals BP 100/72 Pulse 88 Temp 96.9 ??F Resp 14 Ht 5' 2 Wt 148 lb 12.8 oz BMI 27.22 kg/m?? OB Status Having periods Smoking Status Never BSA 1.72 m?? Physical Exam Vitals reviewed. Constitutional: General: She is not in acute distress. Appearance: She is ill-appearing. She is not toxic-appearing or diaphoretic. Cardiovascular: Rate and Rhythm: Normal rate and [...] no abdominal tenderness. There is no guarding. Neurological: Mental Status: She is alert and oriented to person, place, and time. Psychiatric: Mood and Affect: Mood normal. KIMBERLEE Alves 01/01/2025 Note to patient: The Century Cures Act [...] Description 01/29/2025 5:30 PM EDT Office Visit [facility] [address] [place] [address] Nallely Bashir PA [address] [place] [address] documented as of this encounter Procedures Procedure Name Priority Date/Time Associated Diagnosis Comments CBC WITH DIFFERENTIAL/PLATELET Routine 01/01/2025 5:46 PM EDT Fatigue, unspecified type Nausea and vomiting, unspecified vomiting type TSH Routine 01/01/2025 5:46 PM EDT Fatigue, unspecified type Nausea and vomiting, unspecified vomiting type LIPASE Routine 01/01/2025 5:46 PM EDT Nausea and vomiting, unspecified vomiting type HEMOGLOBIN A1C Routine 01/01/2025 5:46 PM EDT Fatigue, unspecified type Nausea and vomiting, unspecified vomiting type AMYLASE Routine 01/01/2025 5:46 PM EDT Nausea and vomiting, unspecified vomiting type LIPID PANEL Routine 01/01/2025 5:46 PM EDT Nausea and vomiting, unspecified vomiting type COMPREHENSIVE METABOLIC PANEL Routine 01/01/2025 5:46 PM EDT Fatigue, unspecified type Nausea and vomiting, unspecified vomiting type documented in this encounter Results * Hgb A1C Hemoglobin Glycosylated (87810) (01/01/2025 5:46 PM EDT) Hemoglobin A1C 5.4 <5.7 % [facility] Comment: For the purpose of screening for the presence of diabetes: <5.7% Consistent with the absence of diabetes 5.7-6.4% Consistent with increased risk for diabetes (prediabetes) > or =6.5% Consistent with diabetes This assay result is consistent with a decreased risk of diabetes. Currently, no consensus exists regarding use of hemoglobin A1c for diagnosis of diabetes in children. According to [place] Diabetes Association (ADA) guidelines, hemoglobin A1c <7.0% represents optimal control in non- diabetic patients. Different metrics may apply to specific patient populations. Standards of Medical Care in Diabetes(ADA). Blood (Blood, Venous) 01/01/2025 5:46 PM EDT 01/02/2025 6:49 AM EDT us Nallely MOHAN LAB BLOOD ORDERABLES Final R esult [facility] [address] [place] [address] * (ABNORMAL) Lipid panel (48293) (01/01/2025 5:46 PM EDT) Cholesterol 160 <200 mg/dL [facility] Total HDL-C Direct 49(L) > OR = 50 mg/dL [facility] Triglycerides 82 <150 mg/dL [facility] LDL Calculated 94 mg/dL (calc) [facility] Comment: Reference range: <100 Desirable range <100 mg/dL for primary prevention; <70 mg/dL for patients with CHD or diabetic patients with > or = 2 CHD risk factors. LDL-C is now calculated using the Dean calculation, which is a validated novel method providing better accuracy than the Friedewald equation in the estimation of LDL-C. Thom SS et al. ZENAIDA. 2013;310(19): 3593-2358 (http://education.Avedro/faq/YSX902) Chol/HDL Ratio 3.3 <5.0 (calc) [facility] Non HDL Chol. (LDL+VLDL) 111 <130 mg/dL (calc) [facility] Comment: For patients with diabetes plus 1 major ASCVD risk factor, treating to a non-HDL-C goal of <100 mg/dL (LDL-C of <70 mg/dL) is considered a therapeutic option. Blood (Blood, Venous) 01/01/2025 5:46 PM EDT 01/02/2025 6:49 AM EDT us Nallely MOHAN LAB BLOOD ORDERABLES Final R esult TASHA [facility] [address] [place] [address] * Lipase (70117) (01/01/2025 5:46 PM EDT) Pathologist [facility] Lipase 12 7 - 60 U/L [facility] William Blood (Blood, Venous) 01/01/2025 5:46 PM EDT 01/02/2025 6:49 AM EDT Nallely OMHAN LAB BLOOD ORDERABLES Final R esult Performing Organization Address [facility] Co de Phone Number QUEST [facility] [address] [place] [address] * Amylase (92721) (01/01/2025 5:46 PM EDT) [facility] Amylase 35 21 - 101 U/L [facility] Blood (Blood, Venous) 01/01/2025 5:46 PM EDT 01/02/2025 6:49 AM EDT us Nallely MOHAN LAB BLOOD ORDERABLES Final R esult Performing Organization Address [facility] Co de Phone Number QUEST [facility] [address] [place] [address] * TSH Thyroid Stimulating Hormone?? (66691) (01/01/2025 5:46 PM EDT) [facility] TSH, High Sensitivity 0.44 mIU/L [facility] Comment: Reference Range > or = 20 Years 0.40-4.50 Ranges First trimester 0.26-2.66 Second trimester 0.55-2.73 Third trimester 0.43-2.91 Blood (Blood, Venous) 01/01/2025 5:46 PM EDT 01/02/2025 6:49 AM EDT Nallely MOHAN LAB BLOOD ORDERABLES Final R esult Performing Organization Address [facility] Co de Phone Number QUEST [facility] [address] [place] [address] * CBC Complete blood count with diff (08281) (01/01/2025 5:46 PM EDT) [facility] Auto WBC 6.9 3.8 - 10.8 Thousand/u L [facility] RBC 4.54 3.80 - 5.10 Million/uL [facility] Hemoglobin 13.6 11.7 - 15.5 g/dL [facility] Hematocrit 41.9 35.0 - 45.0 % [facility] MCV 92.3 80.0 - 100.0 fL [facility] MCH 30.0 27.0 - 33.0 pg [facility] MCHC 32.5 32.0 - 36.0 g/dL [facility] Comment: For adults, a slight decrease in the calculated MCHC value (in the range of 30 to 32 g/dL) is most likely not clinically significant; however, it should be interpreted with caution in correlation with other red cell parameters and the patient's clinical condition. RDW 12.6 11.0 - 15.0 % [facility] Platelets 286 140 - 400 Thousand/u L [facility] MPV 10.9 7.5 - 12.5 fL [facility] Neutrophils Absolute 3,843 1,500 - 7,800 cells/uL [facility] Lymphocytes Absolute 2,663 850 - 3,900 cells/uL [facility] Monocytes Absolute 352 200 - 950 cells/uL [facility] Eosinophils Absolute 21 15 - 500 cells/uL [facility] Basophils Absolute 21 0 - 200 cells/uL [facility] Neutrophils Relative 55.7 % [facility] Lymphocytes Relative 38.6 % [facility] Monocytes Relative 5.1 % [facility] Eosinophils Relative 0.3 % [facility] Basophils Relative 0.3 % [facility] Blood (Blood, Venous) 01/01/2025 5:46 PM EDT 01/02/2025 6:49 AM EDT us Nallely MOHAN LAB BLOOD ORDERABLES Final R esult T[facility] Thomas [address] [place] [address] * (ABNORMAL) Comprehensive metabolic panel CMP (08999) (01/01/2025 5:46 PM EDT) Glucose 83 65 - 99 mg/dL [facility] Comment: Fasting reference interval BUN 15 7 - 25 mg/dL [facility] Creatinine 0.86 0.50 - 0.97 mg/dL [facility] eGFR 90 > OR = 60 mL/min/1. 73m2 [facility] BUN/Creatinine Ratio SEE NOTE: 6 - 22 (calc) [facility] Comment: Not Reported: BUN and Creatinine are within reference range. Sodium 140 135 - 146 mmol/L [facility] Potassium 3.8 3.5 - 5.3 mmol/L [facility] Chloride 103 98 - 110 mmol/L [facility] CO2 30 20 - 32 mmol/L [facility] Calcium 9.2 8.6 - 10.2 mg/dL [facility] Total Protein 6.6 6.1 - 8.1 g/dL [facility] Albumin 4.3 3.6 - 5.1 g/dL [facility] Globulin, Total 2.3 1.9 - 3.7 g/dL (calc) [facility] A/G Ratio 1.9 1.0 - 2.5 (calc) [facility] Total Bilirubin 1.3(H) 0.2 - 1.2 mg/dL [facility] Alkaline Phosphatase 68 31 - 125 U/L [facility] AST 11 10 - 30 U/L [facility] ALT (SGPT) 13 6 - 29 U/L [facility] Blood (Blood, Venous) 01/01/2025 5:46 PM EDT 01/02/2025 6:49 AM EDT us Nallely MOHAN LAB BLOOD ORDERABLES Final R esult T[facility] [address] [place] [address] documented in this encounter Visit Diagnoses Diagnosis BMI 27.0-27.9,adult- Primary Encounter for weight loss counseling Fatigue, unspecified type Nausea and vomiting, unspecified vomiting type documented in this encounter Care Teams Licensing Registration Examiner Relationship Specialty Start Date End Date Provider, SHERI Diaz [id number] PCP - General Superintendent Laundry 04/06/20 documented as of this encounter
--- OUTSIDE RECORDS SUMMARY | 2025-01-15 11:26 | XMS_ITS | Encounter Summary ---
Author Organization [facility] [place] [address] Care Team Providers Care Roving Technician Name Role Phone Unavailable Primary Care Provider Unavailabl e Encounter Details Date Type Department Care Team (Latest Contact Info) Description 12/17/2024 Results Follow-Up [facility] [address] [address] Caitlin Ambrose MD [address] [place] [address] URINALYSIS, URINE CULTURE (NO STAIN) [...] as of this encounter Progress Notes * Ciatlin Ambrose MD - 12/17/2024 9:08 AM EDT [...] 11:50 AM EST Procedure visit [facility] [address] [address] Malgorzata Zaidi APRN [address] [place] [id number] documented as of this encounter Visit Diagnoses Not on filedocumented in this encounter
--- OUTSIDE RECORDS SUMMARY | 2025-01-15 11:26 | XMS_ITS | Encounter Summary ---
Author Organization [facility] Address [address] [place] [address] Phone CareEverywhereSuppor [email or web address] Care Team Providers Care Revenue Cycle Manager Name Role Phone Provider, No Primary Care Provider Unavailabl e Encounter Details Date Type Department Care Team (Late st Contact Info) Description 01/13/2025 Documentation [facility] [address] [place] [address] Nallely Bashir, PA [address] [place] [address] Social History Tobacco Use Types Packs/Day Years [...] encounter Progress Notes * KIMBERLEE Alves - 01/13/2025 4:37 PM EDT Maddie can not tolerate the 7.5mg of Zepbound. Will decrease back down to 5mg and send in more Zofran. documented in this encounter Plan of Treatment Upcoming Encounters Date Type Department Care Team (Late st Contact Info) Description 01/29/2025 5:30 PM EDT Office Visit [facility] [address] [place] [address] Nallely Bashir PA [address] [place] [address] documented as of this encounter Visit Diagnoses Diagnosis Nausea and vomiting, unspecified vomiting type- Primary BMI 27.0-27.9,adult documented in this encounter Care Teams Revenue Cycle Manager Relationship Specialty Start Date End Date Provider, [place] [address] PCP - General Livestock Farmworker 04/06/20 documented as of this encounter
--- OUTSIDE RECORDS SUMMARY | 2025-01-15 11:26 | XMS_ITS | Clinical Summary ---
Author Organization [facility] Address [address] [id number] Care Team Providers Care Lace Finisher Name Role Phone Danielle Buddy Liu APRN Primary Care Provider [phone] Allergies Active Allergy Reactions Criticality Noted Date Comments Acetaminophen Hives Medium 10/12/2024 Children's Tylenol Medications methylPREDNISolo ne (Medrol Dospak) 4 MG tablets Take as directed. 1 each 10/12/2024 Active levocetirizine (Xyzal) 5 MG tablet Take 1 tablet by mouth every evening. 30 tablet 10/12/2024 Active Social History Tobacco Use Types Packs/Day Years [...] of 2 - 13+ 2-dose series) 2001 [facility]- SDOH Screenings 2006 [facility]-Adult SDOH Screenings 2006 [facility]-DTaP,Tdap,and Td Vaccines (1 - Tdap) 2007 [facility]-Hepatitis B Vaccines (1 of 3 - 19+ 3-dose series) 2007 [facility]-Pneumococcal Vaccine: Pediatrics (0 to 5 Years) and At-Risk Patients (6 to 49 Years) (1 of 2 - PCV) 2007 [facility]-Pap Smear 2009 HPV Vaccines (1 - 3-dose SCDM series) 2015 [facility]-Cervical Cancer Screening 2018 [facility]-HPV/Cotest 2018 PMN-DISZU-27 Vaccine (1 - 2023-25 season) 2024 [facility]-Influenza Vaccine (#1) 2025 [facility]-Zoster [...] on patient's age to complete this topic Insurance KRYSTIN Care Teams Lace Finisher Relationship Specialty Start Date End Date Buddy Santos APRN [address] [place] [address] PCP - General 10/12/24
--- OUTSIDE RECORDS SUMMARY | 2025-01-15 11:26 | XMS_ITS | Clinical Summary ---
Author Organization [facility] Address [address] [place] [phone] Phone [email or web address] Care Team Providers Care Cigar Head Stringer Name Role Phone Provider, No Primary Care Provider Unavailabl e Allergies Active Allergy Reactions Criticality Noted Date Comments Acetaminophen Hives,Other (see comments) Medium 03/07/2017 Childrens's Tylenol only, can take regular acetaminophen Children's Tylenol Other Reaction(s) from [facility]: UNK Children's Tylenol CHILDREN TYLENOL ONLY CAUSED ISSUE Lumateperone Other (see comments) Medium 12/14/2024 Severe dizziness and spacing out Medications valACYclovir (VALTREX) 500 MG tablet TAKE [...] DAILY NEEDED FOR WHEEZING 09/17/19 25 Active ibuprofen (MOTRIN) 800 MG tablet Take 800 mg by mouth every 8 (eight) hours if needed. 08/13/19 25 Active Tri-Sprintec 0.18/0.215/0.2 5 MG-35 MCG per tablet Take 1 tablet by mouth 1 (one) time each day. 08/22/19 25 Active Tirzepatide-We ight Management (Zepbound, tirzepatide, 5mg/0.5mL Single-Dose Pen SQ) 5 MG/0.5ML solution auto-injectorI ndications:BMI 27.0-27.9,adul t Inject 0.5 mL (5 mg total) under the skin 1 (one) time per week for 4 doses. Administer same day each week. 2 mL 01/14/20 25 025 Active ondansetron (Zofran) 4 MG tabletIndicati ons:Nausea and vomiting, unspecified vomiting type Take 1 tablet (4 mg total) by mouth every 8 (eight) hours if needed for nausea or vomiting for up to 7 days. 20 tablet 01/14/20 25 025 Active SV Vitamin D3 50 MCG (1999) capsule Take 1 capsule by mouth 1 (one) time each day. 07/05/19 25 025 Discontinued Auvelity 45-105 MG tablet controlled-rel ease Take 1 tablet by mouth in the morning and 1 tablet before bedtime. 08/12/19 25 025 Discontinued( erapy completed) Tirzepatide-We ight Management (Zepbound, tirzepatide, 7.5mg/0.5mL Single-Dose Pen SQ) 7.5 MG/0.5ML solution auto-injectorI ndications:BMI 28.0-28.9,adul t,Overweight,E ncounter for weight loss counseling Inject 0.5 mL (7.5 mg total) under the skin 1 (one) time per week for 4 doses. Administer same day each week. 2 mL 12/03/19 25 025 ondansetron ODT (ZOFRAN-ODT) 4 MG dispersible tabletIndicati ons:Nausea and vomiting, unspecified vomiting type Take 1 tablet (4 mg total) by mouth every 8 (eight) hours if needed for nausea or vomiting for up to 7 days. 20 tablet 01/02/20 25 025 Tirzepatide-We ight Management (Zepbound, tirzepatide, 7.5mg/0.5mL Single-Dose Pen SQ) 7.5 MG/0.5ML solution auto-injectorI ndications:BMI 27.0-27.9,adul t Inject 0.5 mL (7.5 mg total) under the skin 1 (one) time per week for 4 doses. Administer same day each week. 2 mL 01/02/20 25 025 Discontinued(Si de effects) Active Problems No known active problems Encounters Date Type Department Care Team Description 01/13/[address] [place] [address] Nallely Bashir PA 01/01/2025 5:00 PM EDT Office Visit [place] [address] [place] [address] Nallely Bashir PA BMI 27.0-27.9,adult (Primary Dx); Encounter for weight loss counseling; Fatigue, unspecified type; Nausea and vomiting, unspecified vomiting type 12/01/2024 5:00 PM EDT Office [address] [place] [address] Opal Strickland NP BMI 28.0-28.9,adult (Primary Dx); Overweight; Encounter for weight loss counseling 11/03/2024 4:00 PM EDT Office [address] [place] [address] Nallely Bashir PA Class 1 obesity due to excess calories with body mass index (BMI) of 33.0 to 33.9 in adult, unspecified whether serious comorbidity present (Primary Dx); Encounter for weight loss counseling from Last 3 Months Social History Tobacco [...] 14 01/01/2025 5:00 PM EDT Oxygen Saturation 97% 12/01/2024 4:30 PM EDT Inhaled Oxygen Concentration - - Weight 67.5 kg (148 lb 12.8 oz) 01/01/2025 5:00 PM EDT Height 157.5 cm (5' 2 ) 01/01/2025 5:00 PM EDT Body Mass Index 27.22 01/01/2025 5:00 PM EDT Plan of Treatment Upcoming Encounters Date Type Department Care Team (Late st Contact Info) Description 01/29/2025 5:30 PM EDT Office Visit [facility] [address] [place] [address] Nallely Bashir PA [address] [place] [address] Health Maintenance Due Date Last Done Comments Cervical Cancer Screening Combo 1988 Dental Cleaning/Exam 1988 HIV Screening 1988 HPV / Cotest 1988 Hepatitis C Screening 1988 Pap Testing 1988 HPV Immunization (1 - 2-dose series) 1999 Hep B Infection Screening - Triple Screen [...] Procedure Name Priority Date/Time Associated Diagnosis Comments HEMOGLOBIN A1C Routine 01/01/2025 5:46 PM EDT Fatigue, unspecified type Nausea and vomiting, unspecified vomiting type LIPID PANEL Routine 01/01/2025 5:46 PM EDT Nausea and vomiting, unspecified vomiting type LIPASE Routine 01/01/2025 5:46 PM EDT Nausea and vomiting, unspecified vomiting type AMYLASE Routine 01/01/2025 5:46 PM EDT Nausea and vomiting, unspecified vomiting type TSH Routine 01/01/2025 5:46 PM EDT Fatigue, unspecified type Nausea and vomiting, unspecified vomiting type CBC WITH DIFFERENTIAL/PLATELET Routine 01/01/2025 5:46 PM EDT Fatigue, unspecified type Nausea and vomiting, unspecified vomiting type COMPREHENSIVE METABOLIC PANEL Routine 01/01/2025 5:46 PM EDT Fatigue, unspecified type Nausea and vomiting, unspecified vomiting type SPIROMETRY WITHOUT BRONCHODILATOR Routine 03/10/2019 9:15 AM EDT Pre-employment health screening examination from Last 3 Months or Most Recently Relevant to Health Maintenance Results * CBC Complete blood count with diff (46120) (01/01/2025 5:46 PM EDT) Auto WBC 6.9 3.8 - 10.8 Thousand/u [...] ORDERABLES Final R esult Performing Organization Address [facility] Co de Phone Number QUEST [facility] [address] [place] [address] * TSH Thyroid Stimulating Hormone?? (26053) (01/01/2025 5:46 PM EDT) TSH, High Sensitivity 0.44 mIU/L [facility] Comment: Reference Range > or = 20 Years 0.40-4.50 Ranges First trimester 0.26-2.66 Second trimester 0.55-2.73 Third trimester 0.43-2.91 Blood (Blood, Venous) 01/01/2025 5:46 PM EDT 01/02/2025 6:49 AM EDT Nallely MOHAN LAB BLOOD ORDERABLES Final R esult Performing Organization Address [facility] Co de Phone Number QUEST Care Team [facility] [address] [place] [address] * Lipase (51124) (01/01/2025 5:46 PM EDT) Pathologist [facility] Lipase 12 7 - 60 U/L [facility] Blood (Blood, Venous) 01/01/2025 5:46 PM EDT 01/02/2025 6:49 AM EDT Nallely MOHAN LAB BLOOD ORDERABLES Final R esult Performing Organization Address [facility] Co de Phone Number QUEST [facility] [address] [place] [address] * Hgb A1C Hemoglobin Glycosylated (92417) (01/01/2025 5:46 PM EDT) Pathologist [facility] Hemoglobin A1C 5.4 <5.7 % [facility] Comment: For the purpose of screening for the presence of diabetes: <5.7% Consistent with the absence of diabetes 5.7-6.4% Consistent with increased risk for diabetes (prediabetes) > or =6.5% Consistent with diabetes This assay result is consistent with a decreased risk of diabetes. Currently, no consensus exists regarding use of hemoglobin A1c for diagnosis of diabetes in children. According to [place] Diabetes Association (ADA) guidelines, hemoglobin A1c <7.0% represents optimal control in non- diabetic patients. Different metrics may apply to specific patient populations. Standards of Medical Care in Diabetes(ADA). Blood (Blood, Venous) 01/01/2025 5:46 PM EDT 01/02/2025 6:49 AM EDT us Nallely MOHAN LAB BLOOD ORDERABLES Final R esult Performing Organization Address City/[facility]/ZIP Co de Phone Number QUEST [facility] [address] [place] [address] * Amylase (71309) (01/01/2025 5:46 PM EDT) Amylase 35 21 - 101 U/L [facility] Blood (Blood, Venous) 01/01/2025 5:46 PM EDT 01/02/2025 6:49 AM EDT us Nallely MOAHN LAB BLOOD ORDERABLES Final R esult Performing Organization Address [facility]/ZIP Co de Phone Number QUEST [facility] [address] [place] [address] * (ABNORMAL) Lipid panel (85603) (01/01/2025 5:46 PM EDT) Cholesterol 160 <200 mg/dL [facility] Total HDL-C Direct 49(L) > OR = 50 mg/dL [facility] Triglycerides 82 <150 mg/dL [facility] LDL Calculated 94 mg/dL (calc) [facility] Comment: Reference range: <100 Desirable range <100 mg/dL for primary prevention; <70 mg/dL for patients with CHD or diabetic patients with > or = 2 CHD risk factors. LDL-C is now calculated using the Dean calculation, which is a validated novel method providing better accuracy than the Friedewald equation in the estimation of LDL-C. Thom GRANDA et al. ZENAIDA. 2013;310(19): 7333-0150 (http://education.Predixion Software/faq/SES319) Chol/HDL Ratio 3.3 <5.0 (calc) [facility] Non HDL Chol. (LDL+VLDL) 111 <130 mg/dL (calc) [facility] Comment: For patients with diabetes plus 1 major ASCVD risk factor, treating to a non-HDL-C goal of <100 mg/dL (LDL-C of <70 mg/dL) is considered a therapeutic option. Blood (Blood, Venous) 01/01/2025 5:46 PM EDT 01/02/2025 6:49 AM EDT us Nallely MOHAN LAB BLOOD ORDERABLES Final R esult [facility] [address] [place] [address] * (ABNORMAL) Comprehensive metabolic panel [facility] (64603) (01/01/2025 5:46 PM EDT) [facility] Glucose 83 65 - 99 mg/dL [facility] Comment: Fasting reference interval BUN 15 7 - 25 mg/dL [facility] Creatinine 0.86 0.50 - 0.97 mg/dL [facility] eGFR 90 > OR = 60 mL/min/1. 73m2 [facility] BUN/Creatinine Ratio SEE NOTE: (calc) [facility] Comment: Not Reported: BUN and Creatinine are within reference range. Sodium 140 135 - 146 mmol/L [facility] Potassium 3.8 3.5 - 5.3 mmol/L [facility] Chloride 103 98 - 110 [...] AST 11 10 - 30 U/L [facility] ALT (SGPT) 13 6 - 29 U/L [facility] Blood (Blood, Venous) 01/01/2025 5:46 PM EDT 01/02/2025 6:49 AM EDT us Nallely MOHAN LAB BLOOD ORDERABLES Final R esult [facility] [address] [place] [address] * Spirometry, Complete (03/10/2019 9:15 AM EDT) FEV1 2.86 liters Comment:98% FVC 3.44 liters Comment:101% FEV1/FVC 83% % Comment:98% Breath 03/10/2019 9:15 AM EDT us Nallely MOHAN PFT ORDERABLES Final Result from Last 3 Months or Most Recently Relevant to Health Maintenance Insurance ANA, [place]ER[place] [id number] OPT OUT NO COPAY NB Care Teams Cigar Head Stringer Relationship Specialty Start Date End Date Provider, [place] [address] PCP - General Coke Drawer 04/06/20
--- OUTSIDE RECORDS SUMMARY | 2025-01-15 11:26 | XMS_ITS | Clinical Summary ---
Author Organization [facility] Address [address] [place] [address] Care Team Providers Care Instructor Pilot Name Role Phone Provider, No Known Primary Care Provider [phone] Allergies Active Allergy Reactions Criticality Noted Date Comments Acetaminophen Hives 07/21/2017 CHILDREN TYLENOL ONLY CAUSED ISSUE Medications buPROPion (WELLBUTRIN) 75 MG tablet Take 75 mg by mouth Daily. Active docusate calcium (SURFAK) 240 MG capsule Take 1 capsule by mouth Daily. 30 capsule 1 12/20/2017 10:48 AM EDT 12/20/2017 Active lactulose (CHRONULAC) 10 GM/15ML solution solution (encephalopathy ) Take 30 mL by mouth Every Night. 473 mL 12/20/2017 9:29 AM EDT 12/20/2017 Active metroNIDAZOLE (FLAGYL) 500 MG tablet Take 1 tablet by mouth 2 (Two) Times a Day. 10 tablet 01/19/2018 Active Active Problems Problem Noted Date Diagnosed Date Rectocele 12/19/2017 care following vaginal delivery 10/08 Vaginal bleeding in 10/04/2017 Non-stress test reactive 09/29/2017 09/16/2017 Hx of PTL ( labor), current Resolved Problems Problem Noted Date Diagnosed Date Resolved Date 07/20/2017 10/08/2017 Family History Medical History Relation Name Comments Alcohol abuse Father Arthritis Maternal Grandmother Hypertension Maternal Grandmother Lung cancer Maternal Grandmother Relation Name Status Comments Father Maternal Grandmother Social History Tobacco Use Types Packs/Day Years Used Date Smoking Tobacco: Never Smokeless Tobacco: Never Alcohol Use Standard Drinks/Week Comments No 0 (1 standard drink = 0.6 oz pur e alcohol) Sanford Depression Scale Answer Date Recorded Retired Sanford Depression Score 11 10/09/2017 Retired EPD Scale: Thought of Harming Self Unrec ognized value 10/09/2017 Abuse Screen Answer Date Recorded Unsafe at Home or Work/School Not on file Feels Threatened by Someone? Not on file 02/2023 Does Anyone Keep You from Co ntacting Others or Doint Things Outside the Home? Not on file 03/11/2023 Physical Sign of Abuse Present Not on file 1 Housing Stability Answer Date Recorded Current Living Arrangements Not on file 02/2023 Potentially Unsafe Housing Conditions Not on hugo e 03/11/2023 Family and Community Support Answer Kolton e Recorded Help with Day-to-Day Activities Not on file 03/11/2023 Lonely or Isolated Not on file 03/11/2023 Employment Answer Date Recorded Do you want help finding or keeping work or a yola b? Not on file 03/11/2023 Disabilities Answer Date Recorded Concentrating, Remembering, or Making Decisions Difficulty Not on file 03/11/2023 Doing Errands Independently Difficulty Not on fi le 03/11/2023 Education Answer Date Recorded Help with school or training? Not on file Preferred Language Not on file 03/11/2023 Comments No Sex and Gender Information Value Date Recorded Sex Assigned at Not on file Legal Sex Female 2:02 PM EST Gender Identity Not on file Sexual Orientation Not on file Last Filed Vital Signs Vital Sign Reading Time Taken Comments Blood Pressure 113/77 01/19/2018 5:40 PM EDT Pulse 78 01/19/2018 5:40 PM EDT Temperature 36.3 C (97.3 F) 01/19/2018 5:40 PM EDT Respiratory Rate 18 01/19/2018 5:40 PM EDT Oxygen Saturation 99% 01/19/2018 5:40 PM EDT Inhaled Oxygen Concentration - - Weight 66.2 kg (146 lb) 01/19/2018 4:07 PM EDT Height 157.5 cm (5' 2 ) 01/19/2018 4:07 PM EDT Body Mass Index 26.7 01/19/2018 4:07 PM EDT Plan of Treatment Health Maintenance Due Date Last Done Comments Annual Gynecologic Pelvic an d Breast Exam 1988 TDAP/TD VACCINES (1 - Tdap) 2007 ANNUAL PHYSICAL 12/06/2017 HEPATITIS C SCREENING 12/06/2017 COVID-19 Vaccine (2023-2 5 season) 2024 INFLUENZA VACCINE 03/03/2025 Pneumococcal Vaccine 0-49 Aged Out No longer eligible based on patient's age to complete this topic Medical Devices Implanted Type Area Cook Fast Food Device Identifier Shelf Expiration Date Model / Serial / Lot Clip Fallop Filshie Ti Pr - [id number] Implanted:Qty : 1 on 12/19/2017 by Ryan Ardon DO at [facility] Implant N/A: Fallopian Tube [employer] [id number] / / [id number] Description:Bilateral fallop chalino tubes [facility] Directives * CPR (Attempt to Resuscitate) (Latest Code Status on File) Date Activated Date Inactivated Comments 12/19/2017 4:21 PM 12/20/2017 3:12 PM Question Answer Comments Code Status (Patient has no pulse and is not breathing): CPR (Attempt to Resuscitate) Medical Interventions (Patie nt has pulse or is breathing): Full * Full Code Date Activated Date Inactivated Comments 10/08/2017 3:53 PM 10/10/2017 2:55 PM * Full Code Date Activated Date Inactivated Comments 10/08/2017 6:19 AM 10/08/2017 8:35 AM * Full Code Date Activated Date Inactivated Comments 07/23/2017 11:09 AM 07/23/2017 8:05 PM Care Teams Instructor Pilot Relationship Specialty Start Date End Date Provider, [place] [address] PCP - General 08/31/15
--- OUTSIDE RECORDS SUMMARY | 2025-01-15 11:26 | XMS_ITS | Clinical Summary ---
Author Organization [facility] Address [address] [place] [phone] Phone Care Team Providers Care Stockroom Clerk Name Role Phone Unavailable Primary Care Provider [...] Active fluticasone propionate (FLONASE) 50 mcg/actuation Nasl [place], Suspension use 1 spray(s) in each nostril [...] Department Care Team Description 12/17/2024 Results Follow-Up [facility] [address] [address] Caitlin Ambrose MD URINALYSIS, URINE CULTURE (NO STAIN) 12/14/2024 9:00 AM EDT Office Visit [facility] [address] [address] Caitlin Ambrose MD Urge incontinence (Primary Dx); Stress incontinence; Mixed incontinence; Urinary frequency from Last 3 Months Social History Tobacco [...] pont Epidur al Y Livin g Delivery Location:[facility] 2012 SAB 2015 36w 4d 9 lb 2 oz (4.139 kg) M Vag-S pont Epidur al Y Delivery Location:[facility] 2017 Term 39w 2d 7h 07m 6h 47m/0h 14m/0h 06m 9 lb 1.8 oz (4.134 kg) M Vag-S pont Epidur al N Livin g 9 9 HENSL EY,BR IDGIT SBOY Ryan Buddy Hazel t DO Complications:None [facility]) Comments:99.7 ax 130 [...] 11:50 AM EST Procedure visit [facility] [address] [address] Malgorzata Zaidi APRN [address] [place] [address] Health Maintenance Due Date Last Done Comments Annual Wellness Exam 1991 DTaP/TDaP/Td (1 - Tdap) 2007 Hepatitis B Vaccine (1 of 3 - 19+ 3-dose series) 2007 Cervical Cancer Screening 2009 Pap Smear 2009 HPV/Pap Cotest 2018 COVID-19 Vaccine ( - 2023-2 5 season) 2024 Influenza Vaccine (#1) 2025 [...] POC Yellow Color 12/14/2024 9:32 AM EDT [facility] Appear POC Clear Clear 12/14/2024 9:32 AM EDT [facility] Gluc POC Negative Negative mg/dL 12/14/2024 9:32 AM EDT [facility] Bili POC Small(A) Negative 12/14/2024 9:32 AM EDT [facility] Ketones POC Negative Negative mg/dL 12/14/2024 9:32 AM EDT [facility] SG POC 1.025 1.001 - 1.035 no units 12/14/2024 9:32 AM EDT [facility] Blood POC Negative Negative 12/14/2024 9:32 AM EDT [facility] pH POC 5.5 5.0 - 8.0 pH 12/14/2024 9:32 AM EDT [facility] Protein POC Negative Negative mg/dL 12/14/2024 9:32 AM EDT [facility]A Urobilinogen POC 0.2 0.2, 1.0 12/14/2024 9:32 AM EDT [facility] UA Nitrite POC Negative Negative 12/14/2024 9:32 AM EDT [facility] Leuk Est POC Negative Negative 9:32 AM EDT [facility] Urine STRUCTURE OF URINARY TRACT PROPER / Unknown 12/14/2024 9:30 AM EDT 12/14/2024 9:32 AM EDT Caitlin Ambrose MD POINT OF CARE TEST ORDERA BLES Final Result [facility] [address] [place] [address] * (ABNORMAL) URINALYSIS (12/14/2024 9:28 AM EDT) [...] Ambrose MD URINE ORDERABLES Final Re sult Performing Organization Address City/[facility]/ZIP Co de Phone Number [facility] [address] [facility] , [place] [address] * URINE CULTURE (NO STAIN) (12/14/2024 9:28 AM EDT) Culture No growth at 30 hours. 12/17/2024 6:34 AM EDT [facility] Urine URINARY BLADDER STRUCTURE / Unknown 12/14/2024 9:28 AM EDT 12/14/2024 9:28 AM EDT Caitlin Ambrose MD MICROBIOLOGY - GENERAL OR DERABLES Final Result [facility] [address] [facility] [address] [place] [address] from Last 3 Months Insurance ANTHEM PPO ANTHEM PPO
== END 2025-01-13 23:59 | disposition home or self-care (01) ==
LOC: LAB.DROPOF 01-15 11:24
PROVIDERS: PCP Nurse Practitioner Family; Visit Provider Student in an Organized Health Care Education/Training Program
DX: N39.0 Urinary tract infection, site not specified (principal)
CPT/HCPCS: 87086

== ENCOUNTER 2025-05-04 17:45 | Outpatient (CLI) | payer BC, SELFPAY ==
--- OUTSIDE RECORDS SUMMARY | 2025-04-05 17:00 | XMS_ITS | Encounter Summary ---
Author Organization [facility] Address [address] [place] [id number] Phone [email or web address] Care Team Providers Care Community Health Planning Director Name Role Phone Provider, No Primary Care Provider Unavailabl e Reason for Visit * Reason Comments Follow Up Weight Issue Weight loss - wan ts to stop shots Encounter Details Date Type Department Care Team (Late st Contact Info) Description 04/05/2025 5:00 PM EST Office Visit [facility] [address] [place] [address] Nallely Bashir PA [address] [place] [address] Overweight (Primary Dx); Encounter for weight loss counseling; Nausea and vomiting, unspecified vomiting type Social [...] Depression Answer Date Recorded PHQ Total Score 7 04/05/2025 Stress Answer Date Recorded Stress in your [...] Sign Reading Time Taken Comments Blood Pressure 120/68 04/05/2025 4:57 PM EST Pulse 96 04/05/2025 4:57 PM EST Temperature 36.9 C (98.4 F) 04/05/2025 4:57 PM EST Respiratory Rate - - Oxygen Saturation 99% 04/05/2025 4:57 PM EST Inhaled Oxygen Concentration - - Weight 60.9 kg (134 lb 4.8 oz) 04/05/2025 4:57 P M EST Height 157.5 cm (5' 2 ) 04/05/2025 4:57 PM EST Body Mass Index 24.56 04/05/2025 4:57 PM EST documented in this encounter Progress Notes * KIMBERLEE Alves - 04/05/2025 5:00 PM EST Allergies Chart Review Health Maintenance History Immunizations Screenings Search Synopsis This Visit Vital Signs Assessment & Plan Overweight Encounter for weight loss counseling - Will decrease Zepbound to 2.5mg once a week. Will give a 3 month supply and she will titrate off in the next 2-3 months - Follow up as needed Orders: Tirzepatide-Weight Management (Zepbound, tirzepatide, 2.5mg/0.5mL Single-Dose Pen SQ) 2.5 MG/0.5ML solution auto-injector; Inject 0.5 mL (2.5 mg total) under the skin 1 (one) time per week for 12 doses. Administer same day each week. Nausea and vomiting, unspecified vomiting type - Zofran as needed Orders: ondansetron ODT (ZOFRAN-ODT) 4 MG dispersible tablet; Take 1 tablet (4 mg total) by mouth every 8 (eight) hours if needed for nausea or vomiting for up to 20 doses. Follow-up: No follow up orders placed. Subjective Maddie Retana is a 34 y.o. Reason(s) for visit on 04/05/2025: Follow Up Weight Issue Comments (if any): Weight loss - wants to stop shots HPI: Pt presents for weight loss followup. Currently taking Zepbound 5mg once a week, but would like to decrease to 2.5mg and then stop it. Appetite is well controlled on current medication dose. Reports the following side effects: hair loss and nausea. Would like a refill on the Zofran Pt reports they are getting adequate fiber and protein intake. Pt reports they are performing strength training to maintain lean muscle mass. Pt reports they are having normal bowel movements. Since last visit: Lbs lost: 4 pounds Spent 15 minutes on weight loss counseling Review of Systems Constitutional: Positive for fatigue. Respiratory: Negative for shortness of breath. Cardiovascular: Negative for chest pain. Gastrointestinal: Positive for nausea. Negative for abdominal pain, constipation, diarrhea and vomiting. Neurological: Negative for light-headedness. The following portions of the patient's chart were reviewed by me during this encounter and updatedas appropriate: Tobacco Use History[1], Allergies[2], Current Medications[3], , Past Medical History[4], Past Surgical History[5], Family History[6], Objective Visit Vitals BP 120/68 Pulse 96 Temp 98.4 ??F Ht 5' 2 Wt 134 lb 4.8 oz SpO2 99% BMI 24.56 kg/m?? OB Status Having periods Smoking Status Never BSA 1.63 m?? Physical Exam Vitals reviewed. Constitutional: General: She is not in acute distress. Appearance: She is not ill-appearing, toxic-appearing or diaphoretic. Neck: Comments: no palpable thyroid masses or enlargement Cardiovascular: Rate and Rhythm: Normal rate and [...] Mood and Affect: Mood normal. KIMBERLEE Alves 04/05/2025 Note to patient: The Century Cures Act [...] and the clinical opinion of the practitioner. [1] Social History Tobacco Use Smoking Status Never Smokeless Tobacco Never [2] Allergies Allergen Reactions Acetaminophen Hives and Other (see comments) Childrens's Tylenol only, can take regular acetaminophen Children's Tylenol Other Reaction(s) from [facility]: UNK Children's Tylenol CHILDREN TYLENOL ONLY CAUSED ISSUE Lumateperone Other (see comments) and Dizziness Severe dizziness and spacing out Chlorpheniramine Hives Dextromethorphan Other (see comments) Phenylephrine Hives [3] Current Outpatient Medications Medication Sig Dispense Refill Airsupra 90-80 MCG/ACT aerosol INHALE 2 PUFFS BY MOUTH ONCE DAILY NEEDED FOR WHEEZING albuterol HFA 108 (90 Base) MCG/ACT inhaler INHALE 2 PUFFS BY MOUTH EVERY 4 TO 6 HOURS NEEDED FOR SHORTNESS OF BREATH OR WHEEZING ibuprofen (MOTRIN) 800 MG tablet Take 800 mg by mouth every 8 (eight) hours if needed. valACYclovir (VALTREX) 500 MG tablet TAKE 1 CAPLET BY MOUTH TWICE DAILY Vilazodone HCl 40 MG tablet TAKE 1 TABLET BY MOUTH ONCE DAILY WITH MEAL/FOOD ondansetron ODT (ZOFRAN-ODT) 4 MG dispersible tablet Take 1 tablet (4 mg total) by mouth every 8 (eight) hours if needed for nausea or vomiting for up to 20 doses. 20 tablet 0 Tirzepatide-Weight Management (Zepbound, tirzepatide, 2.5mg/0.5mL Single-Dose Pen SQ) 2.5 MG/0.5ML solution auto-injector Inject 0.5 mL (2.5 mg total) under the skin 1 (one) time per week for 12 doses. Administer same day each week. 6 mL 0 Tri-Sprintec 0.18/0.215/0.25 MG-35 MCG per tablet Take 1 tablet by mouth 1 (one) time each day. (Patient not taking: Reported on 04/05/2025) No current facility-administered medications for this visit. [4] Past Medical History: Diagnosis Date Asthma Depression Sleep apnea treated with continuous positive airway pressure (CPAP) [5] Past Surgical History: Procedure Laterality Date CARPAL TUNNEL RELEASE Right 07/23/2022 also RMF trigger finger release and ganglion cyst excision DILATION AND CURETTAGE OF UTERUS 2013 REPAIR RECTOCELE TUBAL LIGATION [6] No family history on file. 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
--- OUTSIDE RECORDS SUMMARY | 2025-05-05 10:00 | XMS_ITS | Clinical Summary ---
Author Organization [facility] Address [address] [id number] Care Team Providers Care Rolled Glass Crosscutter Name Role Phone Danielle Buddy Liu APRN Primary Care Provider [phone] Allergies Active Allergy Reactions Criticality Noted Date [...] 2015 [facility]-Cervical Cancer Screening 2018 [facility]-HPV/Cotest 2018 [facility]-FIPCG-18 Vaccine (1 - 2024- season) 2025 [facility]-Influenza Vaccine (#1) 2025 [facility]-Zoster Vaccines (1 [...] complete this topic Insurance KRYSTIN Care Teams Rolled Glass Crosscutter Relationship Specialty Start Date End Date Buddy Santos APRN [address] [place] [id number] PCP - General 10/12/24
--- OUTSIDE RECORDS SUMMARY | 2025-05-05 10:00 | XMS_ITS | Clinical Summary ---
Author Organization [facility] Address [address] [place] [phone] Phone [email or web address] Care Team Providers Care Car Distributor Name Role Phone Provider, No Primary Care Provider Unavailabl e Allergies Active Allergy Reactions Criticality Noted Date Comments Acetaminophen Hives,Other (see comments) Medium 03/07/2017 Childrens's Tylenol only, can take regular acetaminophen Children's Tylenol Other Reaction(s) from [facility]: UNK Children's Tylenol CHILDREN TYLENOL ONLY CAUSED ISSUE Chlorpheniramine Hives Low 12/16/2024 Dextromethorphan Other (see comments) Low 5 Lumateperone Other (see comments),Dizziness Medium 12/14/2024 Severe dizziness and spacing out Phenylephrine Hives Low 03/07/2017 Medications valACYclovir (VALTREX) 500 MG tablet TAKE 1 CAPLET BY MOUTH TWICE DAILY 1 Active albuterol HFA 108 (90 Base) MCG/ACT inhaler INHALE 2 PUFFS BY MOUTH EVERY 4 TO 6 HOURS NEEDED FOR SHORTNESS OF BREATH OR WHEEZING 2 Active Vilazodone HCl 40 MG tablet TAKE 1 TABLET BY MOUTH ONCE DAILY WITH MEAL/FOOD 2 Active Airsupra 90-80 MCG/ACT aerosol INHALE 2 PUFFS BY MOUTH ONCE DAILY NEEDED FOR WHEEZING 5 Active ibuprofen (MOTRIN) 800 MG tablet Take 800 mg by mouth every 8 (eight) hours if needed. 5 Active Tri-Sprintec 0.18/0.215/0.25 MG-35 MCG per tablet Take 1 tablet by mouth 1 (one) time each day. 5 Active Tirzepatide-Weig ht Management (Zepbound, tirzepatide, 2.5mg/0.5mL Single-Dose Pen SQ) 2.5 MG/0.5ML solution auto-injectorInd ications:Overwei ght Inject 0.5 mL (2.5 mg total) under the skin 1 (one) time per week for 12 doses. Administer same day each week. 6 mL 5 06/22/19 26 Active ondansetron ODT (ZOFRAN-ODT) 4 MG dispersible tabletIndication s:Nausea and vomiting, unspecified vomiting type Take 1 tablet (4 mg total) by mouth every 8 (eight) hours if needed for nausea or vomiting for up to 20 doses. 20 tablet Active Active Problems No known active problems Encounters Date Type Department Care Team Description 04/05/2025 5:00 PM EST Office Visit [place] [address] [place] [phone] Nallely Bashir PA Overweight (Primary Dx); Encounter for weight loss counseling; Nausea and vomiting, unspecified vomiting type 02/09/2025 5:30 PM EDT Office Visit [address] [address] Nallely Bashir PA Overweight with body mass index (BMI) of 25 to 25.9 in adult (Primary Dx); Encounter for weight loss counseling; Decreased hearing, unspecified laterality from Last 3 Months Social History Tobacco [...] F) 04/05/2025 4:57 PM EST Respiratory Rate 14 01/01/2025 5:00 PM EDT Oxygen Saturation 99% 04/05/2025 4:57 PM EST Inhaled Oxygen Concentration - - Weight 60.9 kg (134 lb 4.8 oz) 04/05/2025 4:57 P M EST Height 157.5 cm (5' 2 ) 04/05/2025 4:57 PM EST Body Mass Index 24.56 04/05/2025 4:57 PM EST Plan of Treatment Health Maintenance Due Date Last Done Comments Cervical Cancer Screening Combo 1988 Dental Cleaning/Exam 1988 HIV Screening 1988 HPV only / HPV + Pap 1988 Hepatitis C Screening 1988 Pap only testing 1988 HPV Immunization (1 - 2-dose series) 1999 Hep B Infection Screening - Triple Screen 2006 Hepatitis B Immunization (1 of 3 - 19+ 3-dose series) 2007 Pneumococcal Immunization (1 of 2 - PCV) 2007 Tetanus Diphtheria and Pertussis Immunization (1 - Tdap) 2007 Annual Preventive Exam 03/10/2020 03/10/2019 Asthma Spirometry 03/10/2021 03/10/2019 Covid-19 Immunization (1 - season) 2025 Influenza Immunization (#1) 2025 Hepatitis A Immunization Aged Out 019, 05/16/2018 No longer eligible based on patient's age to complete this topic HIB Immunization Aged Out No longer e ligible based on patient's age to complete this topic Polio Immunization Aged Out No longer eligible based on patient's age to complete this topic Varicella Immunization Aged Out No lo nger eligible based on patient's age to complete this topic Procedures Procedure Name Priority Date/Time Associated Diagnosis Comments PURE TONE AUDIOMETRY (THRESHOLD), AIR ONLY PC Routine 02/09/2025 6:13 PM EDT Decreased hearing, unspecified laterality SPIROMETRY WITHOUT BRONCHODILATOR Routine 03/10/2019 9:15 AM EDT Pre-employment health screening examination from Last 3 Months or Most Recently Relevant to Health Maintenance Results * Pure Tone Audiometry (Threshold); Air Only ??? PC (13044) (02/09/2025 6:13 PM EDT) Narrative Nallely Bashir PA - 02/09/2025 6:13 PM EDT See hearing test results Nallely [facility] ORDERABLE S Final Result * Spirometry, Complete (03/10/2019 9:15 AM EDT) FEV1 2.86 liters Comment:98% FVC 3.44 liters Comment:101% FEV1/FVC 83% % Comment:98% Breath 03/10/2019 9:15 AM EDT Nallely [facility] P[facility] ORDERABLES Final Result from Last 3 Months or Most Recently Relevant to Health Maintenance Insurance OPT OUT NO COPAY NB Care Teams Car Distributor Relationship Specialty Start Date End Date Provider, SHERI Diaz [id number] PCP - General Quality Systems Technician 04/06/20
--- OUTSIDE RECORDS SUMMARY | 2025-05-05 10:00 | XMS_ITS | Clinical Summary ---
Author Organization [facility] Address [address] [place] [address] Care Team Providers Care Tax Expert Name Role Phone Provider, No Known Primary Care Provider [phone] Allergies Active Allergy Reactions Criticality Noted Date [...] drink = 0.6 oz pur e alcohol) [place] Depression Scale Answer Date Recorded [place] Depression Scale Total 11 10/09/2017 The thought of harming myself has occurred to me . Unrecognized value 10/09/2017 Abuse Screen Answer Date Recorded [...] ANNUAL PHYSICAL 12/06/2017 HEPATITIS C SCREENING 12/06/2017 INFLUENZA VACCINE 01/01/2025 Pneumococcal Vaccine 0-49 Aged Out No longer eligible based on patient's age to complete this topic Medical Devices Implanted Type Area Petrographer Device Identifier Shelf Expiration Date Model / Serial / Lot Clip Fallop Filshie Ti Pr - [id number] Implanted:Qty : 1 on 12/19/2017 by Ryan Ardon DO at [facility] Implant N/A: Fallopian Tube [id number] / / [id number] Description:Bilateral fallop chalino tubes Insurance [facility] MEDICAID [facility] Advance Directives * CPR (Attempt to Resuscitate) [...] 11:09 AM 07/23/2017 8:05 PM Care Teams Tax Expert Relationship Specialty Start Date End Date Provider, [place] [address] PCP - General 08/31/15
--- OUTSIDE RECORDS SUMMARY | 2025-05-05 10:00 | XMS_ITS | Clinical Summary ---
Author Organization [facility] Address [address] [place] [phone] Phone Care Team Providers Care Head Cook Name Role Phone Unavailable Primary Care Provider [...] Active fluticasone propionate (FLONASE) 50 mcg/actuation Nasl [place], Suspension use 1 spray(s) in each nostril [...] tablet every day by oral route. Active Social History Tobacco Use Types Packs/Day [...] pont Epidur al Y Livin g Delivery Location:[facility] 2012 SAB 2015 36w 4d 9 lb 2 oz (4.139 kg) M Vag-S pont Epidur al Y Delivery Location:[facility] 2017 Term 39w 2d 7h 07m 6h 47m/0h 14m/0h 06m 9 lb 1.8 oz (4.134 kg) M Vag-S pont Epidur al N Livin g 9 9 SADE YAN IDGIT SBOY Ryan Buddysammy Hazel t DO Complications:None Delivery Location: [facility] ( [facility]) Comments:99.7 ax 130 [...] 11:50 AM EST Procedure visit [facility] [address] [phone] Malgorzata Zaidi, MILLI [address] [place] [id number] Health Maintenance Due Date Last Done Comments Annual Wellness Exam 1991 DTaP/TDaP/Td (1 - Tdap) 2007 Hepatitis B Vaccine (1 of 3 - 19+ 3-dose series) 2007 Cervical Cancer Screening 2009 Pap Smear 2009 HPV/Pap Cotest 2018 COVID-19 Vaccine (2024-2 6 season) 2025 Influenza Vaccine (#1) 2025 Meningococcal B Vaccine Aged Out No l onger eligible based on patient's age to complete this topic Pneumococcal Vaccine 0-49 Aged Out No longer eligible based on patient's age to complete this topic Insurance SHERI Vides [id number] ANTHEM PPO [place]ERI [place] [id number] ANTHEM PPO
== END 2025-05-04 23:59 | disposition home or self-care (01) ==
LOC: LAB.DROPOF 05-05 09:54
PROVIDERS: PCP Nurse Practitioner Family; Visit Provider Nurse Practitioner
DX: R35.0 Frequency of micturition (principal)
CPT/HCPCS: 87086